=== PATIENT | male | born 1960 | race Caucasian/White ===

== ENCOUNTER 2019-10-15 09:02 | Inpatient (IN) | payer OTHER ==
[~2019-10-15] VITALS: Ht 177.8 cm; Wt 65.8 kg
--- NOTE | ~2019-10-15 | HC ---
[facility] [place] [address] CONSULTATION Name: JOHNATHON THORPE Sami Room #: 209-P ADM IN M.R.#: [id number] Admission: 10/15/19 Attend Phys: Dwaine Couch MD Discharge: Date of : 64 Report #: [id number] THIS REPORT FOR: //name// CC: Segundo Couch HISTORY OF PRESENT ILLNESS: The patient is a 58-year-old male who was admitted with what appears to be more of a left-sided pleuritic type chest pain. He has been coming on for a few days, he states and this has gotten worse recently, definitely worse with deep inspiration, but also describes pressure, heaviness, squeezing sensation across his chest. He states he has had a prior infarct, but no intervention, so I am questioning that. 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 He also believes he has been taking medications. He is a long time tobacco user and continues. He does have a nicotine patch on. His troponin is negative. His EKG has nonspecific changes. He does not recall any recent stress testing and he cannot tell me the date of the prior infarct. He allegedly takes gabapentin, albuterol, Lipitor, metoprolol 25, tramadol, meloxicam, fluticasone, tizanidine, diazepam, hydrochlorothiazide and testosterone. PAST MEDICAL AND SURGICAL HISTORY: HIV positive; prior infarct, but no documentation; COPD; tobacco use; brain aneurysm with coils; right knee surgery and left shoulder; cataract and continued tobacco use. ALLERGIES: IODINE, PENICILLIN, BEE STINGS. He apparently states he carries 6 EpiPen. FAMILY HISTORY: Negative for premature coronary artery disease except for his grandfather. SOCIAL HISTORY: He is currently homeless, has disability, heavy tobacco user, has a partner who is intermittently with no children. IMAGING DATA: Chest x-ray, some density in the left upper lobe, some possible scarring and atelectasis. PHYSICAL EXAMINATION: GENERAL: He is pleasant, alert. He does wince in pain with deep inspiration, left-sided chest. VITAL SIGNS: Blood pressure is 140/76, pulse is 80s. HEENT: Eyes reveal xanthelasmas. Pharynx is clear. NECK: Shows preserved upstrokes without JVD or bruits. LUNGS: Prolonged expiratory phase. CARDIOVASCULAR: Regular rate and rhythm, S1, S2, distant heart tones. ABDOMEN: Soft. No HSM or abdominal bruit. EXTREMITIES: Reveal no edema. His pulses diminished, but intact. NEUROLOGIC: Nonfocal. [facility] [address] [place] [address] CONSULTATION Name: JOHNATHON THORPE Room #: 209-P [facility] IN M.R.#: [id number] Admission: 10/15/19 Attend Phys: Dwaine Couch MD Discharge: Date of : 64 Report #: [id number] SKIN: Warm and dry without xanthoma or ulcer. MUSCULOSKELETAL: Generalized arthritic changes. ASSESSMENT: 1. Chest pain of unclear etiology, appears to have a pleuritic component, rule out significant underlying coronary ischemia. 2. Tobacco abuse, chronic obstructive pulmonary disease. 3. Hypertension. 4. Hypercholesterolemia. RECOMMENDATIONS AND PLAN: We will obtain echo Doppler, nuclear stress testing. He is not able to ambulate for a stress test otherwise. His laboratory work, creatinine is 0.9, troponin is negative. His CBC is unremarkable at 15 and 46. Not sure we will be able to obtain any documentation of prior coronary artery disease or infarct, but I will be able to comment on that once I obtained the echo and the nuclear test ____ prior damage or any ischemic cardiomyopathy and looking to rule out any significant ischemia. Would continue current medical therapy. We will follow with you. Thank you for asking me to assist in the care of this patient. By: 0902 0928 /nt
[2019-10-15 09:10] VITALS: BP 147/77
[2019-10-15] MEDS ORDERED: GENVOYA TABLET1 EACH PO (09:32)
[2019-10-15 09:54] LABS: MCHC 32.5 g/dL (28.0-37.0)
[2019-10-15 09:56] LABS: MCH 31.2 pg (26.0-34.0); PLATELET COUNT 248 thou/uL (150-400); RBC 4.79 mil/uL (4.50-6.00); RDW 14.1 % (10.5-14.5); WBC 8.2 thou/uL (4.0-11.0)
[2019-10-15 09:59] LABS: ANION GAP 8 mmol/L (7-16); BUN 16 mg/dL (7-18); CALCIUM 10.6 mg/dL (8.5-10.1); CHLORIDE 99 mmol/L (98-107); CO2 28 mmol/L (21-32); CREATININE 0.9 mg/dL (0.7-1.3); GLUCOSE 89 mg/dL (74-106); POTASSIUM 4.2 mmol/L (3.5-5.1); SODIUM 135 mmol/L (136-145)
[2019-10-15 10:07] LABS: TROPONIN-I <0.06 ng/mL (<0.06)
[2019-10-15 10:34] LABS: ABSOLUTE NEUTROPHILS 4.5 thou/uL (1.4-8.2); PLATELET ESTIMATE NORMAL
--- NOTE | 2019-10-15 11:08 | NUR ---
1042 PT REPORTS LEFT JAW PAIN, REPORTED TO VERONICA, NO ORDERS RECIEVED.
[2019-10-15] MEDS ORDERED: NEURONTIN 300300 M1 PO (11:18)
[2019-10-15] MEDS ORDERED: PROAIR HFA8.5 GM INH (11:19)
[2019-10-15] MEDS ORDERED: LIPITOR 40 MG T40 M1 PO (11:19)
[2019-10-15] MEDS ORDERED: TOPROL XL25 MG PO (11:19)
[2019-10-15] MEDS ORDERED: TRAMADOL 50 MG50 MG PO (11:21)
[2019-10-15] MEDS ORDERED: MELOXICAM15 MG PO (11:21)
[2019-10-15] MEDS ORDERED: MARINOL 2.5 MG2.5 M1 PO (11:22)
[2019-10-15] MEDS ORDERED: BREO ELLIPTA 21 EACH IH (11:23)
[2019-10-15] MEDS ORDERED: TIZANIDINE4 MG/1 TA1 PO (11:23)
[2019-10-15] MEDS ORDERED: HYDROCHLOROTHIA25 M2 PO (11:25)
[2019-10-15] MEDS ORDERED: DIAZEPAM 5 MG5 M1 (11:25)
[2019-10-15] MEDS ORDERED: TESTOSTERO200 MG/1 M IM (11:25)
[2019-10-15 13:06] VITALS: BP 130/75
[2019-10-15 14:00] VITALS: BP 146/84
[2019-10-15 16:00] VITALS: BP 149/80
--- NOTE | 2019-10-15 16:48 | EKG ---
[address] [address] ELECTROCARDIOGRAM REPORT Name: JOHNATHON THORPE Room #: 209-P ADM IN M.R.#: [id number] Admission: 10/15/19 Attend Phys: Dwaine Couch MD Discharge: Date of : 64 Report #: [id number] THIS REPORT FOR: //name// [facility] ED Test Date: 2019-10-15 Test Time: 09:05:46 Pat Name: JOHNATHON THORPE Department: Room: 209 Gender: M Data Consultant: michael : 1960 Requested By: Ivan Cam Order Number: [id number] MD: Aditya Ho Measurements Intervals [place] Rate: 62 P: 73 MO: 138 QRS: 7 QRSD: 110 T: -79 QT: 406 QTc: 413 Interpretive Statements Sinus rhythm Probable left atrial enlargement No previous ECG available for comparison Electronically Signed On 10-15-2019 16:48:39 WASHING AND SCREENING PLANT SUPERVISOR by Aditya Ho [email or web address] <ELECTRONICALLY SIGNED> By: Aditya Ho MD 10/15/19 1648 0905 4 Aditya Ho MD /DEENA
--- NOTE | 2019-10-15 16:49 | EKG ---
[address] [address] ELECTROCARDIOGRAM REPORT Name: JOHNATHON THORPE Room #: 209-P ADM IN M.R.#: [id number] Admission: 10/15/19 Attend Phys: Dwaine Couch MD Discharge: Date of : 64 Report #: [id number] THIS REPORT FOR: //name// [facility] ED Test Date: 2019-10-15 Test Time: 10:24:15 Pat Name: JOHNATHON THORPE Department: Room: 209 Gender: M Resource Efficiency Manager: GAYE : 1960 Requested By: Ivan Cam Order Number: [id number] MD: Aditya Ho Measurements Intervals [place] Rate: 74 P: 68 NM: 130 QRS: -14 QRSD: 88 T: 257 QT: 381 QTc: 423 Interpretive Statements Sinus rhythm Nonspecific T abnormalities, diffuse leads No previous ECG available for comparison Electronically Signed On 10-15-2019 16:49:00 DIRECTOR OF GRADUATE MEDICAL EDUCATION by Aditya Ho [email or web address] <ELECTRONICALLY SIGNED> By: Aditya Ho MD 10/15/19 1649 1024 [facility] Aditya Ho MD /DEENA
--- NOTE | 2019-10-15 17:04 | NUR ---
PT CARE ASSUMED APPROX 1400. ASSESSMENTS CHARTED. PT DENIES SOA. VSS. REPORTS PAIN TO LEFT CHEST. REPORTS ADEQUATE PAIN MANAGEMENT WITH [facility]. UP WITH SBA. IVF STARTED. PT'S PARTNER TO BRING HOME MEDS IN AND NONFORM MED ALREADY IN COMPUTER. WILL GET MEDS TO PHARMACY ONCE MEDS ARRIVE. SECURITY ASSURED THIS NURSE UPON INQUIRING THAT PT'S CAR WON'T BE TOWED FROM ED PARKING LOT. PT INFORMED. NO DISTRESS NOTED.
[2019-10-16 04:39] VITALS: BP 171/75
[2019-10-16 05:30] LABS: HEMATOCRIT 40.4 % (42.0-52.0); HEMOGLOBIN 13.1 gm/dL (14.0-18.0); MCH 31.2 pg (26.0-34.0); MCHC 32.4 g/dL (28.0-37.0); MCV 96.1 fL (80.0-100.0); RBC 4.21 mil/uL (4.50-6.00); WBC 6.2 thou/uL (4.0-11.0)
[2019-10-16 05:59] LABS: ANION GAP 9 mmol/L (7-16); BUN 19 mg/dL (7-18); CALCIUM 9.4 mg/dL (8.5-10.1); CHLORIDE 100 mmol/L (98-107); CO2 25 mmol/L (21-32); GLUCOSE 85 mg/dL (74-106); POTASSIUM 4.6 mmol/L (3.5-5.1); SODIUM 134 mmol/L (136-145); TROPONIN-I <0.06 ng/mL (<0.06)
[2019-10-16 07:45] VITALS: BP 146/76
--- NOTE | 2019-10-16 07:54 | NUR ---
pt pain controlled with pain meds for few hours then it comes back, vss, pt appropriate with call light, voiding per urinal, iv fluids infusing, report given to next shift to con't with ppoc.
--- NOTE | 2019-10-16 09:50 | 2DMMODE ---
[facility] [address] [employer] [facility] [place] [address] 2 D/M-MODE ECHOCARDIOGRAM Name: THORPEJOHNATHON R Room #: 209-P [facility] IN .R.#: [id number] Admission: 10/15/19 Attend Phys: Dwaine Couch MD Discharge: Date of : 64 Report #: [id number] THIS REPORT FOR: //name// APPROVED REPORT Study performed: 10/16/2019 08:51:21 EXAM: Comprehensive 2D, Doppler, and color-flow Echocardiogram Patient Location: Bedside Room #: 209 Status: routine BSA: 1.82 HR: 75 bpm BP: 171/75 mmHg Rhythm: NSR Other Information Study Quality: Good Indications Chest pain, HTN. Hx: HTN, HLD, HIV, tobacco abuse. 2D Dimensions IVSd: 8.83 (7-11mm) LVOT Diam: 21.32 (18-24mm) LVDd: 56.62 mm PWd: 8.73 (7-11mm) Ascending Ao: 38.12 (22-36mm) LVDs: 40.82 (25-40mm) Aortic Root: 34.64 mm Volumes Left Atrial Volume (Systole) Single Plane 4CH: 33.97 mL Single Plane 2CH: 51.15 mL LA ESV Index: 27.00 mL/m2 Aortic Valve AoV Peak Oziel.: 1.26 m/s AO Peak Gr.: 6.31 mmHg LVOT Max P.57 mmHg LVOT Max V: 0.80 m/s ALEXANDRA Vmax: 2.28 cm2 Mitral Valve E/A Ratio: 1.2 MV Decel. Time: 197.14 ms MV E Max Oziel.: 0.62 m/s [facility] [address] [place] [address] 2 D/M-MODE ECHOCARDIOGRAM Name: JOHNATHON THORPE Room #: 209-P [facility] IN [facility]#: [id number] Admission: 10/15/19 Attend Phys: Dwaine Couch MD Discharge: Date of : 64 Report #: [id number] MV A Oziel.: 0.52 m/s MV PHT: 57.17 ms IVRT: 101.50 ms Pulmonary Valve PV Peak Oziel.: 0.81 m/s PV Peak Gr.: 2.65 mmHg Pulmonary Vein P Vein S: 0.54 m/s P Vein D: 0.44 m/s P Vein S/D Ratio: 1.23 Tricuspid Valve TR Peak Oziel.: 2.37 m/s RAP Estimate: 5.00 mmHg TR Peak Gr.: 23.00 mmHg PA Pressure: 28.00 mmHg Left Ventricle The left ventricle is normal size. There is normal LV segmental wall motion. There is normal left ventricular wall thickness. Left ventricular systolic function is normal. LVEF is 50-55%. Right Ventricle The right ventricle is normal size. The right ventricular systolic function is normal. Atria The left atrium size is normal. The right atrium size is normal. Aortic Valve The aortic valve is normal in structure. Trace aortic regurgitation. There is no aortic valvular stenosis. Mitral Valve The mitral valve is normal in structure. Mild mitral annular calcification. Mild mitral regurgitation. Tricuspid Valve The tricuspid valve is normal in structure. Trace to mild tricuspid regurgitation. Estimated PAP is 28mmHg. Pulmonic Valve Pulmonic valve is not well visualized. Trace pulmonic regurgitation. [facility] [place] [address] 2 D/M-MODE ECHOCARDIOGRAM Name: JOHNATHON THORPE Room #: 209-P [facility] IN .R.#: [id number] Admission: 10/15/19 Attend Phys: Dwaine Couch MD Discharge: Date of : 64 Report #: [id number] Great Vessels The aortic root is normal in size. Ascending aorta is not well visualized. IVC is normal in size and collapses >50% with inspiration. Pericardium There is no pericardial effusion. <Conclusion> The left ventricle is normal size. LVEF is 50-55%. The aortic valve is normal in structure. Trace aortic regurgitation. The mitral valve is normal in structure. Mild mitral annular calcification. Mild mitral regurgitation. The tricuspid valve is normal in structure. Trace to mild tricuspid regurgitation. Estimated PAP is 28mmHg. Pulmonic valve is not well visualized. Trace pulmonic regurgitation. There is no pericardial effusion. <ELECTRONICALLY SIGNED> By: Donis Sorensen MD 10/16/19948 8 8 Donis Sorensen MD /INF
[2019-10-16 11:40] VITALS: BP 140/74
--- NOTE | 2019-10-16 14:13 | NUR ---
Chart reviewed and case discussed with the care team. Pt admitted with cp and workup is in progress. Pt is a&ox4 and is normally indep with gait and adl's. His car is in the ED parking lot. Pt's partner noted as his emergency contact. Pt reported to staff that he is homeless but staying with his partner. He is an HIV pt on treatment and brought in his home meds. He is on ss disability and has good insurance coverage through [facility]'s dual medicare/[place] medicaid plan. Pt is up with sba at this time. No dme. The pt's pcp is Dr Segundo Hunter. No dc planning needs identified at this time. Will follow along should dc needs arise.
[2019-10-16 15:50] VITALS: BP 138/66
[2019-10-16 19:06] VITALS: BP 144/85
--- NOTE | 2019-10-17 06:26 | NUR ---
Pt states his pain is better controlled especially with kpad, vss, prn pain meds given as needed, resting comfortably in room thru the night, will con't to monitor per ppoc.
[2019-10-17 07:55] VITALS: BP 150/91
[2019-10-17 11:25] VITALS: BP 150/91
[2019-10-17] MEDS ORDERED: AZITHROMYCIN 2250 MG PO (12:07)
[2019-10-17] MEDS ORDERED: NICOTINE TRANSD14 M1 TRANSDERM (12:07)
[2019-10-17] MEDS ORDERED: NORCO 5-325 TA1 EAC1 PO (12:07)
[2019-10-17] MEDS ORDERED: PREDNISONE 10 M10 M1 PO (12:08)
[2019-10-17 12:29] VITALS: BP 150/91
--- NOTE | 2019-10-17 13:24 | NUR ---
ASSUMED CARE OF PT AT SHIFT CHANGE. ASSESSMENT CHARTED. MEDS GIVEN PER JAN. VSS. A&OX4. C/O PAIN TREATED WITH HEATING PAD. PT DECLINED PAIN MEDS. PT UP AD JUDY. DISCHARGE ORDERS AND INSTRUCTIONS COMPLETE. PT LEFT WITH ALL BELONGINGS AND SIGNED RX. DC'D TELE AND IV. WALKED PT TO ER ENTRANCE.
[2019-10-17 13:26] VITALS: BP 150/91
== END 2019-10-17 14:42 | disposition home or self-care (01) | DRG 206 ==
LOC: ER 09:02 → EROBS 12:52 → 2N 12:52
PROVIDERS: Emergency Medicine; ADMIT Hospitalist
DX: M94.0 Chondrocostal junction syndrome [Tietze] (principal); I10 Essential (primary) hypertension; E78.00 Pure hypercholesterolemia, unspecified; E78.5 Hyperlipidemia, unspecified; F17.210 Nicotine dependence, cigarettes, uncomplicated; I67.1 Cerebral aneurysm, nonruptured; Z23 Encounter for immunization; Z88.0 Allergy status to penicillin; I25.2 Old myocardial infarction; Z88.8 Allergy status to other drugs, medicaments and biological substances; Z91.041 Radiographic dye allergy status
CPT/HCPCS: 10081

== ENCOUNTER 2019-11-30 17:20 | Observation (INO) | payer OTHER ==
[~2019-11-30] VITALS: Ht 180.3 cm; Wt 67.1 kg
[~2019-11-30 17:20] MED LIST: AZITHROMYCIN 2250 MG PO; BREO ELLIPTA 21 EACH IH; DIAZEPAM 5 MG5 M1; GENVOYA TABLET1 EACH PO; HYDROCHLOROTHIA25 M2 PO; LIPITOR 40 MG T40 M1 PO; MARINOL 2.5 MG2.5 M1 PO; MELOXICAM15 MG PO; NEURONTIN 300300 M1 PO; NICOTINE TRANSD14 M1 TRANSDERM; NORCO 5-325 TA1 EAC1 PO; PREDNISONE 10 M10 M1 PO; PROAIR HFA8.5 GM INH; TESTOSTERO200 MG/1 M IM; TIZANIDINE4 MG/1 TA1 PO; TOPROL XL25 MG PO; TRAMADOL 50 MG50 MG PO
[2019-11-30 17:21] VITALS: BP 143/65
[2019-11-30] MEDS ORDERED: PREDNISONE 20 M20 MG PO (19:22)
[2019-11-30] MEDS ORDERED: VENTOLIN HFA 1818 GM INH (19:22)
[2019-11-30] MEDS ORDERED: PEPCID20 MG PO (19:22)
[2019-11-30 20:52] LABS: HEMATOCRIT 39.3 % (42.0-52.0); HEMOGLOBIN 12.8 gm/dL (14.0-18.0); MCH 30.6 pg (26.0-34.0); MCHC 32.4 g/dL (28.0-37.0); MCV 94.2 fL (80.0-100.0); RBC 4.17 mil/uL (4.50-6.00); WBC 13.8 thou/uL (4.0-11.0)
[2019-11-30 21:03] LABS: CALCIUM 9.9 mg/dL (8.5-10.1); CREATININE 1.1 mg/dL (0.7-1.3); POTASSIUM 4.2 mmol/L (3.5-5.1)
[2019-11-30 21:44] VITALS: BP 111/64
[2019-11-30 21:52] VITALS: BP 111/64
[2019-11-30 22:51] VITALS: BP 139/87
--- NOTE | 2019-12-01 00:30 | NUR ---
ASSUMED CARE OF PT AT 2235HRS. PT IS ALERT AND ORIENTED X4 BUT IS DROWSY AT THIS TIME. FALL PRECAUTION IS IN PLACE FOR THIS REASON. PT WAS ABLE TO ANSWER ADMISSION RELATED QUESTIONS. PT WAS ORIENTED TO THE UNIT AND THE ROOM. FACE AND CHEST ARE REDDENED FOROM ALLERGIC REACTION. ORDERS RECEICVED AND STARTED. PT REQUESTED FOOD AND A LUNCHBOX WAS PROVIDED. PT WAS ABLE TO GET COMFORTABLE AND SLEEP PART OF THE SHIFT. VSS AND NO S/S OF ACUTE DISTRESS. WILL CONTINUE TO MONITOR.
[2019-12-01 04:29] VITALS: BP 130/68
[2019-12-01 05:34] LABS: HEMOGLOBIN 12.9 gm/dL (14.0-18.0); MCH 30.7 pg (26.0-34.0); MCHC 32.9 g/dL (28.0-37.0); MCV 93.3 fL (80.0-100.0); RBC 4.19 mil/uL (4.50-6.00); RDW 15.7 % (10.5-14.5); WBC 6.9 thou/uL (4.0-11.0)
[2019-12-01 05:47] LABS: CALCIUM 9.6 mg/dL (8.5-10.1); CREATININE 1.2 mg/dL (0.7-1.3); POTASSIUM 4.6 mmol/L (3.5-5.1)
--- NOTE | 2019-12-01 05:55 | NUR ---
THE NIGHT PROGRESSED, NO NOTEABLE CHANGES. PT WAS ABLE TO SLEEP COMFORTABLY. PT TURNS SELF. VSS AND NO S/S OF ACUTE DISTRESS. WILL CONTINUE TO MONITOR.
--- NOTE | 2019-12-01 06:47 | NUR ---
PT REPORTS THAT HE IS MISSING HIS WALLET. ROOM SEARCHED. ER CALLED AND WAS TOLD THEY WILL LOOK AROUND.
[2019-12-01 07:25] VITALS: BP 145/75
[2019-12-01 11:45] VITALS: BP 133/65
[2019-12-01] MEDS ORDERED: PREDNISONE 20 M20 M1 PO (12:48)
[2019-12-01 13:08] VITALS: BP 133/65
--- NOTE | 2019-12-01 13:42 | NUR ---
ASSUMED CARE AT SHIFT CHANGE, ALERT AND ORIENTED X4. DENIES ANY DISCOMFORT AND VSS. DISCHARGE AND MEDICATION INSTRUCTOINS GIVEN TO PAEIENT. PATIENT DISCHARGED HOME.
== END 2019-12-01 14:05 | disposition home or self-care (01) ==
LOC: ER 17:20 → 2N 20:33 → EROBS 20:33 → 2N 20:33
PROVIDERS: Emergency Medicine; Nurse Practitioner Family; ADMIT Hospitalist
DX: T78.2XXA Anaphylactic shock, unspecified, initial encounter (principal); J44.9 Chronic obstructive pulmonary disease, unspecified; I10 Essential (primary) hypertension; E78.5 Hyperlipidemia, unspecified; F41.0 Panic disorder [episodic paroxysmal anxiety]; B20 Human immunodeficiency virus [HIV] disease; I25.2 Old myocardial infarction; F17.210 Nicotine dependence, cigarettes, uncomplicated
CPT/HCPCS: 10081

== ENCOUNTER 2020-04-05 17:30 | Emergency (ER) | payer OTHER ==
[~2020-04-05] VITALS: Ht 180.3 cm; Wt 70.3 kg
[~2020-04-05 17:30] MED LIST changes: +PEPCID20 MG PO; +PREDNISONE 20 M20 M1 PO; +PREDNISONE 20 M20 MG PO; +VENTOLIN HFA 1818 GM INH
[2020-04-05] MEDS ORDERED: MARINOL 2.5 MG2.5 M1 PO (18:11)
[2020-04-05 18:13] LABS: HEMATOCRIT 46.2 % (42.0-52.0); HEMOGLOBIN 15.3 gm/dL (14.0-18.0); MCV 90.8 fL (80.0-100.0); PLATELET COUNT 282 thou/uL (150-400); RBC 5.09 mil/uL (4.50-6.00); RDW 16.6 % (10.5-14.5); WBC 8.3 thou/uL (4.0-11.0)
[2020-04-05] MEDS ORDERED: TRAMADOL 50 MG50 MG PO (18:13)
[2020-04-05] MEDS ORDERED: MELOXICAM15 MG PO (18:13)
[2020-04-05] MEDS ORDERED: NICOTINE TRANSD21 M1 (18:14)
[2020-04-05 18:25] LABS: ANION GAP 8 mmol/L (7-16); BUN 10 mg/dL (7-18); CALCIUM 9.5 mg/dL (8.5-10.1); CHLORIDE 100 mmol/L (98-107); CO2 25 mmol/L (21-32); CREATININE 1.1 mg/dL (0.7-1.3); GLUCOSE 97 mg/dL (74-106); POTASSIUM 3.9 mmol/L (3.5-5.1); SODIUM 133 mmol/L (136-145)
[2020-04-05 18:36] LABS: ALBUMIN 3.6 g/dL (3.4-5.0); LIPASE 158 U/L (73-393); SGOT 17 U/L (15-37); SGPT 13 U/L (30-65); TOTAL BILIRUBIN 0.8 mg/dL (<0.1-1.0); TOTAL PROTEIN 7.3 g/dL (6.4-8.2); TROPONIN-I <0.06 ng/mL (<0.06)
[2020-04-05 18:47] LABS: ABSOLUTE NEUTROPHILS 4.6 thou/uL (1.4-8.2)
[2020-04-05 18:48] LABS: ANISOCYTOSIS 1+
[2020-04-05 19:48] LABS: URINE BILIRUBIN NEGATIVE (Negative); URINE BLOOD NEGATIVE (Negative); URINE CLARITY CLEAR; URINE COLOR YELLOW; URINE GLUCOSE-RANDOM* NEGATIVE (Negative); URINE KETONES NEGATIVE (Negative); URINE LEUKOCYTES-REFLEX NEGATIVE (Negative); URINE NITRITE-REFLEX NEGATIVE (Negative); URINE PROTEIN (DIPSTICK) NEGATIVE (Negative); URINE SPECIFIC GRAVITY 1.025 (1.005-1.035)
[2020-04-05 23:09] VITALS: BP 138/76
--- NOTE | 2020-04-06 08:05 | EKG ---
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[place] [facility] [place] 1960 Requested By: Samantha Crockett Order Number: [id number] MD: Segundo Gudino Measurements Intervals [place] Rate: 64 P: 64 NH: 128 QRS: -45 QRSD: 101 T: -64 QT: 393 QTc: 406 Interpretive Statements Sinus rhythm Left anterior fascicular block Nonspecific T wave abnormality Compared to ECG 10/15/2019 10:24:15 T-wave abnormality still present Electronically Signed On 04-06-2020 8:03:50 CDT by Segundo Gudino [email or web address] <ELECTRONICALLY SIGNED> By: Segundo Gudino MD, [facility] 04/06/20 0803 1744 1744 Seugndo Gudino MD, [facility] /EPI
== END 2020-04-05 23:11 | disposition home or self-care (01) ==
LOC: ER 17:30
PROVIDERS: Emergency Medicine; Nurse Practitioner Family
DX: R07.89 Other chest pain (principal); R51 Headache; R10.12 Left upper quadrant pain; M54.9 Dorsalgia, unspecified; J44.9 Chronic obstructive pulmonary disease, unspecified; I25.2 Old myocardial infarction; I10 Essential (primary) hypertension; F17.210 Nicotine dependence, cigarettes, uncomplicated; Z88.0 Allergy status to penicillin; Z91.018 Allergy to other foods; Z86.73 Personal history of transient ischemic attack (TIA), and cerebral infarction without residual deficits; Z98.890 Other specified postprocedural states; Z79.899 Other long term (current) drug therapy; Z91.030 Bee allergy status

== ENCOUNTER → 2020-07-02 | Outpatient (CLI) | payer OTHER ==
[~2020-07-02] MED LIST changes: +NICOTINE TRANSD21 M1
== END ==
LOC: RAD 12:21
PROVIDERS: ATTEND Internal Medicine
DX: J44.9 Chronic obstructive pulmonary disease, unspecified (principal)

== ENCOUNTER 2020-07-19 17:04 | Emergency (ER) | payer OTHER ==
[~2020-07-19] VITALS: Ht 180.3 cm; Wt 70.3 kg
[2020-07-19 18:03] LABS: HEMATOCRIT 43.3 % (42.0-52.0); HEMOGLOBIN 14.5 gm/dL (14.0-18.0); MCH 29.6 pg (26.0-34.0); MCHC 33.5 g/dL (28.0-37.0); MCV 88.4 fL (80.0-100.0); PLATELET COUNT 253 thou/uL (150-400); RDW 17.2 % (10.5-14.5); WBC 9.3 thou/uL (4.0-11.0)
[2020-07-19 18:14] LABS: CALCIUM 8.9 mg/dL (8.5-10.1); POTASSIUM 3.9 mmol/L (3.5-5.1)
[2020-07-19 18:39] LABS: ABSOLUTE NEUTROPHILS 5.8 thou/uL (1.4-8.2); ATYPICAL LYMPHS 1 %; PLATELET ESTIMATE NORMAL
[2020-07-19] MEDS ORDERED: PROMS25 WY RECTAL (20:22)
[2020-07-19] MEDS ORDERED: NORCO 5-325 TA1 EAC2 PO (20:22)
[2020-07-19 20:51] VITALS: BP 136/86
== END 2020-07-19 20:51 | disposition home or self-care (01) ==
LOC: ER 17:04
PROVIDERS: Emergency Medicine
DX: G43.909 Migraine, unspecified, not intractable, without status migrainosus (principal); I67.1 Cerebral aneurysm, nonruptured; R11.2 Nausea with vomiting, unspecified; I10 Essential (primary) hypertension; I25.2 Old myocardial infarction; J44.9 Chronic obstructive pulmonary disease, unspecified; F17.210 Nicotine dependence, cigarettes, uncomplicated; Z86.73 Personal history of transient ischemic attack (TIA), and cerebral infarction without residual deficits; Z21 Asymptomatic human immunodeficiency virus [HIV] infection status; Z79.899 Other long term (current) drug therapy; Z88.0 Allergy status to penicillin; Z91.018 Allergy to other foods; Z88.8 Allergy status to other drugs, medicaments and biological substances; Z91.030 Bee allergy status

== ENCOUNTER 2020-08-25 16:00 | Emergency (ER) | payer OTHER ==
[~2020-08-25] VITALS: Ht 177.8 cm; Wt 72.6 kg
[~2020-08-25 16:00] MED LIST changes: +NORCO 5-325 TA1 EAC2 PO; +PROMS25 WY RECTAL
[2020-08-25] MEDS ORDERED: REGLAN 10 MG TA10 MG PO ×2 (16:45)
[2020-08-25] MEDS ORDERED: NORCO 10-325 T1 EACH PO ×2 (16:45)
[2020-08-25] MEDS ORDERED: PREGABALIN25 MG PO ×2 (16:45)
[2020-08-25 17:26] LABS: RBC 3.97 mil/uL (4.50-6.00)
[2020-08-25 17:28] LABS: HEMATOCRIT 34.9 % (42.0-52.0); HEMOGLOBIN 11.3 gm/dL (14.0-18.0); MCH 28.4 pg (26.0-34.0); MCHC 32.3 g/dL (28.0-37.0); PLATELET COUNT 367 thou/uL (150-400); RDW 18.4 % (10.5-14.5)
[2020-08-25 17:33] LABS: ANION GAP 9 mmol/L (7-16); BUN 10 mg/dL (7-18); CALCIUM 9.4 mg/dL (8.5-10.1); CHLORIDE 104 mmol/L (98-107); CO2 24 mmol/L (21-32); CREATININE 0.9 mg/dL (0.7-1.3); GLUCOSE 105 mg/dL (74-106); POTASSIUM 3.4 mmol/L (3.5-5.1); SODIUM 137 mmol/L (136-145)
[2020-08-25 17:44] LABS: ALBUMIN 3.4 g/dL (3.4-5.0); DIRECT BILIRUBIN 0.1 mg/dL (<0.1-0.2); SGOT 15 U/L (15-37); SGPT 19 U/L (30-65); TOTAL BILIRUBIN 0.8 mg/dL (0.2-1.0); TOTAL PROTEIN 7.3 g/dL (6.4-8.2); TROPONIN-I <0.06 ng/mL (<0.06)
[2020-08-25 17:53] LABS: ANISOCYTOSIS 2+
[2020-08-25 20:23] LABS: AMP/METHAMP Negative (Negative); BARBITURATES Negative (Negative); BENZODIAZEPINES Negative (Negative); COCAINE Negative (Negative); METHADONE Negative (Negative); OPIATES POSITIVE (Negative); PCP Negative (Negative)
[2020-08-25] MEDS ORDERED: PROTONIX40 MG PO (22:15)
[2020-08-25] MEDS ORDERED: ONDANSETRON ODT8 MG PO ×2 (22:16)
[2020-08-25 22:31] VITALS: BP 142/86
[2020-08-26 01:43] LABS: URINE BILIRUBIN NEGATIVE (Negative); URINE BLOOD NEGATIVE (Negative); URINE CLARITY SL CLOUDY; URINE COLOR YELLOW; URINE GLUCOSE-RANDOM* NEGATIVE (Negative); URINE KETONES NEGATIVE (Negative); URINE LEUKOCYTES-REFLEX NEGATIVE (Negative); URINE NITRITE-REFLEX NEGATIVE (Negative); URINE PROTEIN (DIPSTICK) NEGATIVE (Negative); URINE SPECIFIC GRAVITY >= 1.030 (1.005-1.035); URINE UROBILINOGEN 0.2 E.U./dl (0.2-1.0)
--- NOTE | 2020-08-26 07:53 | EKG ---
[facility] [place] [address] ELECTROCARDIOGRAM REPORT Name: JOHNATHON THORPE Room #: [facility]#: [id number] Admission: 08/25/20 Attend Phys: Discharge: 08/25/20 Date of : 64 Report #: [id number] THIS REPORT FOR: cc: KARRIE - Yesika family physician/PCP KARRIE - No family physician/PCP Segundo Gudino MD 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 : 1960 Requested By: Chiquis Espinoza Order Number: [id number] MD: Segundo Gudino Measurements Intervals [place] Rate: 72 P: 58 DE: 140 QRS: -23 QRSD: 112 T: 21 QT: 400 QTc: 438 Interpretive Statements Sinus rhythm Borderline T wave abnormalities Compared to ECG 04/05/2020 17:44:41 No significant change was found Electronically Signed On 08-26-2020 7:53:34 CDT by Segundo Gudino [email or web address] <ELECTRONICALLY SIGNED> By: Segundo Gudino MD, [facility] 08/26/20 0753 53 53 Segunod Gudino MD, [facility] /EPI
[2020-08-26] MEDS ORDERED: PEPCID AC20 MG PO ×2 (17:23)
== END 2020-08-25 22:32 | disposition home or self-care (01) ==
LOC: ER 16:00
PROVIDERS: Emergency Medicine
DX: R10.11 Right upper quadrant pain (principal); R11.2 Nausea with vomiting, unspecified; J44.9 Chronic obstructive pulmonary disease, unspecified; I25.2 Old myocardial infarction; I10 Essential (primary) hypertension; F17.210 Nicotine dependence, cigarettes, uncomplicated; Z79.899 Other long term (current) drug therapy; Z91.030 Bee allergy status; Z88.0 Allergy status to penicillin; Z91.018 Allergy to other foods; Z86.73 Personal history of transient ischemic attack (TIA), and cerebral infarction without residual deficits

== ENCOUNTER 2020-08-27 06:25 | Day surgery (SDC) | payer OTHER ==
[~2020-08-27] VITALS: Ht 177.8 cm; Wt 72.6 kg
--- NOTE | ~2020-08-27 | O ---
[facility] [place] [address] OPERATIVE REPORT Name: JOHNATHON THORPE Room #: DEP [facility]..#: [id number] Admission: 08/27/20 Attend Phys: Mark López MD Discharge: 08/28/20 Date of : 64 Report #: [id number] THIS REPORT FOR: cc: FAM - Family physician unknown FAM - Family physician unknown Mark López MD ~ CC: KARRIE unknown Mark López PREOPERATIVE DIAGNOSIS: Abdominal pain consistent with cholecystitis. POSTOPERATIVE DIAGNOSIS: Cholecystitis. PROCEDURE PERFORMED: Laparoscopic cholecystectomy with intraoperative cholangiogram. SURGEON: Mark López MD ANESTHESIA: General anesthesia. COMPLICATIONS: None. ESTIMATED BLOOD LOSS: 15 mL. DESCRIPTION OF PROCEDURE: With the patient under general anesthesia, abdomen was prepped and draped in the sterile fashion. A 0.25% Marcaine was used to anesthetize the skin infraumbilically. A curvilinear incision about 2 cm was made. Fascia was grasped with hemostat. Fascia was then opened under visualization, 0 Vicryl suture placed on the fascia for retraction. Veress needle was then placed through the peritoneum. Abdominal cavity was insufflated with CO2. After creating pneumoperitoneum pressure of 15, 11 mm trocar was placed under visualization. No harm to underlying tissue. 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 No bowel adhesion identified. The right lower quadrant adhesion is secondary to his appendectomy. Gallbladder was identified. This is visualized on CT scan to be pretty lateral and it was lateral. No acute inflammation. Gallbladder was lifted cephalad and medially. The cystic duct was isolated. After cleaning off the peritoneum, it appeared that the cystic artery was swaying around the cystic duct. It was coming from posterior to anterior, wrapped itself around the cystic duct. After the artery was isolated, clipped x 2 proximally and 1 distally and divided. The cystic duct was isolated. Also, at this point, it was noted that the gallbladder decompressed with this maneuver. Cystic duct was isolated. Cystic duct was clipped at the junction to the gallbladder. Opening was made in the cystic duct. Cholangiogram catheter was placed. Fluoroscopic cholangiogram was obtained. The common bile duct filled out well, no filling defect. Common duct is of small size. I did have a little difficulty getting the catheter in all [address] [address] OPERATIVE REPORT Name: JOHNATHON THORPE Room #: DEP [facility] M.R.#: [id number] Admission: 08/27/20 Attend Phys: Mark López MD Discharge: 08/28/20 Date of : 64 Report #: [id number] There is some contrast extravasation. The catheter was removed. Proximal cystic duct was clipped x 2 and then divided. The anterior artery was then divided. The posterior artery was identified. This was clipped x 2 proximally, divided. Gallbladder was free from the liver bed without difficulty. The gallbladder was removed through the infraumbilical port. There is mild cholesterolosis identified in the gallbladder. Liver bed was checked, hemostasis obtained. Surgicel was placed. Irrigation was aspirated. Trocars removed. CO2 was evacuated. Infraumbilical fascia defect was closed with [id number] 0 Vicryl. Skin was closed with 5-0 PDS . Steri-Strip and Band-Aids applied. The patient tolerated the procedure. By: 1104 1153 Mark López MD /nt
[~2020-08-27 06:25] MED LIST changes: +NORCO 10-325 T1 EACH PO; +ONDANSETRON ODT8 MG PO; +PEPCID AC20 MG PO; +PREGABALIN25 MG PO; +PROTONIX40 MG PO; +REGLAN 10 MG TA10 MG PO
[2020-08-27 07:30] VITALS: BP 127/70
[2020-08-27 07:46] LABS: HEMATOCRIT 31.8 % (42.0-52.0); HEMOGLOBIN 10.4 gm/dL (14.0-18.0)
--- NOTE | 2020-08-27 13:28 | NUR ---
PT CARE ASSUMED FROM OR AT 1220. PT SLEEPING AND ARROUSABLE. VITALS STABLE. HIV+. SPOUSE IN THE ROOM WITH PT. 4 LAPSITES WITH BANDAIDS. 2L FOR COMFORT WHILE SLEEPING. IS IN ROOM. IV PATENT WITH NO REDNESS OR EDEMA, FLUIDS INFUSING. SCD'S IN PLACE. CALL LIGHT IN REACH. WILL CONTINUE TO MONITOR.
[2020-08-27 17:14] VITALS: BP 136/74
[2020-08-27 20:50] VITALS: BP 138/80
--- NOTE | 2020-08-28 04:43 | NUR ---
PATIENT ALERT AND ORIENTED X4. UPSET AT SHIFT CHANGE REGARDING HIS DIET WHICH HE WANTED ADVANCED FROM CLEAR LIQUIDS. HOWEVER, AM NURSE SPOKE WITH DR. BARRETT WHO REFUSED TO ADVANCE. PATIENT ALSO WANTED A NICOTENE PATCH TONIGHT. THIS NURSE CALLED ANSWERING SERVICE AND PAGED DR. BARRETT. (INFORMED PATIENT) DR. BARRETT ADVANCED DIET TO FULL LIQUIDS AND GAVE ORDER FOR PATCH, BOTH OF WHICH WERE IMPLEMENTED. PATIENT VERY ANXIOUS AND DEMANDING WITH NOTHING MOVING FAST ENOUGH AND WANTING HIS REQUESTS DONE IMMEDIATELY. PATIENT CALLED HOSPITAL FURNACE TAPPER FOR A REQUEST, WHEN I ASKED HIM IF HE USED HIS CALL BUTTON HE STATED IT DID NOT WORK. UPON TESTING IT RIGHT THEN (WORKING) HE WAS INFORMED TO ONLY USE HIS CALL LIGHT AND NOT TO CALL THE FURNACE TAPPER. INCISIONS FROM SURGERY 08/27/20 ARE DRY AND INTACT. BOTH CHARGE NURSE AND VEHICLE FARE COLLECTOR SPOKE TO PATIENT REGARDING HIS REQUESTS. MEDICATED WITH DIAZEPAM AT BEGINNING OF SHIFT FOR ANXIETY BEFORE HIS NICOTENE PATCH WAS AVAILABLE. PATIENT FINALLY WENT TO SLEEP AFTER EATING PUDDING, ABRIL CRACKERS, ICE CREAM, BROTH AND SEVERAL CUPS OF COFFEE. WILL MONITOR.
[2020-08-28 11:03] VITALS: BP 123/73
--- NOTE | 2020-08-28 12:00 | NUR ---
Assumed care of patient at 0700. Pt. is calm and cooperative. Pt. complains that he wants a regular diet and feels that he is ready to go. Pt. received discharge orders from doctor. Pt. received discharge teaching and information packet. Pt. left hospital with all belongings and at 1130.
--- NOTE | 2020-08-31 16:06 | PATH ---
[facility] [address] [place] [address] PATHOLOGY RPT PROCEDURE Name: JOHNATHON RAI Room #: DEP [facility] M.R.#: [id number] Admission: 08/27/20 Date of : 64 Discharge: 08/28/20 Report #: [id number] Path Case #: [id number] [facility] Accession Number: [id number] . 01 Material submitted: . gallbladder - GALLBLADDER . 02 Diagnosis: Gallbladder, cholecystectomy: - Mild chronic cholecystitis. - No calculi received (specimen received open). (IUV:ann; 08/31/2020) MBR 08/31/2020 1409 Local . 02 Electronically signed: . Aretha Valdivia MD, Pathologist NPI- [id number] . 01 Gross description: . The specimen is received in formalin labeled "Johnathon Rai, gallbladder" and consists of a previously opened green dixon gallbladder measuring 8.5 x 3.0 x 1.2 cm. The margin is inked black. No calculi are identified within the gallbladder lumen or container. The mucosa is green and velvety with an average wall thickness of 0.1 cm. No masses are identified. Commercial Appraiser sections are submitted in A1. (SDY; 08/30/2020) SYU/SYU 08/30/2020 1122 Local . 02 Pathologist provided ICD-10: K81.1 . 02 CPT . 352991 Specimen Comment: A courtesy copy of this report has been sent to [phone] Specimen Comment: Report sent to Performed at: [address], [place] [id number] MD Ar Dobbins MD Phone: [phone] Performed at: [address] [id number] MD Aretha Valdivia MD Phone: [phone]
== END 2020-08-28 11:30 | disposition home or self-care (01) ==
LOC: TBA 06:25 → OR 06:25 → TBA 06:26 → 4S 12:45 → OR 16:11
PROVIDERS: Anesthesiology; ATTEND Surgery
DX: R10.9 Unspecified abdominal pain (principal); K81.9 Cholecystitis, unspecified; I10 Essential (primary) hypertension; J44.9 Chronic obstructive pulmonary disease, unspecified; G43.909 Migraine, unspecified, not intractable, without status migrainosus; F17.210 Nicotine dependence, cigarettes, uncomplicated; K21.9 Gastro-esophageal reflux disease without esophagitis; Z98.890 Other specified postprocedural states; Z79.899 Other long term (current) drug therapy; Z98.41 Cataract extraction status, right eye; Z86.73 Personal history of transient ischemic attack (TIA), and cerebral infarction without residual deficits; Z98.42 Cataract extraction status, left eye; Z87.19 Personal history of other diseases of the digestive system; Z88.0 Allergy status to penicillin; Z91.041 Radiographic dye allergy status
CPT/HCPCS: 10102; 50010; 50101; 50411; 50555; 50558; 51489; 52265; 53307; 53310; 55245; 55317; 56462; 56525; 56526; 56719; 62110; 62900; 70005

== ENCOUNTER → 2020-10-08 | Outpatient (CLI) | payer OTHER | LOC: CAT 10:53 | PROVIDERS: ATTEND Internal Medicine | DX: Z12.2 Encounter for screening for malignant neoplasm of respiratory organs (principal); J84.10 Pulmonary fibrosis, unspecified; J43.9 Emphysema, unspecified; Z87.891 Personal history of nicotine dependence ==

== ENCOUNTER 2021-02-14 13:17 | Emergency (ER) | payer OTHER ==
[~2021-02-14] VITALS: Ht 180.3 cm; Wt 76.2 kg
[2021-02-14] MEDS ORDERED: ALBUTEROL2.5 MG/3 M INH (13:22)
[2021-02-14] MEDS ORDERED: ANORO ELLIPTA1 EACH INH (13:24)
[2021-02-14 13:43] LABS: HEMATOCRIT 36.8 % (42.0-52.0); HEMOGLOBIN 12.4 gm/dL (14.0-18.0); MCH 30.5 pg (26.0-34.0); MCHC 33.8 g/dL (28.0-37.0); MCV 90.3 fL (80.0-100.0); RBC 4.08 mil/uL (4.50-6.00); RDW 17.4 % (10.5-14.5); WBC 10.4 thou/uL (4.0-11.0)
[2021-02-14 13:55] LABS: ANION GAP 11 mmol/L (7-16); BUN 13 mg/dL (7-18); CALCIUM 9.9 mg/dL (8.5-10.1); CHLORIDE 94 mmol/L (98-107); CO2 27 mmol/L (21-32); GLUCOSE 89 mg/dL (74-106); POTASSIUM 3.6 mmol/L (3.5-5.1); SODIUM 132 mmol/L (136-145)
[2021-02-14 13:58] LABS: APTT 26.3 Seconds (24.5-32.8); PROTIME 11.2 Seconds (9.3-11.4)
[2021-02-14 14:05] LABS: ALBUMIN 3.8 g/dL (3.4-5.0); SGOT 18 U/L (15-37); SGPT 22 U/L (30-65); TOTAL BILIRUBIN 0.6 mg/dL (0.2-1.0); TOTAL PROTEIN 7.6 g/dL (6.4-8.2); TROPONIN-I <0.06 ng/mL (<0.06)
[2021-02-14 14:18] LABS: URINE BILIRUBIN NEGATIVE (Negative); URINE BLOOD NEGATIVE (Negative); URINE CLARITY CLEAR; URINE COLOR YELLOW; URINE GLUCOSE-RANDOM* NEGATIVE (Negative); URINE KETONES NEGATIVE (Negative); URINE LEUKOCYTES-REFLEX NEGATIVE (Negative); URINE NITRITE-REFLEX NEGATIVE (Negative); URINE PROTEIN (DIPSTICK) NEGATIVE (Negative); URINE UROBILINOGEN 0.2 E.U./dl (0.2-1.0)
--- NOTE | 2021-02-14 16:17 | EKG ---
[address] [facility] [place] [address] ELECTROCARDIOGRAM REPORT Name: ILAJOHNATHON Gallardo Room #: [facility]#: [id number] Admission: 02/14/21 Attend Phys: Discharge: Date of : 64 Report #: [id number] [facility] Test Date: 2021-02-14 Test Time: 13:23:13 Pat Name: JOHNATHON THORPE Department: Room: Gender: M Flight Line Mechanic: [facility] : 1960 Requested By: Pinky Jha Order Number: [id number] MD: Mason Packer Measurements Intervals [place] Rate: 79 P: 78 ND: 148 QRS: 25 QRSD: 99 T: 69 QT: 414 QTc: 475 Interpretive Statements Sinus rhythm Borderline T wave abnormalities Compared to ECG 08/25/2020 19:54:37 No significant changes Electronically Signed On 02-14-2021 16:17:31 CDT by Mason Packer [email or web address] <ELECTRONICALLY SIGNED> By: Mason Packer MD, [facility] 02/14/21 1617 1323 1323 Mason Packer MD, FACC /EPI
[2021-02-14] MEDS ORDERED: ATIVAN1 M1 PO (16:20)
[2021-02-14] MEDS ORDERED: PREDNISONE 10 M10 MG PO ×2 (17:09→17:51)
[2021-02-14 17:56] VITALS: BP 142/81
== END 2021-02-14 18:03 | disposition home or self-care (01) ==
LOC: ER 13:17
PROVIDERS: Nurse Practitioner Family
DX: J44.1 Chronic obstructive pulmonary disease with (acute) exacerbation (principal); R07.89 Other chest pain; I10 Essential (primary) hypertension; F17.210 Nicotine dependence, cigarettes, uncomplicated; Z79.899 Other long term (current) drug therapy; Z88.2 Allergy status to sulfonamides; Z88.0 Allergy status to penicillin; Z88.8 Allergy status to other drugs, medicaments and biological substances; Z91.030 Bee allergy status; Z20.822 Contact with and (suspected) exposure to COVID-19

== ENCOUNTER 2021-02-15 14:16 | Inpatient (IN) | payer OTHER ==
[~2021-02-15] VITALS: Ht 180.3 cm; Wt 91.6 kg
[~2021-02-15 14:16] MED LIST changes: +ALBUTEROL2.5 MG/3 M INH; +ANORO ELLIPTA1 EACH INH; +ATIVAN1 M1 PO; +PREDNISONE 10 M10 MG PO
[2021-02-15 14:17] VITALS: BP 141/89
[2021-02-15 14:51] LABS: HEMATOCRIT 36.9 % (42.0-52.0); MCH 29.4 pg (26.0-34.0); MCHC 32.4 g/dL (28.0-37.0); MCV 90.9 fL (80.0-100.0); PLATELET COUNT 313 thou/uL (150-400); RBC 4.06 mil/uL (4.50-6.00); RDW 16.9 % (10.5-14.5)
[2021-02-15 15:05] LABS: APTT 23.2 Seconds (24.5-32.8); PROTIME 11.3 Seconds (9.3-11.4)
[2021-02-15 15:15] LABS: ANION GAP 11 mmol/L (7-16); BUN 14 mg/dL (7-18); CHLORIDE 94 mmol/L (98-107); CO2 27 mmol/L (21-32); CREATININE 1.2 mg/dL (0.7-1.3); GLUCOSE 100 mg/dL (74-106); SGOT 17 U/L (15-37); SGPT 25 U/L (16-63); SODIUM 132 mmol/L (136-145); TOTAL BILIRUBIN 0.5 mg/dL (0.2-1.0); TOTAL PROTEIN 7.9 g/dL (6.4-8.2); TROPONIN-I <0.06 ng/mL (<0.06)
[2021-02-15 15:19] LABS: POTASSIUM 2.9 mmol/L (3.5-5.1)
[2021-02-15 15:28] LABS: ABSOLUTE NEUTROPHILS 16.3 thou/uL (1.4-8.2); ANISOCYTOSIS 1+
[2021-02-15 15:29] LABS: OVALOCYTES FEW; TARGET CELLS FEW
[2021-02-15 18:38] VITALS: BP 112/73
[2021-02-15 19:33] LABS: MAGNESIUM 2.1 mg/dL (1.8-2.4)
--- NOTE | 2021-02-15 19:41 | NUR ---
HAND OFF TOOL SENT TO CCU AT THIS TIME
[2021-02-15 19:57] VITALS: BP 94/53
[2021-02-15 20:55] VITALS: BP 123/73
[2021-02-16] VITALS (7 sets, daily range): BP systolic 96–127; BP diastolic 58–76
--- NOTE | 2021-02-16 00:59 | NUR ---
PT ADMITTED TO THE FLOOR AROUND 2100, PT IS VERY DROWSY, AWAKEN DURING ASSESSMENT BUT WILL FALL RIGHT BACK ASLEEP, ORIENTEDX3, ASSESSMENTS CHARTED, C/O LEFT CHEST PAIN, CASUALTY INSURANCE CLAIM ADJUSTER NOTIFIED, STAT EKG AND TROPONIN OBTAINED, CASUALTY INSURANCE CLAIM ADJUSTER NOTIFIED OF THE RESULTS, NO NEW ORDERS OBTAINED AT THIS TIME, PT IS SLEEPING, NO DISTRESS NOTED, MEDS GIVEN PER JAN, HELD ATIVAN D/T DROWSINESS, ADMISSION HX AND ASSESSMENT COMPLETED, NO NEEDS AT THIS TIME, WILL CONTINUE TO MONITOR AND FOLLOW POC
[2021-02-16 05:39] LABS: CALCIUM 8.9 mg/dL (8.5-10.1); CREATININE 1.1 mg/dL (0.7-1.3); MAGNESIUM 1.7 mg/dL (1.8-2.4); POTASSIUM 3.3 mmol/L (3.5-5.1)
[2021-02-16 05:41] LABS: HEMATOCRIT 30.8 % (42.0-52.0); HEMOGLOBIN 10.1 gm/dL (14.0-18.0); MCH 29.9 pg (26.0-34.0); MCHC 32.6 g/dL (28.0-37.0); MCV 91.5 fL (80.0-100.0); RBC 3.37 mil/uL (4.50-6.00); RDW 17.2 % (10.5-14.5); WBC 13.3 thou/uL (4.0-11.0)
--- NOTE | 2021-02-16 07:02 | EKG ---
[place] [address] [facility] [place] [address] ELECTROCARDIOGRAM REPORT Name: TERRIE THORPEPEDRITO Gallardo Room #: 202- ADM IN M.R.#: [id number] Admission: 02/15/21 Attend Phys: Silvia Blanchard MD Discharge: Date of : 64 Report #: [id number] [facility] Test Date: 2021-02-15 Test Time: 14:27:14 Pat Name: JOHNATHON THORPE Department: Room: 202 Gender: M Manager Academic: ESTELA : 1960 Requested By: Nahum Summers Order Number: [id number] : Mason Packer Measurements Intervals [place] Rate: 137 P: AL: QRS: 0 QRSD: 145 T: -82 QT: 375 QTc: 567 Interpretive Statements Atrial fibrillation Paired ventricular premature complexes Nonspecific intraventricular conduction delay Abnormal T, consider ischemia, inferior leads Artifact in lead(s) I,aVR,aVL,aVF,V1,V3,V4,V5,V6 Compared to ECG 02/14/2021 13:23:13 Ventricular premature complex(es) now present Sinus rhythm no longer present T-wave abnormality still present Electronically Signed On 02-16-2021 7:02:37 CDT by Mason Packer [email or web address] <ELECTRONICALLY SIGNED> By: Mason Packer MD, FACC 02/16/21 0702 1427 142 Mason Packer MD, [facility] /EPI
--- NOTE | 2021-02-16 07:03 | EKG ---
[address] [address] ELECTROCARDIOGRAM REPORT Name: JOHNATHON THORPE Sami Room #: 202 ADM IN M.R.#: [id number] Admission: 02/15/21 Attend Phys: Silvia Blanchard MD Discharge: Date of : 64 Report #: [id number] [facility] Test Date: 2021-02-15 Test Time: 23:55:48 Pat Name: JOHNATHON THORPE Department: Room: 202 P Gender: M Lead Technical Architect: [id number] : 1960 Requested By: Coral Charles Order Number: [id number] MD: Mason Packer Measurements Intervals [place] Rate: 61 P: 68 HI: 155 QRS: -28 QRSD: 116 T: -67 QT: 438 QTc: 442 Interpretive Statements Sinus rhythm Nonspecific intraventricular conduction delay Borderline low voltage, extremity leads Nonspecific T abnormalities, inferior leads Compared to ECG 02/15/2021 16:44:26 Intraventricular conduction delay now present T-wave abnormality now present Electronically Signed On 02-16-2021 7:03:42 CDT by Mason Packer [email or web address] <ELECTRONICALLY SIGNED> By: Mason Packer MD, FACC 02/16/21 0703 [id number] Mason Packer MD, FAC /EPI
--- NOTE | 2021-02-16 07:03 | EKG ---
[place] [address] [facility] [place] [address] ELECTROCARDIOGRAM REPORT Name: ILAJOHNATHON Gallardo Room #: 202- ADM IN M.R.#: [id number] Admission: 02/15/21 Attend Phys: Silvia Blanchard MD Discharge: Date of : 64 Report #: [id number] [facility] Test Date: 2021-02-15 Test Time: 16:44:26 Pat Name: JOHNATHON THORPE Department: Room: 202 Gender: M Spring Coiling Machine Setter: Sami SEN : 1960 Requested By: Nahum Summers Order Number: [id number] MD: Mason Packer Measurements Intervals [place] Rate: 98 P: 73 ID: 173 QRS: -15 QRSD: 104 T: 70 QT: 361 QTc: 461 Interpretive Statements Sinus rhythm Borderline left axis deviation Abnormal R-wave progression, early transition Artifact in lead(s) I,II,aVR,aVL,aVF,V1,V2 Compared to ECG 02/14/2021 13:23:13 T-wave abnormality no longer present Electronically Signed On 02-16-2021 7:02:53 CDT by Mason Packer [email or web address] <ELECTRONICALLY SIGNED> By: Mason Packer MD, FAC 02/16/21 0702 1644 1644 Mason Packer MD, [facility] /EPI
--- NOTE | 2021-02-16 09:56 | NUR ---
ASSUMED CARE OF PT AT 0700 PT IS EXTREMELY DROUSY AND IS SLURRING SOME OF HIS WORDS DR. KEITA CALLED AT 0828 TO SEE IF HE HAD TAKEN AN ANTIBIOTIC IN THE ER. SHE SAID THERE IS A SMALL CHANCE OF AN ALLERGY.
--- NOTE | 2021-02-16 16:54 | NUR ---
met with patient who admits with weakness and tremors. Patient reports he doesnt know when "its going to come on." Patient with hx of HIV, COPD. He resides in basement of his spouses brother in law and KA[place]AL. He reports brother in law/ live upstairs and he/spouse live in basement. Patient reports staris to climb from basement but spouse is always there either in front or behind him for steps. Patient has home oxygen via [employer] at [address] [place] [address]. He reports [employer] working on wheelchair for him for home. He has a cane. he does not have a walker. Discussed insurance usu covers a wc or walker for home. Patient reports need wc for outings/apt. Patient needs assist from spouse with bathing and sometimes dressing. he has bathroom with bath bench. He no longer drives. spouse drives. He reports spouses brother in law health decling he [place] and dementia. He reports if spouse not sister in law can hear him. Patient has no hx of rehab or HH care. Patient report if have needs prefer home with HH. He has a service dog that helps with his anxiety. [facility]. He cannot recall name. he prev had seen neuro at [facility] but they did not take his insurance. Suleman hernandez in process. Spouse is gone periodically he cuts hair. Offered to call spouse but he is cutting hair at this time. patient requests to call him in am 7-10.
--- NOTE | 2021-02-17 00:20 | NUR ---
WENT TO CHECK ON PT AT 2300 AND TO GIVE MN MEDS AND ASSESS, PT SLEEPING, DIFFICULT TO ROUSE, DID VERBALLY RESPOND AND OPENED EYES WITH PROMPTING. PT DID NOT APPEAR TO TRACK RN, LIGHTS TURNED ON AND ASKED PT TO FOLLOW RN FINGER WITH EYES. PT SAID THAT VISION WAS BLURRY. DID MOVE ARMS AND LEGS TO COMMAND AND WAS ABLE TO ACCURATELY STATE BIRTHDAY AND LOCATION. CALL TO DR. TAVARES WITH NEURO TO GIVE UPDATE REGARDING CHANGE IN STATUS. VS UNCHANGED. DR TAVARES STATES HE THINKS PT IS OVER SEDATED AND GAVE ORDERS TO HOLD AMYTRIPTYLINE AND LORAZEPAM AND DECREASE PRIMIDONE DOSAGE, MONITOR PT CLOSELY. WILL CONT TO MONITOR PT AND RR/02 SAT
[2021-02-17 03:36] VITALS: BP 114/67
--- NOTE | 2021-02-17 04:43 | NUR ---
PT MORE EASILY AROUSED THIS AM FOR 0400 ASSESSMENT, C/O OF HEADACHE. EXPLAINED WHAT HAPPENED. PT FOLLOWING COMMANDS, ABLE TO STATE BIRTHDAY AND LOCATION, MOVES ALL EXTREMITIES. STILL DROWSY AND DID NOT WANT TO OPEN EYES MUCH DUE TO THE LIGHT AGGRAVATING HIS HEADACHE. LIGHTS DIMMED, WILL HOLD OFF ON GIVING ANY MEDS THAT WOULD INCREASE DROWSINESS
[2021-02-17 05:53] LABS: HEMATOCRIT 32.7 % (42.0-52.0); HEMOGLOBIN 10.8 gm/dL (14.0-18.0); MCH 30.1 pg (26.0-34.0); MCHC 33.2 g/dL (28.0-37.0); MCV 90.7 fL (80.0-100.0); PLATELET COUNT 275 thou/uL (150-400); RDW 17.3 % (10.5-14.5); WBC 8.5 thou/uL (4.0-11.0)
[2021-02-17 06:18] LABS: PHOSPHORUS 2.4 mg/dL (2.5-4.9); POTASSIUM 4.2 mmol/L (3.5-5.1)
[2021-02-17 08:02] VITALS: BP 143/80
[2021-02-17 11:46] LABS: ABSOLUTE NEUTROPHILS 7.6 thou/uL (1.4-8.2)
[2021-02-17 11:47] LABS: ANISOCYTOSIS 1+; OVALOCYTES FEW
[2021-02-17 11:48] LABS: POIKILOCYTOSIS 1+; SCHISTOCYTES FEW
[2021-02-17 12:05] VITALS: BP 137/71
[2021-02-17 15:24] VITALS: BP 129/74
--- NOTE | 2021-02-17 15:32 | NUR ---
Case discussed with the care team. Neuro and psych evals in progress. [facility] evaling but awaiting imput from PT/OT/ST before making a decision. If accepted, they would need to submit for ins auth. Will f/u with all parties in the am.
--- NOTE | 2021-02-17 18:51 | NUR ---
ASSUMED CARE OF PT 0700. PT TREMORS MORE PRONOUNCED DURING SHIFT CHANGE. DR. CAMPBELL AND NERUOLOGY AWARE. ZYPREXA ADDED TODAY FOR PT MEDS. VSS. PROGRESSING IN NURSING PLAN OF CARE.
[2021-02-17 19:34] VITALS: BP 137/66
[2021-02-18] VITALS (8 sets, daily range): BP systolic 129–157; BP diastolic 58–81
--- NOTE | 2021-02-18 03:26 | NUR ---
Assumed pt care at 1900. Pt is alert and oriented. Continues to request for food. No acute event noted. Pt is laying in bed comfortably. Fall precaution in place. Assessment completed and documented. Denies any pain. Scheduled meds administered to pt. Tolerated PO intake. No acute events overnight. Continue to monitor. No further needs at this time.
--- NOTE | 2021-02-18 08:58 | NUR ---
PATIENT SEEN BY DEON VALDERRAMA NP WITH DR. REDMAN. PATIENT IS A CANDIDATE FOR ACUTE REHAB. AUTHORIZATION FOR [facility]/ACUTE REHAB INITIATED ON 02/17/21. WILL AWAIT RESPONSE. THANK YOU FOR THIS REFERRAL.
[2021-02-18] MEDS ORDERED: FLAGYL500 M1 PO (10:07)
[2021-02-18] MEDS ORDERED: OLANZAPINE2.5 MG PO (10:08)
[2021-02-18] MEDS ORDERED: NEURONTIN 300M300 M2 PO (10:08)
[2021-02-18] MEDS ORDERED: KEFLEX500 M1 PO (10:10)
--- NOTE | 2021-02-18 13:01 | NUR ---
02/18/21 1250 ORACLE SCM CONSULTANT HAD NOT BEEN CONTACTED BY PATIENT'S INSURANCE WITH FAX NUMBER TO SEND CLINICAL INFORMATION. CALL PLACED TO [facility] DUAL COMPLETE. FOUND THAT CASE HAD NOT BEEN GIVEN TO SUPERVISOR LAUNDRY YET. REQUESTED CASE BE ESCALATED FOR MORE RAPID DETERMINATION. INFORMED THAT WAS ONLY FOR EMERGENT SITUATION. LIAISON INFORMED METAL BONDING ASSEMBLER PATIENT WAS IN ACUTE HOSPITAL AND NOW READY TO ADMIT FOR ACUTE REHAB. DO NOT ANTICIPATE INSURANCE RESPONSE UNTIL 02/21/21.
--- NOTE | 2021-02-18 14:46 | NUR ---
Case discussed with the care team. [facility] has accepted the pt and submitted for insurance approval;although they do not anticipate getting it before Sunday. Pt will need repeat Covid test Sunday. Nursing notified.
--- NOTE | 2021-02-18 17:05 | NUR ---
PT CARE ASSUMED AT 0700. ASSESSMENTS CHARTED. MEDICATIONS CHARTED. LAC IV. RFA IV. NORMAL SINUS RHYTHM. URINAL. A X 1, WALKER, GAIT BELT. SLUGGISH SPEECH. PROFOUND TREMORS ON OCCASION. PT ACCEPTED INTO [facility] - REHAB, WON'T MOVE UNTIL SUNDAY INSURANCE HASN'T RESPONDED. COVID TEST NEEDED ON SUNDAY.
--- NOTE | 2021-02-19 04:06 | NUR ---
Assumed pt care at 1900. Pt is alert and oriented. No sign of distress noted in pt. Pt verbalizes migraine at the start of the shift. Tramadol was administered and patient stated that tylenol was not helping. LINING CLOSER was notified and ordered were put in. Fall precaution in place. Assessment completed and documented. No sign of distress. Scheduled meds administered to pt. No acute events overnight. Continue to monitor. No futher needs at this time.
[2021-02-19 04:34] VITALS: BP 145/73
[2021-02-19 07:15] VITALS: BP 152/81
[2021-02-19 15:20] VITALS: BP 128/67
--- NOTE | 2021-02-19 15:56 | NUR ---
PT ALERT AND ORIENTED WITH FORGETFULNESS. REPORT HAVING HEADACHE. SCHEDULED AND PRN MEDS GIVEN ORDERED. AT THE BEDSIDE. UPDATED ON PT'S PROGRESS. NO CONCERNS AT THIS TIME.
[2021-02-19 20:00] VITALS: BP 146/70
[2021-02-20 02:58] LABS: HEMOGLOBIN 9.7 gm/dL (14.0-18.0); MCH 29.9 pg (26.0-34.0); MCHC 32.5 g/dL (28.0-37.0); MCV 92.2 fL (80.0-100.0); RBC 3.25 mil/uL (4.50-6.00); RDW 17.9 % (10.5-14.5); WBC 22.8 thou/uL (4.0-11.0)
[2021-02-20 03:18] LABS: CALCIUM 8.2 mg/dL (8.5-10.1); CREATININE 0.9 mg/dL (0.7-1.3); MAGNESIUM 2.1 mg/dL (1.8-2.4); POTASSIUM 4.3 mmol/L (3.5-5.1)
[2021-02-20 06:20] VITALS: BP 145/72
[2021-02-20 07:05] VITALS: BP 144/71
--- NOTE | 2021-02-20 11:10 | NUR ---
PT IS AXOX4, ANXIOUS. VSS, AFEBRILE. PT IS ANXIOUS THIS MORNING, SOMETIMES TEARFUL. WHEN TALKING TO THE PT, PT STATES "I DON'T KNOW WHY I AM CRYING BUT I'M FEELING ANXIOUS." RX LORAZEPAM AND TIZANIDINE GIVEN. PT AT THE BED SIDE. PT ON 3LNC, PLACED IN MOUTH TO HELP WITH MOUTH BREATHING. PT WAS COVID SWABBED THIS AM. POC IS TO CONTINUE TO MONITOR VS, PAIN AND ANXIETY MGMT; PT TO TRANSFER TO N FOR ACUTE REHAB. FALL PRECAUTIONS IN PLACE. NO CONCERNS AT THIS TIME.
--- NOTE | 2021-02-20 14:30 | NUR ---
PT COMPLAINS OF ONCOMING HEADACHE/MIGRAINE. DR TAVARES CONSULTED. ORDERS FOR RX ONE TIME SOLUMEDROL, ONE TIME DEPACON FOR MIGRAINE COCKTAIL. ADDED RX KLONOPIN FOR SCHEDULED ANXIOLYTIC. WILL CONTINUE TO MONITOR. POC PAIN AND ANXIETY MGMT, TO INCLUDE TREMORS. FALL PRECAUTIONS IN PLACE. NO CONCERN AT THIS TIME.
[2021-02-20 15:20] VITALS: BP 104/68
[2021-02-20 19:26] VITALS: BP 153/86
--- NOTE | 2021-02-20 23:07 | NUR ---
PATIENT CALLED OUT AT 2220 C/O CHEST PAIN. ALL MEDS SCHEDULED ATTHIS TIME WAS GIVEN. PATIENT CONTINUES TO MOTH BREATH AT 28 TO 30 RESP, PER MINUTE. LIVE IN COMPANION WAS CALLED AND XANAX WAS GIVEN, EKG WAS DONE. NO CHANGES FROM LAST EKG. O2 UP TO 4L AND WILL CONTINUE TO MONITOR HOURLY.
[2021-02-21 04:10] VITALS: BP 161/77
--- NOTE | 2021-02-21 07:51 | EKG ---
[place] [address] [address] [place] [address] ELECTROCARDIOGRAM REPORT Name: ILAJOHNATHON Gallardo Room #: 202- ADM IN M.R.#: [id number] Admission: 02/15/21 Attend Phys: Silvia Blanchard MD Discharge: Date of : 64 Report #: [id number] [facility] Test Date: 2021-02-20 Test Time: 22:23:14 Pat Name: JOHNATHON THORPE Department: Room: 202 P Gender: M Transition Program Manager: LETTY : 1960 Requested By: Keeley López Order Number: [id number] MD: Mason Packer Measurements Intervals [place] Rate: 85 P: 0 MD: 187 QRS: 11 QRSD: 102 T: 202 QT: 540 QTc: 643 Interpretive Statements Sinus rhythm Paired ventricular premature complexes Abnormal T, consider ischemia, diffuse leads Prolonged QT interval Baseline wander in lead(s) II Compared to ECG 02/15/2021 23:55:48 Ventricular premature complex(es) now present Possible ischemia now present Prolonged QT interval now present Intraventricular conduction delay no longer present T-wave abnormality still present Electronically Signed On 02-21-2021 7:51:15 CDT by Mason Packer [email or web address] <ELECTRONICALLY SIGNED> By: Mason Packer MD, FACC 02/21/21 0751 22 22 aMson Packer MD, FAC /EPI
[2021-02-21 08:00] VITALS: BP 156/72
[2021-02-21 08:15] VITALS: BP 156/72
[2021-02-21 11:16] VITALS: BP 137/63
[2021-02-21 12:15] VITALS: BP 137/63
[2021-02-21 12:38] VITALS: BP 137/63
--- NOTE | 2021-02-21 13:25 | NUR ---
Awaiting auth for acute rehab [facility].
--- NOTE | 2021-02-21 16:33 | NUR ---
PT CARE ASSUMED AT 0700. ASSESSMENTS CHARTED. MEDICATIONS CHARTED. RAC IV, D/C'D INFILTRATED. LAC IV, D/C'D PT D/C'D ACCIDENTALLY. MED/SURG, NO TELEMETRY. TOILET/URINAL. TREMORS WORSEN WITH INCREASED ANXIETY. PT IS TO BE DISCHARGED TO [facility]-REHAB SOON COVID RESULTS ARE IN. PT IS ALLERGIC TO [place].
--- NOTE | 2021-02-21 17:02 | NUR ---
rec auth for acute rehab. Rehab liason sp with patient.
== END 2021-02-21 18:07 | DRG 191 ==
LOC: ER 14:16 → EROBS 16:47 → 2N 16:47
PROVIDERS: Emergency Medicine; Internal Medicine; ADMIT Internal Medicine; ATTEND Internal Medicine
DX: J44.1 Chronic obstructive pulmonary disease with (acute) exacerbation (principal); E46 Unspecified protein-calorie malnutrition; I69.354 Hemiplegia and hemiparesis following cerebral infarction affecting left non-dominant side; E87.2 Acidosis; F41.9 Anxiety disorder, unspecified; R25.1 Tremor, unspecified; D72.829 Elevated white blood cell count, unspecified; E87.6 Hypokalemia; I10 Essential (primary) hypertension; E78.5 Hyperlipidemia, unspecified; G43.909 Migraine, unspecified, not intractable, without status migrainosus; Z21 Asymptomatic human immunodeficiency virus [HIV] infection status; Z20.822 Contact with and (suspected) exposure to COVID-19; Z90.49 Acquired absence of other specified parts of digestive tract; Z98.42 Cataract extraction status, left eye; Z98.41 Cataract extraction status, right eye; Z87.891 Personal history of nicotine dependence; Z79.899 Other long term (current) drug therapy; Z91.030 Bee allergy status; Z88.0 Allergy status to penicillin; Z88.2 Allergy status to sulfonamides; Z88.8 Allergy status to other drugs, medicaments and biological substances; Z91.018 Allergy to other foods; Z68.28 Body mass index [BMI] 28.0-28.9, adult
CPT/HCPCS: 10081

== ENCOUNTER 2021-02-21 14:50 | Inpatient (IN) | payer OTHER ==
[~2021-02-21] VITALS: Ht 180.3 cm; Wt 89.2 kg
[~2021-02-21 14:50] MED LIST changes: +FLAGYL500 M1 PO; +KEFLEX500 M1 PO; +NEURONTIN 300M300 M2 PO; +OLANZAPINE2.5 MG PO
[2021-02-21 18:21] VITALS: BP 147/87
--- NOTE | 2021-02-21 18:21 | NUR ---
PT ARRIVED ON UNIT AND ORIENTED TO ROOM AND CALL LIGHT. HOME MEDS HAVE BEEN SENT TO THE PHARMACY ON THE LIFT TO BE RE-LABELED FOR USE ON REHAB. PT IS ANXIOUS AND SOA, BUT O2 SATS ARE 95%. WILL MONITOR CLOSELY
--- NOTE | 2021-02-22 05:11 | NUR ---
ASSESSMENT: PT REMAIN ALERT AND ORIENT TIMES FOUR. UP TO BR WITH SBA, USES URINAL WITH STANDING ON THE SIDE OF THE BED. DENIES PAIN. REQUESTED TO GET SOME SLEEP DURING THE NIGHT. AT THE BEGINNING OF THE SHIFT, PT WAS VERY ANXIOUS, TEARFUL AND FEAR OF THE UNKNOWN. CLONZEPAM/ZYPREXIA WAS VERY EFFECTIVE IN HELPING PT TO CALM DOWN TO GET A GOOD NIGHTS REST. 3 LITERS PER NC. PT SOMETIMES SHIFT CANNULA TO MOUTH, BEING A MOUTH BREATHER. PT'S HOME MEDS ARE NOW IN PT'S DRAWER. 2 NEBS AND GUENVA THAT HE TAKES DAILY FOR HIV. SLOW PROGRESS TOWARDS DC GOALS. WILL CONTINUE TO MONITOR.
[2021-02-22 05:16] LABS: HEMATOCRIT 30.4 % (42.0-52.0); MCH 30.2 pg (26.0-34.0); MCHC 32.9 g/dL (28.0-37.0); PLATELET COUNT 257 thou/uL (150-400); RBC 3.31 mil/uL (4.50-6.00); RDW 17.4 % (10.5-14.5); WBC 21.7 thou/uL (4.0-11.0)
[2021-02-22 05:28] LABS: CALCIUM 8.5 mg/dL (8.5-10.1); CREATININE 0.9 mg/dL (0.7-1.3); POTASSIUM 4.4 mmol/L (3.5-5.1)
[2021-02-22 08:56] LABS: ABSOLUTE NEUTROPHILS 19.3 thou/uL (1.4-8.2); NUCLEATED RBCS 1 /100WBC; PLATELET ESTIMATE NORMAL
[2021-02-22 09:15] VITALS: BP 155/72
--- NOTE | 2021-02-22 09:39 | NUR ---
chart review. he up working with therapy. he lives at home with family and his spouse. stay in basement and there is about 20 stairs. has assist at home with adls if needed. has home oxygen from [employer] and trying to get wheel chair from [employer]. has a cane, bath bench. spouse works outside the home. will cont following as needed for dc needs.
[2021-02-22 12:40] VITALS: BP 120/63
--- NOTE | 2021-02-22 12:44 | NUR ---
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 Consult received stating poor intake. Pt eating 75-100% meals. Ensure ordered. ST following and requires mechanically altered ground diet. Reports issues with dentures being loose and some pain with swallowing. Pt voices a 40+ lb weight gain over several months since he had gallbladder surgery. Low fat, high fiber guidelines suggested and D/C ensure to prevent further unwanted weight gain. Pt also on marinol and would suggest d/c this med. Place as low nutrition risk.
--- NOTE | 2021-02-22 12:49 | NUR ---
Nutrition: RECommend D/C marinol due to good intake of meals, 75-100% and pt reported 40+ lb weight gain over several months.
--- NOTE | 2021-02-22 13:25 | NUR ---
team meeting, reccommendation: max for stairs. mod for ot. severe cog/memory. [facility] soft ground diet, thin liquids. cxr. re team with dc 03/04 with 18/06. spouse to assist with bills and pills. ground floor at home, if can stay so wont have to do stays. hh ( pt, ot, st, nursing and sw). he will need dme to dc.
--- NOTE | 2021-02-22 19:32 | NUR ---
Patient experienced episodes of severe anxiety, followd Dr. Cabral's instruction, the staff tried to talk to the patient in a positive way, and the night nurse voiced that she would tried to use positive conversation to help the patient with the anxiety. complained of chest pain in the left side of the chest, radiatited to the left flank, left shoulder, left jaw, 9/10, vital sign taken during that time, see the chart, MOBILE MECHANIC Keeley was reported to.
[2021-02-22 19:58] VITALS: BP 142/75
--- NOTE | 2021-02-23 01:12 | NUR ---
Assumed pt care at 1900. A/OX4,VSS. C/o back of head pain at HS medicated per EMAR with relief reported. Pt less anxious this shift and no crying epeisodes noted,medicated at HS per EMAR and able to rest calmly. Does have dyspnea with exertion,O2 in place at 3L/NC. Voiding per urinal with minimal assist from staff. Resting quietly at this time,will continue to monitor pt.
[2021-02-23 08:00] VITALS: BP 154/79
--- NOTE | 2021-02-23 13:49 | NUR ---
PATIENT IS A&O X 3-4, ABLE TO VOICE NEED. PATIENT TOOK ALL MEDICATION WHOLE WITHOUT DIFFICULTY. PATIENT IS EATING MEALS, AND DRINKING FLUID WELL. PATIENT HAD EPISODE OF MUSCLE SPASM, AND TREMORS THIS MORNING, TIZANIDINE 4MG GIVEN WITH MORNING MEDICATION. PATIENT BECAME VERY ANXIOUS AFTER THERAPY, PRN QUETIAPINE 25MG GIVEN AT 1202HRS, WITH POSITIVE EFFECT. [address] AT 3 LITERS NC. PATIENT VOIDING WITH URINALS. SWALLOW STUDY NOT COMPLETED DUE TO PATIENT'S MULTIPLE ALLERGIES. LAXIS 40MG GIVEN X [address] PL[address] IN PLACE. PATIENT DENIES HAVING PHYSICAL PAIN AT THIS TIME. NO SIGN OF ACUTE DISTRESS NOTED AT THIS TIME, CALL LIGHT IN REACH, WILL CONTINUE TO MONITOR.
--- NOTE | 2021-02-23 16:26 | NUR ---
SPOKE TO Pt'S SPOUSE, VALENTIN, IN Pt'S ROOM. Pt'S SPOUSE CONFIRMS Pt WILL NOT HAVE TO GO TO BASEMENT UPON RETURN HOME, CAN STAY ON MAIN LEVEL. HAD A SHUFFLING GAIT PATTERN PRIOR TO ADMISSION. WAS ABLE TO DO STAIRS WITHOUT PHYSICAL ASSIST UNTIL THIS EPISODE WHICH IS WHEN Pt WAS BROUGHT INTO HOSPITAL. Pt'S SPOUSE ASKING TO SPEAK TO PSYCHIATRIST, PT PASSED REQUEST ON TO Pt'S NURSE.
[2021-02-23 19:41] VITALS: BP 129/77
--- NOTE | 2021-02-23 23:59 | NUR ---
ASSESSED AT START OF SHIFT PT IN BED. A&OX4. C/O PAIN IN TOES. PO TRAMADOL GIVEN. EVENING MEDS GIVEN CRUSHED IN PUDDING AND PT CAIO IT WELL. ON 2L OF O2. UP WITH SBA AND VOIDS VIA URINAL. NIGHT TIME SNACKS PROVIDED. FALL PREC IN PLACE. DENIES SOB, NAUSEA VOMITTING. WILL CONT TO MONITOR.
[2021-02-24 08:00] VITALS: BP 100/61
--- NOTE | 2021-02-24 12:27 | NUR ---
PATIENT BEGAN COUGHING AND BANGING ON HIS TABLE, NM ENTERED ROOM AND CALLED FOR STAFF EMERGENCY, PT WAS STATING THAT HE COULDN'T BREATHE AND SKIN ON FACE AND NECK WERE TURNING PURPLE. O2 PLACED PER NRB BY ANOTHER RN, AND PT ASSISTED TO BED WITH HEAD ELEVATED. RAPID RESPONSE WAS CALLED, AND PT STATED THAT HE CHOKED ON HIS FOOD. RT GAVE ALBUTEROL TREATMENT, O2 SAT 99-100% THE WHOLE TIME. RN GAVE SEROQUEL AND PT ALREADY MORE CALM.
--- NOTE | 2021-02-24 12:50 | NUR ---
JUVENILE PROBATION OFFICER activated - see flowsheet
[2021-02-24 13:05] VITALS: BP 130/62
--- NOTE | 2021-02-24 18:07 | NUR ---
Alert and orientated X4. Anxious. At times speaks with stutter. Early AM requesting med for significant hand tremors, provided with good results. States he is having difficulty swallowing but takes meds whole with apple sauce. Displaying needy, attention seeking behaviors. Breath sounds clear. Reg HR auscultated, tachycardia low 100s. Color pink with brisk capillary refill and palpable peripheral pulses. Voiding per urinal without difficulty. Active bowel sounds over large, soft, rounded abdomen. Eating lunch in room when he began shouting and pounding bedside table. Nurse plant general manager went into room. Pt. very anxious with increased RR 40s, tachycardia and stating that he couldn't breath. Also had significant hand tremors. Encouraged to take slow, deep breaths without success. FIO2 increased without change, rapid response called by nurse plant general manager. When attempting to transfer pt to bed, pt able to stand and all behavior ceased until he was placed back in bed where he again became anxious, with increased RR, pronounced breathing. Also noted to be tachycardic and hypertensive. CRIME SCENE INVESTIGATOR Maribel here assessing pt. 12 lead, CXR done. 1400 meds given early in additional to Robaxin. RT here giving tx. O2 sats middle 90s, FIO2 back to 2 liters. Pt. gradually calmed down and remained anxious about ability to eat d/t swallowing issues asking for someone to sit with him while he ate. Later in afternoon he continued to display helpless, needy behaviors. came to visit, at bedside for a couple of hours, asking appropriate questions.
[2021-02-24 19:26] VITALS: BP 123/72
--- NOTE | 2021-02-25 03:12 | NUR ---
assumed care approx 1900 evening 02/24. pt lying in bed dozing off and on at change of shift. pt stated he was tired and wanted to get his pills and go to sleep early. pt took hs meds with applesauce tolerating well. pt voiding per urinal. pt NPO after midnight. pt appears to be sleeping soundly. bed alarm on and call light in reach. will continue to monitor.
[2021-02-25 05:00] LABS: HEMATOCRIT 31.7 % (42.0-52.0); HEMOGLOBIN 10.2 gm/dL (14.0-18.0); MCH 30.1 pg (26.0-34.0); MCHC 32.2 g/dL (28.0-37.0); MCV 93.4 fL (80.0-100.0); PLATELET COUNT 263 thou/uL (150-400); RBC 3.39 mil/uL (4.50-6.00); RDW 17.4 % (10.5-14.5); WBC 19.7 thou/uL (4.0-11.0)
[2021-02-25 05:22] LABS: ALBUMIN 2.7 g/dL (3.4-5.0); CALCIUM 8.4 mg/dL (8.5-10.1); CREATININE 0.9 mg/dL (0.7-1.3); POTASSIUM 4.4 mmol/L (3.5-5.1); TOTAL BILIRUBIN 0.3 mg/dL (0.2-1.0); TOTAL PROTEIN 5.5 g/dL (6.4-8.2)
[2021-02-25 07:17] VITALS: BP 123/80
[2021-02-25 09:00] LABS: ABSOLUTE NEUTROPHILS 15.8 thou/uL (1.4-8.2); ANISOCYTOSIS 1+; PLATELET ESTIMATE NORMAL
--- NOTE | 2021-02-25 09:30 | NUR ---
ASSUMED CARE AT 0700. PT IS ALERT AND ORIENTATED X 3 AND GETS ANXIOUS VERY QUICKLY. PT HAS BEEN NPO SINCE MIDNIGHT FOR EGD TODAY. PT REQUESTED TO GET ANXIETY MEDS PRIOR TO PROCEDURE. SPOKE TO DEON STAHL, PER PEÑA STAHL (GI) OK TO GIVE SEROQUEL WITH SIPS OF WATER. PT STILL COMPLAINING OF FEELING ANXIOUS WITH HAVING TREMORS WHICH STOPS WITH DISTRACTION FROM TALKING AND FOCUSING ON CURRENT PROGRESS. PT MANAGED TO WORK WITH ST AND PHY THERAPY THIS MORNING. REPORT GIVEN TO EGD NURSE AND PT WAS WHEELED DOWN AROUND 1020 ALONG WITH HIS SPOUSE AT THE BEDSIDE.
[2021-02-25 13:16] VITALS: BP 147/85
[2021-02-25 19:30] VITALS: BP 137/87
--- NOTE | 2021-02-26 02:08 | NUR ---
assumed care approx 1900 evening 02/25. pt anxious and restless at change of shift. pt c/o nausea and vomiting. pt tearful and talking loudly. assisted pt with gown change and into bed. CARPENTER CRADLE AND DOLLY paged and order recd for onetime dose of IV Zofran. pt given and hs meds given early. pt settled down and since then has been sleeping fairly well. pt voiding per urinal. pt requesting several snacks thruout night as he states his throat is sore. given pudding, ice cream, and cold applesauce. bed alarm on and call light in reach. will continue to monitor. no more episodes of nausea/vomiting.
[2021-02-26 08:00] VITALS: BP 153/76
--- NOTE | 2021-02-26 10:47 | NUR ---
ASSUMED CARE AT 0700. PATIENT IS ALERT AND ORIENTED, VERY ANXIOUS, CRIES FREQ. PATIENT HAS NIK HAND TREMORS, FREQ PAINIC ATTACKS. PATIENT IS BEING FOLLOWED BY DR. SPENCER IN PSYCH. PATIENT REINOSO'S, LUNGS ARE DEMINISHED. PATIENT USES HOME INHALERS. PATIENT VOID PER URINAL. PATIENT HAS S.L. IN HIS RIGHT FORARM. PATIENT IS UP WITH 1 STAFF AND GAIT BELT AND WALKER. FALL AND SAFETY PROTOCOLS IN PLACE. C/O PAIN IN HIS LEGS AND BACK. MEDICATED WTIH PRN PAIN MED. CONTINUES TO PROGRESS SLOWY TOWARDS D/C GOALS. PATIENT HAS L.E. EDEMA NOTED BILATERALLY. ENCOURAGED PATIENT TO ELEVATE HIS FEET WHEN IN THE CHAIR OR BED. DR. RIOS HERE TO SEE PATIENT. AWARE OF CURRENT C/O INCREASED ANXIETY, AND TREMORS AND FREQ CRYING SPELLS. WILL CONTINUE TO MONITER.
[2021-02-26 11:56] LABS: FOLIC ACID 4.3 ng/mL (8.6-58.9)
[2021-02-26 20:00] VITALS: BP 117/66
--- NOTE | 2021-02-27 00:14 | NUR ---
PT ASSESSMENT COMPLETED AND VSS. MEDS GIVEN ORDERED AND WELL TOLERATED. FALL PRECAUTIONS IN PLACE. UP TO THE BEDSIDE WITH ASST TO VOID PER URINAL. PT VOIDING LARGE AMOUNT OF CYU. PT STATES THAT HE FEELS VERY ANXIOUS. PROVIDED MUCH EMOTIONAL SUPPORT. MEDICATION HELPFUL WITH HIS ANXIETY. SLEEPING WELL AT THIS TIME. WILL CONTINUE TO MONITOR FREQUENTLY.
[2021-02-27 07:50] VITALS: BP 126/78
--- NOTE | 2021-02-27 10:20 | NUR ---
ASSUMED CARE OF PT AT 0715. PT IS A&OX4. IS ON 2L OF O2/NC. IS STABLE. REPORTS MILD PAIN IN NECK & N/T IN HANDS & FEET. PAIN MEDS ADMINISTERED & OTHER THERAPUETIC TECHNIQUES USED. PT STATED, "TODAY IS THE FIRST DAY THAT I HAVE BEEN HAPPY & NOT IN MUCH PAIN. THE PAIN TODAY IS TOLERABLE". IS UP WITH 1 ASSIST, GB, WALKER. PT SHUFFLES WHEN IN A HURRY. FALL PRECAUTIONS & HOURLY ROUNDING CONTINUED THIS SHIFT. VITALS ASSESSED & LABS REVIEWED. PT IS CURRENTLY SITTING UP IN RECLINER, BILAT LE ELEVATED. CALL LIGHT WITHIN REACH. WATCHING TV. WILL CONTINUE TO MONITOR.
[2021-02-27 19:10] VITALS: BP 102/50
--- NOTE | 2021-02-27 19:20 | NUR ---
THIS NURSE WAS CALLED TO PT ROOM BY PATIENT STATING, "I NNEED SOOME ONE TO COME HERE". UPON ENTERING PT ROOM, THIS NURSE OBSERVED THE PT SHAKING UNCONTROLLABLY. THE PT WAS STUTTERING & STATED, "I'VE BEEN LIKE THIS FOR 5 MINUTES". THIS NURSE CALLED A RAPID RESPONSE & RETRIEVED THE CRASH CART. THE OTHER NURSE ASSESSED THE PT VITALS & O2 SAT. THE RAPID RESPONSE TEAM ARRIVED ALONG WITH THE DOCTOR. ORDERS WERE GIVEN & CARRIED OUT. THE PT IS CURRENTLY IN ROOM IN BED, RESTING COMFORTABLY & QUIETLY. THE NOC NURSE WAS GIVEN REPORT & ANOTHER SET OF VITALS WERE TAKEN. THE PT IS STABLE. CALL LIGHT WITHIN REACH. SAFETY MEASURES ARE IN PLACE.
--- NOTE | 2021-02-27 23:38 | NUR ---
PT ASSESSMENT COMPLETED AND VSS. PT SLEEPING COMFORTABLE AFTER RAT TEAM CALL BEFORE CHANGE OF SHIFT. RESULTS OF SCAN CALLED TO TIRE TRIMMER HAND AT HS. NO NEW ORDERS. PT WAKES EASILY WHEN IN ROOM THEN GOES BACK TO SLEEP. TIRE TRIMMER HAND SAID THAT WE COULD HOLD HS MEDS OR GIVE LATER DURING THE SHIFT DEPENDING ON WHEN PT WAKES UP. PT COMFORTABLE. RESTING. WILL CONTINUE TO MONITOR FREQUENTLY.
[2021-02-28 05:26] LABS: HEMATOCRIT 30.6 % (42.0-52.0); HEMOGLOBIN 9.8 gm/dL (14.0-18.0); MCHC 31.9 g/dL (28.0-37.0); MCV 94.2 fL (80.0-100.0); RBC 3.25 mil/uL (4.50-6.00); RDW 17.6 % (10.5-14.5); WBC 19.9 thou/uL (4.0-11.0)
[2021-02-28 05:49] LABS: ALBUMIN 2.8 g/dL (3.4-5.0); ANION GAP 7 mmol/L (7-16); BUN 22 mg/dL (7-18); CALCIUM 8.8 mg/dL (8.5-10.1); CHLORIDE 103 mmol/L (98-107); CO2 27 mmol/L (21-32); GLUCOSE 94 mg/dL (74-106); PHOSPHORUS 2.8 mg/dL (2.5-4.9); POTASSIUM 4.4 mmol/L (3.5-5.1); SODIUM 137 mmol/L (136-145); TROPONIN-I <0.06 ng/mL (<0.06)
[2021-02-28 07:15] VITALS: BP 142/87
--- NOTE | 2021-02-28 07:25 | EKG ---
[address] [address] ELECTROCARDIOGRAM REPORT Name: ILAJOHNATHON Gallardo Room #: 515- ADM IN M.R.#: [id number] Admission: 02/21/21 Attend Phys: Gbariel Mccoy MD Discharge: Date of : 64 Report #: [id number] [facility] Test Date: 2021-02-27 Test Time: 17:39:43 Pat Name: JOHNATHON THORPE Department: Room: [facility] Gender: M Fisher Scallop: JNGUM : 1960 Requested By: Rima Tomas Order Number: [id number] MD: Mason Packer Measurements Intervals [place] Rate: 130 P: W[place]: QRS: 193 QRSD: 137 T: 73 QT: 310 QTc: 456 Interpretive Statements Artifact Suspect sinus tachycardia Electronically Signed On 02-28-2021 7:25:39 CDT by Mason Packer [email or web address] <ELECTRONICALLY SIGNED> By: Mason Packer MD, [facility] 02/28/21 0725 1739 1739 Mason Packer MD, FACC /EPI
--- NOTE | 2021-02-28 12:35 | NUR ---
ASSUMED CARE AT 0700. SLEPT MOST OF THE EVENING AND GOT UP EARLY IN THE MORNING. ALERT AND ORIENTATED X 3. PT IS VERY TALKATIVE AND SEEMS ANXIOUS. PT EASILY REDIRECTED. PAIN IS MAINLY IN THE LOWER EXTREMITIES WITH COMPLAINS OF TINGLING AND BURNING AND REPORTED THE VOLTAREN GEL SEEMS TO BE HELPFUL. ANTI ANXIETY AND ANTI PSYCHOTIC DRUGS GIVEN SCHEDULED AND DOES NOT NEED ANY PRN SEROQUEL. NO SIGNS OF AGITATION OR IMPULSIVENESS. PT IS PUT ON CLEAR LIQUID FOR NOW. SPOKE TO PEÑA WITH GI, WILL RESUME TO SOFT DIET AND WILL REEVALUATE IF WILL NEED TO CHANGE TO REGULAR DIET. OK TO GIVE MEDS WHOLE WITH PUREE PER SPEECH THERAPY. CONTS TO WEAR 2L 02 AT ALL TIME AND SAT AT 96%. DR RIOS ADDED LORAZEPAM 1MG SL X 1 AND FENTANYL PATCH 25MCG. IS AWARE OF PT TAKING CLONAZEPAM AND SEROQUEL WELL. PARTICIPATED WITH THERAPY AND PROGRESSING TOWARDS GOAL. PLAN FOR DC HOME ON 03/04.
[2021-02-28 19:38] VITALS: BP 126/70
--- NOTE | 2021-03-01 02:08 | NUR ---
PATIENT STANDING AT BEDSIDE TO USE URINAL. APPRECIATES LYRICA FOR TINGLING FOOT PAIN, INCREASED SEROQUEL TO HELP HIM SLEEP AND CLONEZAPAM. TROUBLE WITH PERSISENT COUGHING THIS MORNING, MUCH IMPROVED AFTER DOSE OF SEROQUEL. O2 AT 2L CONTINUOUS
--- NOTE | 2021-03-01 07:01 | EKG ---
[address] [address] ELECTROCARDIOGRAM REPORT Name: JOHNATHON THORPE Sami Room #: 515- ADM IN M.R.#: [id number] Admission: 02/21/21 Attend Phys: Gabriel Mccoy MD Discharge: Date of : 64 Report #: [id number] [facility] Test Date: 2021-02-27 Test Time: 18:12:30 Pat Name: JOHNATHON THORPE Department: Room: [facility] Gender: M [employer] Pro: UNKNOWN : 1960 Requested By: Gabriel Mccoy Order Number: [id number] : Mason Packer Measurements Intervals [place] Rate: 108 P: 43 VT: 127 QRS: 3 QRSD: 93 T: 16 QT: 337 QTc: 452 Interpretive Statements Sinus tachycardia Probable left atrial enlargement Borderline T wave abnormalities Baseline wander in lead(s) I,II,aVR Compared to ECG 02/27/2021 17:39:43 T-wave abnormality now present Electronically Signed On 03-01-2021 7:00:56 CDT by Mason Packer [email or web address] <ELECTRONICALLY SIGNED> By: Mason Packer MD, [facility] 03/01/21699 11 11 Mason Packer MD, [facility] /EPI
--- NOTE | 2021-03-01 07:24 | HC ---
[facility] [place] [address] CONSULTATION Name: JOHNATHON THORPE Room #: 515-P ADM IN M.R.#: [id number] Admission: 02/21/21 Attend Phys: Gabriel Mccoy MD Discharge: Date of : 64 Report #: [id number] THIS REPORT FOR: cc: Segundo Hunter Craig DO Deutch,Manny Montez PhD ~ DATE OF SERVICE: 02/26/2021 NEUROBEHAVIORAL STATUS EXAM ATTENDING PHYSICIAN: Gabriel Mccoy MD DIORAMA MODEL MAKER: Manny Drake, PhD CLINICAL PRESENTATION: The patient is a 60-year-old male admitted to the rehabilitation unit at [facility] for comprehensive inpatient rehabilitation program to improve functional mobility, activities of daily living and self-care and mental status secondary to late effect CVA with left-sided weakness. He was initially admitted through the Emergency Room on 02/14/2021 with complaints of tremor and left-sided weakness. A CT of the head was negative. His medical history includes an aneurysm coiling which prevented use of an MRI. He also presented with a severe significant tremor and possible myoclonus along with anxiety and panic disorder. His medical historoy also includes HIV, neurosyphilis and CVA x 3. A significant decline in functional status is also reported. His assessment on admission to the rehab unit is late effect CVA with left hemiparesis, tremor or myoclonus appears to be improving, anxiety and panic disorder, acute exacerbation of COPD, electrolyte abnormalities, history of migraine headache, history of aneurysm coiling in 2016 and a history of HIV virus with neurosyphilis. A complete description of his medical condition and history can be found in his medical record. Neuropsychological consultation was requested to provide assistance in the assessment of cognitive and emotional status and provide recommendations and services. Prior to this most recent admission, he has been living with the assistance of his spouse in their home. The patient has been for 3 years. The patient has 4 half-sisters and 2 stepbrothers. 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 The patient completed a GED. TECHNIQUES UTILIZED: Clinical interview, review of medical records, staff consultation and behavioral observation, mini mental status exam 2 brief version and family interview -- spouse. [address] [address] CONSULTATION Name: JOHNATHON THORPE Room #: 515-P [facility] IN .R.#: [id number] Admission: 02/21/21 Attend Phys: Gabriel Mccoy MD Discharge: Date of : 64 Report #: [id number] EXAMINATION FINDINGS: The patient was alert and cooperative during the assessment. However, he presents with a severe tremor with bilateral shakiness in both arms and hands. He has a history of methamphetamine abuse that was discontinued about 4 years ago. Cannabis abuse is also reported, he has been sober for 1 year. Assistance is reported as having been needed for bathing, dressing and grooming. His spouse was also paying bills and managing his medication. Additional symptoms have included what appears to be periodic limb movement disorder and visual hallucinations. Sleep disturbance has been a problem for several years. Difficulty with smell and taste along with memory and word finding deficits are reported. They have been for 3 years. The deficits in functioning are reported to have a 3-year duration. His performance on the MMSE 2 brief version was extremely low with a raw score of 8/16. The patient was agitated and restless during the assessment. He was 3/3 for initial registration, but required repetition. Orientation to time was 2/5. Orientation to place was 1/5. He was 2/3 for immediate recall of 3 items after brief time delay and distraction. However, multiple repetition was necessary for initial registration. The level of agitation and anxiety interfered with a more thorough neuropsychological evaluation. Prominent symptoms are agitation, anxiety and self-reported visual hallucinations. He is described to have had a sleep disorder for several years that sounds like a periodic limb movement disorder. History of poly substance abuse and current use of medications interfere with clarity regarding assessment of mood and behavior along with cognitive functioning. Deficits in memory and word finding are reported by his spouse. Currently, primary symptoms of agitation, decreased tolerance for frustration and emotional lability are likely to interfere with cognitive functioning and functional independence. DIAGNOSTIC IMPRESSION: Major neurocognitive disorder (dementia), multiple etiology including HIV dementia (neurosyphilis reported), cerebrovascular disease and chronic obstructive pulmonary disease -- with behavior disorder including emotional lability, irritability and agitatin, extent to be determined, likely in the moderate range Generalized anxiety disorder. Unspecified depressive disorder. 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 Polysubstance abuse history. RECOMMENDATIONS: Consider medication for pseudobulbar affect, e.g. Nuedexta. Reduce as appropriate medication with addictive features including nicotine. Consider psychiatric hospitalization on the behavioral unit for stabilization of medications affectding mood and behavior. The patient may benefit from behavioral strategies to assist in the management of anxiety that include relaxation techniques along with reassurance and support. He will continue to require assistance in activities of daily living in order to maintain safety. Distraction and redirection of attention for increasing agitation. A followup neuropsych evaluation may be of benefit to clarify cognitive status upon stabilization of his mood/behavioral symptoms. Thank you very much for allowing me to provide the consultation on this patient. <ELECTRONICALLY SIGNED> By: Manny Drake, PhD 03/01/21 0724 1839 2157 Manny Drake, PhD /nt
[2021-03-01 07:48] VITALS: BP 132/74
--- NOTE | 2021-03-01 09:08 | PATH ---
[facility] [address] [place] [address] PATHOLOGY RPT PROCEDURE Name: JOHNATHON RAI Room #: 515-P [facility] IN M.R.#: [id number] Admission: 02/21/21 Date of : 64 Discharge: Report #: [id number] Path Case #: [id number] [facility] Accession Number: [id number] . 01 Material submitted: . PART A: gastrointestinal site - BIOPSY ANTRUM PART B: esophagus - BIOPSY DISTAL ESOPHAGUS. Modifiers: distal PART C: esophagus - BIOPSY MID ESOPHAGUS . Modifiers: mid . 01 Clinical history: . DYSPHAGIA . 02 Diagnosis: A. Gastric mucosa, antrum, rule out H. pylori, endoscopic biopsy: - Mild reactive gastropathy. - Negative for intestinal metaplasia or atrophy. - Negative for Helicobacter pylori (properly controlled immunohistochemical stain performed). . B. Gastric cardia-type mucosa, distal esophagus, rule out eosinophilic esophagitis, endoscopic biopsy: - Mild chronic inflammation. - No squamous mucosa present for evaluation. - No increase in intraepithelial eosinophils within the biopsy tissue examined. . C. Squamous mucosa, mid esophagus, rule out eosinophilic esophagitis, endoscopic biopsy: - Mild active esophagitis. - No increase in intraepithelial eosinophils within the biopsy tissue examined. (IUV:pit 02/28/2021) QTP 02/28/2021 1459 Local . 02 Electronically signed: . Aretha Valdivia MD, Pathologist NPI- [id number] . 01 Gross description: . A. Received in formalin labeled "Johnathon Rai, biopsy antrum rule H. pylori" is a fragment of segal-brown soft tissue measuring 0.7 x 0.3 x 0.3 cm. The specimen is submitted entirely in A1. . B. Received in formalin labeled "Johnathon Rai biopsy distal esophagus rule out eosinophilic esophagitis" are 2 fragments of segal-brown soft tissue measuring 0.3 x 0.3 x 0.3 cm and 0.4 x 0.3 x 0.3 cm. The specimen is submitted entirely in B1. [address] [address] PATHOLOGY RPT PROCEDURE Name: JOHNATHON RAI Room #: 515-P [facility] IN M.R.#: [id number] Admission: 02/21/21 Date of : 64 Discharge: Report #: [id number] Path Case #: [id number] . C. Received in formalin labeled "Johnathon Rai biopsy mid esophagus rule out eosinophilic esophagitis "are 3 fragments of segal-brown soft tissue measuring in aggregate 0.9 x 0.3 x 0.2 cm. The specimen is submitted entirely in C1.([facility]; 02/26/2021) GZA/GZA 02/28/2021 1455 Local . 02 Pathologist provided ICD-10: K31.9, K20.90 . 02 CPT . 925711, 125176, 857158, Q11690 Specimen Comment: A courtesy copy of this report has been sent to [phone], [phone] Specimen Comment: [phone], Specimen Comment: Report sent to , / Specimen Comment: A duplicate report has been generated due to demographic updates. Performed at: [address], [place] [id number] MD Steffen Simental MD Phone: [phone] Performed at: [address] [id number] MD Aretha Valdivia MD Phone: [phone]
[2021-03-01] MEDS ORDERED: VENTOLIN HFA 1818 GM INH (12:24)
--- NOTE | 2021-03-01 12:24 | NUR ---
vendor form on chart.
--- NOTE | 2021-03-01 14:29 | NUR ---
ASSUMED CARE AT 0700 TODAY. HE HAS WORKED WELL WITH THERAPIES. HE IS REQUIRING ATTENTION FROM STAFF. HE IS COOPERATIVE WITH TAKING HIS MEDICATIONS. HE HAS ASKED FOR MEDICATIONS "TO CALM ME DOWN". HE WAS GIVEN THE MEDICATIONS ORDERED, AND REPORTED THEY ARE "WORKING WELL FOR ME". HE IS UPSET THAT HE CANNOT HAVE COFFEE WHEN HE REQUESTS IT. THE KITCHEN WAS NOTIFIED AND A REQUEST SENT TO SENT UP SOME DECAFF COFFEE FOR HIM.HE HAS HAD CREAM (DECLAFENAC) APPLIED TO HIS FEET BILATERALLY. HE HAS A RFA IV, NS LOCK. HE RECEIVES SYSTATIN SWISH/SWALLOW ORDERED. WILL CONTINUE TO MONITOR.
[2021-03-01 19:33] VITALS: BP 128/73
--- NOTE | 2021-03-02 00:53 | NUR ---
PT ALERT AND ORIENTED X 4. 02 ON AT 2L PER NC. NON-PRODUCTIVE COUGH. TESSALON PERLES GIVEN ORDERED. PT TAKES MEDS IN APPLESAUCE WITHOUT DIFFICULTY. PT WANTING COFFEE DURING THE NIGHT. BECAME VERY AGITATED WHEN HE WAS INFORMED THAT HE WAS ONLY SUPPOSED TO HAVE COFFEE WITH MEALS. CALLED RESIDENT CARE COORDINATOR NAMES. YELLING AT RESIDENT CARE COORDINATOR TO STAY OUT OF HIS ROOM. THIS NURSE TALKED TO PT FOR GOOD AMT OF TIME TO TRY AND CALM HIM DOWN. PT REQUESTED TO SPEAK TO CERTIFIED PROFESSIONAL CODER. CORETTA VELEZCRITICAL CARE PHYSICIAN NOTIFIED. SEROQUEL GIVEN AT 2343 PER PT REQUEST FOR ANXIETY. DID GIVE PT SOME DECAF COFFEE WHICH SETTLED HIM DOWN FOR A LITTLE WHILE. PT SLEEPING AT SHORT INTERVALS. STANDS AT SIDE OF BED WITH ASSIST X 1 TO USE URINAL. VOIDING ADEQUATE AMTS CLEAR YELLOW URINE. WILL CONTINUE TO MONITOR.
[2021-03-02 08:10] VITALS: BP 132/69
--- NOTE | 2021-03-02 09:35 | NUR ---
ASSUMED CARE AT 0700. PATIENT IS ALERT AND ORIENTED X4. PATIENT IS VERY ANXIOUS. PATIENT C/O TREMORS WHEN VERY ANXIOUS. LUNGS ARE CLEAR AND DEMINISHED WITH AN OCCASIONAL COUGH. ABD IS SOFT WITH BSX4. PATIENT IS UP WITH ASSIST OF 1 STAFF AND GAIT BELT AND WALKER TO THE BATHROOM. PATIENT IS VOIDING DALTON COLORED URINE PER URINAL. PATIENT CONTINUES ON ABT'S. NO ADVERSE AFFECTS NOTED. FALL AND SAFETY PROTOCOLS IN PLACE. DENIES PAIN AT THIS TIME. CONTINUES TO PROGRESS SLOWLY TOWARDS D/C GOALS. WILL CONTINUE TO MONITER.
--- NOTE | 2021-03-02 12:24 | NUR ---
Nutrition followup: pt eating 75-100% of meals on mechanically altered chopped diet. ST working on upgrade trials during visit. No new weight since 02/21. Noted pt remains on marinol, Left message for LONG CHAIN BEAMER recommending D/C unless there is another reason for the med besides appetite. Plan D/C 03/04. Low risk.
--- NOTE | 2021-03-02 13:52 | NUR ---
cm team spoke with sherice with [facility], they have accepted and will see him on sunday. [facility] (pt, ot, st, nursing and sw). provider plus will bring fww day of dc.
[2021-03-02 13:53] VITALS: BP 132/69
[2021-03-02 19:24] VITALS: BP 130/77
--- NOTE | 2021-03-03 04:17 | NUR ---
Assumed pt care at 1900. A/OX4,VSS,up with AX1 RW/GB.Continent of B&B.Pt took all HS meds w/o problems in applesauce and went to sleep but awakened by coughing. Tessalon betty given as well as PRN Seroquel for anxiety at 0030/fresh cup of coffee per request provided. Pt was still awake an hr later c/o tickling sensation in throat and wanted cough drops ordered,as well as cough syrup. Jaquelin Moncada notified and new orders implemented,pt not coughing when orders written and had actually fallen asleep;meds not given yet.Pt been resting since w/o any distress,oxygen in place at 3L/NC.Fall precautions in place,calls approp.Will continue to monitor pt.
[2021-03-03 08:00] VITALS: BP 141/83
--- NOTE | 2021-03-03 13:49 | NUR ---
alyx tried to talk with judy about dcp for tomorrow. alyx passed on to spouse alex that [facility] will call them to set up visit and provider plus will bring fww prior to dc tomorrow. unable to talk with judy rt he his walking with therapy outside the room.
--- NOTE | 2021-03-03 15:06 | NUR ---
care assumed at 0700, pt alert and oriented x4, denies chest pain, nausea and vomitting. pt continue to be on 3l of oxygen, sob with exertion. meds given for anxiety. pt up to bathroom with a walker. fall p[recautions in place. will continue to monitor
[2021-03-03 19:27] VITALS: BP 128/73
--- NOTE | 2021-03-04 01:43 | NUR ---
ASSESSMENT COMPLETED. PT WITH ALOT OF ANXIETY. GOOD APPETITE, ASKING FOR DIFFENET SNACKS, VOIDING WELL PER URINAL. TOOK MEDS WELL IN APPLESAUCE. VSS. DENIES PAIN. OCCASIONAL COUGH. ON / PER BASELINE. NO SOA NOTED. LOOKING FORWARD TO D/C TOMORROW.
[2021-03-04 08:38] VITALS: BP 131/70
[2021-03-04 08:39] VITALS: BP 131/70
[2021-03-04] MEDS ORDERED: LASIX 40 MG TAB40 M2 PO (09:51)
[2021-03-04] MEDS ORDERED: ZANAFLEX4 MG PO (09:51)
[2021-03-04] MEDS ORDERED: PROTONIX40 M2 PO (09:51)
[2021-03-04] MEDS ORDERED: HOME MEDICATION INH ×2 (09:51)
[2021-03-04] MEDS ORDERED: FOLIC ACID1 MG PO (09:51)
[2021-03-04] MEDS ORDERED: SEROQUEL 25 MG25 MG PO (09:51)
[2021-03-04] MEDS ORDERED: HOME MEDICATION PO (09:51)
[2021-03-04] MEDS ORDERED: SEROQUEL 50 MG50 MG PO (09:51)
[2021-03-04] MEDS ORDERED: TRELEGY ELLIPT1 EAC1 INH ×2 (09:53→10:28)
[2021-03-04] MEDS ORDERED: VENTOLIN HFA 1818 GM INH ×2 (09:53→10:28)
[2021-03-04] MEDS ORDERED: GENVOYA TABLET1 EACH PO ×2 (09:55→10:28)
[2021-03-04] MEDS ORDERED: NICOTINE TRANSD21 M1 TRANSDERM (10:28)
[2021-03-04] MEDS ORDERED: WELCHOL 625 MG625 M1 PO (10:28)
[2021-03-04] MEDS ORDERED: LIPITOR 40 MG T40 M1 PO (10:28)
[2021-03-04] MEDS ORDERED: TOPROL XL25 MG PO (10:28)
[2021-03-04] MEDS ORDERED: PREGABALIN25 MG PO (10:34)
[2021-03-04] MEDS ORDERED: CLONAZEPAM 1 MG1 M1 PO (10:35)
--- NOTE | 2021-03-04 11:52 | NUR ---
PT ALERT AND ORIENTED TIMES FOUR WITH PERIODS OF CONFUSION. VSS 02 2L. PT DENIES PAIN/SOA AT THIS TIME. PT TOLERATES MEDS AND BREAKFAST. PT UP WALKING IN ROOM WITH STEADY GAIT. PLANS TO DISCHARGE TODAY.
--- NOTE | 2021-03-04 16:57 | H ---
[facility] [place] [address] [place] [address] HISTORY AND PHYSICAL Name: JOHNATHON THORPE Room #: 515-P DIS IN M.R.#: [id number] Admission: 02/21/21 Attend Phys: Gabriel Mccoy MD Discharge: 03/04/21 Date of : 64 Report #: [id number] THIS REPORT FOR: cc: Segundo Hunter,Segundo Sprague,Gabriel Zabala MD ~ DATE OF SERVICE: 02/21/2021 HISTORY OF PRESENT ILLNESS: The patient is a 60-year-old male who was originally admitted to [facility] on 02/14/2021 with complaints of tremor and left-sided weakness. CT of the head was negative for any acute process. Chest x-ray was negative, but he was treated for an acute exacerbation of COPD with IV steroids and IV antibiotics. He was noted to have late effect cerebrovascular accident with left-sided weakness with significant tremor or myoclonus along with anxiety and panic disorder. Psychiatry has been involved. He is noted to have a significant decline in his functional level. Neurology noted fluctuating weakness in the left side and doubted due to seizures or strokes. He is noted to have recurrent tremor and shaking thought to most likely be anxiety related. He has tingling, numbness in his hands and feet, thought possibly due to neuropathy. He also has a history of severe headaches, possibly migraine related. While on the acute care side, he was given a migraine cocktail and Solu-Medrol with Depakote. He was placed on primidone. He was given Neurontin, amitriptyline. Psychiatry is assisting regarding his anxiety as well. He has a history of 3 prior CVA with brain aneurysm clipping, but denies any residual weakness from his prior strokes. He was noted to have significant functional decline and has been admitted for acute in-hospital inpatient rehabilitation. PAST MEDICAL HISTORY: Includes a history of aneurysmal coiling x 2 in 2016. The patient with HIV and neurosyphilis. He had a history of cerebrovascular accident x 3, 10/2020 after gallbladder surgery and reports since the stroke, he has had left-sided weakness and nightmares. MEDICATIONS: Please see the full medication listing. ALLERGIES: HE HAS MULTIPLE ALLERGIES, PLEASE SEE THE LISTING. SOCIAL HISTORY: Noted to be living in a house with his spouse. Amdrvom-ak-kui, bpcskt-jk-jri live upstairs and they share the basement. Flight of steps down. supervises him on the stairs and assist with bathing/dressing if needed. He is otherwise independent with ADLs. He does not drive. He wears 3 liters nasal cannula O2. [facility] [address] [place] [address] HISTORY AND PHYSICAL Name: ILAJOHNATHON Room #: 515-P [facility] IN M.R.#: [id number] Admission: 02/21/21 Attend Phys: Gabriel Mccoy MD Discharge: 03/04/21 Date of : 64 Report #: [id number] REVIEW OF SYSTEMS: Did not offer any current complaints of chest pain, shortness of breath or abdominal discomfort. He notes he gets anxious at times. He has numbness and tingling of his fingers. HABITS: Noted to have a smoking history of 43 years. Does follow with a e business consultant, Dr. Narendra Ruiz and was on 3 liters nasal cannula O2 premorbidly. PHYSICAL EXAMINATION: GENERAL: The patient was seen on 02/21/2021. He was in no distress. HEENT: Appeared to be benign. NEUROLOGIC: Facies were symmetric. He tends to be anxious at times and as he talks he can get a little more anxious and then will calm down. I did not note any actual jerking or myoclonic movements. He is able to verbalize without obvious word finding deficits. CHEST: Sounded clear to auscultation. CARDIOVASCULAR: Regular rate and rhythm. ABDOMEN: Bowel sounds positive, nontender. GENITOURINARY AND RECTAL: Deferred. EXTREMITIES: He has functional range of motion of the right upper and right lower extremity. Left upper extremity was weak. I would grade it at a 3+/5 with edge brusher weak. Left lower extremity is probably a grade 3- to 3/5. It was somewhat difficult to actually test. No focal calf swelling. He appears to have a left foot drop. He is needing contact assistance for basic transfers. Min assist sit to stand. He has been using a front-wheeled walker. There is a note of some steppage gait with that left lower extremity. ASSESSMENT: A 60-year-old male admitted on 02/21/2021 to [facility], acute inpatient rehabilitation olguin. This is the history and physical, 02/21/2021: 1. 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 2. Tremor or myoclonus, appears to be improving. 3. Anxiety and panic disorder. 4. Acute exacerbation of chronic obstructive pulmonary disease. 5. Electrolyte abnormalities. 6. History of migraine headaches. 7. History of aneurysm coiling in 2016. 8. History of human immunodeficiency virus and neurosyphilis. PLAN: The patient has been admitted for acute in-hospital inpatient rehabilitation. Please see the patient's previous and current functional status. As far as risk of complications, he has multiple medical comorbidities as noted above. Initial plan of care involves the interdisciplinary acute inpatient rehabilitation program. Prognosis is reasonably good with estimated length of stay probably at least 10-14 days. Potential barriers would include [facility] [address] [place] [address] HISTORY AND PHYSICAL Name: JOHNATHON THORPE Room #: 515-P DIS IN M.R.#: [id number] Admission: 02/21/21 Attend Phys: Gabriel Mccoy MD Discharge: 03/04/21 Date of : 64 Report #: [id number] his multiple medical comorbidities and decreased functional status. The goal is for the patient to improve overall functional independence with mobility, ADLs, cognition, communication, so that he can return back to the home setting. We will have the multiple consultants continue to follow with Psychiatry to be involved as well as Internal Medicine and Neurology is indicated. Of note, Psychiatry recommends using conversation distraction over medications when possible in managing his anxiety. <ELECTRONICALLY SIGNED> By: Gabriel Mccoy MD 03/04/21 1657 0941 1028 Gabriel Mccoy MD /nt
--- NOTE | 2021-03-04 16:58 | PLAN ---
[facility] [place] [address] REHAB UNIT PLAN OF CARE Name: JOHNATHON THORPE Room #: 515-P DIS IN M.R.#: [id number] Admission: 02/21/21 Attend Phys: Gabriel Mccoy MD Discharge: 03/04/21 Date of : 64 Report #: [id number] THIS REPORT FOR: cc: Segundo Hunter,Segundo Sprague,Gabriel Zabala MD ~ DATE OF SERVICE: 02/22/2021 PROGRESS NOTE/OVERALL PLAN OF CARE SUBJECTIVE: The patient was seen today. He has some anxiety, but if the subject is changed, he will calm down. He is cooperative and has been motivated in therapies. Temperature 36.3, pulse 72, respirations 24, blood pressure 120/63. He has some left sided weakness on exam similar to yesterday. Transfers are min assist with gait 100 feet front-wheeled walker. He tends to have a steppage component, some exaggeration with wide base of support, supine to sit with standby assistance. He is min assist with bed mobility. Upper body dressing is standby assistance. Lower body dressing is max assist. He does have some tremor that is noted, some ataxic type movements of the upper extremities. He is on mechanical soft, thin liquid diet. ASSESSMENT: 1. 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 2. Significant tremor. 3. Significant anxiety. Apappreciate Psychiatry involvement. 4. Acute exacerbation of chronic obstructive pulmonary disease with possible pneumonia. 5. Hypokalemia, resolved. 6. Migraine. 7. History of aneurysm coiling 2016. 8. Human immunodeficiency virus with neurosyphilis. 9. Thrush. PLAN: The overall plan of care is based on the preadmission screen and information garnered from therapy assessments. 1. Estimated length of stay is probably at least 10-14 days. 2. Medical prognosis is reasonably good. 3. Anticipated interventions include the interdisciplinary acute inpatient rehabilitation program. 4. Anticipated functional outcomes would be for the patient to become ideally maximally independent with basic transfers, mobility and cognitive issues so that he can return back to the home setting. 5. Discharge destination would be back home with family. issues. He has been living in the basement and arrangements may need to be made for him to say in the ground floor. 6. Expected therapy by discipline includes PT, OT and speech 1 hour per day each five days a week throughout the duration of the acute inpatient rehabilitation stay. [address] [address] REHAB UNIT PLAN OF CARE Name: JOHNATHON THORPE Room #: 515-P [facility] IN .R.#: [id number] Admission: 02/21/21 Attend Phys: Gabriel Mccoy MD Discharge: 03/04/21 Date of : 64 Report #: [id number] The patient's prognosis for significant practical improvement within a reasonable period of time appears good. Given the patient's complex medical condition and risk of further medical complication, rehabilitation services could not be safely provided at a lower level of care such as a jail facility. <ELECTRONICALLY SIGNED> By: Gabriel Mccoy MD 03/04/21 1658 1455 0119 Gabriel Mccoy MD /nt
--- NOTE | 2021-03-04 16:59 | PLAN ---
[facility] [place] [address] REHAB UNIT PLAN OF CARE Name: JOHNATHON THORPE Room #: 515-P [facility] IN M.R.#: [id number] Admission: 02/21/21 Attend Phys: Gabriel Mccoy MD Discharge: 03/04/21 Date of : 64 Report #: [id number] THIS REPORT FOR: cc: Segundo Hunter,Segundo Sprague,Gabriel Zabala MD ~ DATE OF SERVICE: 02/24/2021 OVERALL PLAN OF CARE SUBJECTIVE: The overall plan of care is based on the preadmission screen and information garnered from therapy assessments. The patient has been transferring with contact guard assistance. Gait is mod assist 60 feet with a front-wheeled walker. In occupational therapy, upper body dressing is min assist with lower body dressing, moderate assistance. He is also being seen in speech therapy with severe cognitive deficits noted as well as severe memory deficits. As far as his swallowing, he is on a mechanical soft, thin liquid diet. ASSESSMENT: 1. Late effect cerebrovascular accident with left sided weakness. 2. Significant tremor. 3. Anxiety disorder. 4. Acute exacerbation of chronic obstructive pulmonary disease with possible pneumonia. 5. Hypokalemia, resolved. 6. History of migraine headaches. 7. History of aneurysmal coiling in 2016. 8. Human immunodeficiency virus. 9. History of neurosyphilis. 10. History of thrush. PLAN: 1. Estimated length of stay is probably 10-14 days, potentially longer if warranted. 2. Medical prognosis is reasonably good. 3. Anticipated interventions include the interdisciplinary acute inpatient rehabilitation program. 4. Anticipated functional outcomes would be for the patient to improve as far as transfers, mobility, ADLs and communication, cognition, so that he can return back to the home setting. He will hopefully improve further as far as gait and independence. 5. Discharge destination would be back home with his family. He has been living in the basement and he need to make arrangements for him to live on the ground floor. [address] [address] REHAB UNIT PLAN OF CARE Name: ILAJOHNATHON Room #: 515-P [facility] IN .R.#: [id number] Admission: 02/21/21 Attend Phys: Gabriel Mccoy MD Discharge: 03/04/21 Date of : 64 Report #: [id number] 6. Expected therapy by discipline includes PT, OT and speech 1 hour per day each five days a week throughout the duration of the acute inpatient rehabilitation stay. ADDENDUM: The patient's prognosis for significant practical improvement within a reasonable period of time appears good. Given the patient's complex medical condition and risk of further complication, rehabilitation services could not be safely provided at a lower level of care such as a alf facility. <ELECTRONICALLY SIGNED> By: Gabriel Mccoy MD 03/04/21 1659 0808 1819 Gabriel Mccoy MD /ARLENE
== END 2021-03-04 11:20 | disposition home health service (06) | DRG 56 ==
PROVIDERS: Hospitalist; Nurse Practitioner; Nurse Practitioner Family; ADMIT Physical Medicine & Rehabilitation; ATTEND Physical Medicine & Rehabilitation
PROC: 0DB28ZX Excision of Middle Esophagus, Via Natural or Artificial Opening Endoscopic, Diagnostic (ICD-10-PCS; principal; 2021-02-25)
PROC: 0D758ZZ Dilation of Esophagus, Via Natural or Artificial Opening Endoscopic (ICD-10-PCS; principal; 2021-02-25)
PROC: 0DB38ZX Excision of Lower Esophagus, Via Natural or Artificial Opening Endoscopic, Diagnostic (ICD-10-PCS; principal; 2021-02-25)
PROC: 0DB78ZX Excision of Stomach, Pylorus, Via Natural or Artificial Opening Endoscopic, Diagnostic (ICD-10-PCS; principal; 2021-02-25)
DX: I69.354 Hemiplegia and hemiparesis following cerebral infarction affecting left non-dominant side (principal); I63.9 Cerebral infarction, unspecified; J18.9 Pneumonia, unspecified organism; J44.1 Chronic obstructive pulmonary disease with (acute) exacerbation; J44.0 Chronic obstructive pulmonary disease with (acute) lower respiratory infection; F41.0 Panic disorder [episodic paroxysmal anxiety]; E87.6 Hypokalemia; G43.909 Migraine, unspecified, not intractable, without status migrainosus; F41.1 Generalized anxiety disorder; F32.9 Major depressive disorder, single episode, unspecified; F01.50 Vascular dementia, unspecified severity, without behavioral disturbance, psychotic disturbance, mood disturbance, and anxiety; F48.2 Pseudobulbar affect; R25.1 Tremor, unspecified; D72.829 Elevated white blood cell count, unspecified; E78.5 Hyperlipidemia, unspecified; R13.10 Dysphagia, unspecified; K22.2 Esophageal obstruction; K21.00 Gastro-esophageal reflux disease with esophagitis, without bleeding; K44.9 Diaphragmatic hernia without obstruction or gangrene; K29.70 Gastritis, unspecified, without bleeding; B37.9 Candidiasis, unspecified; Z21 Asymptomatic human immunodeficiency virus [HIV] infection status; Z23 Encounter for immunization; Z87.11 Personal history of peptic ulcer disease
CPT/HCPCS: 10112; 62110; 62900

== ENCOUNTER → 2021-05-06 | Outpatient (CLI) | payer OTHER ==
[~2021-05-06] MED LIST changes: +CLONAZEPAM 1 MG1 M1 PO; +FOLIC ACID1 MG PO; +HOME MEDICATION INH; +HOME MEDICATION PO; +LASIX 40 MG TAB40 M2 PO; +NICOTINE TRANSD21 M1 TRANSDERM; +PROTONIX40 M2 PO; +SEROQUEL 25 MG25 MG PO; +SEROQUEL 50 MG50 MG PO; +TRELEGY ELLIPT1 EAC1 INH; +WELCHOL 625 MG625 M1 PO; +ZANAFLEX4 MG PO
== END ==
LOC: SJCVC 11:15
PROVIDERS: ATTEND Internal Medicine
DX: I63.9 Cerebral infarction, unspecified (principal); E78.5 Hyperlipidemia, unspecified; I10 Essential (primary) hypertension; M79.605 Pain in left leg; A52.3 Neurosyphilis, unspecified; I67.1 Cerebral aneurysm, nonruptured; G43.709 Chronic migraine without aura, not intractable, without status migrainosus; J43.9 Emphysema, unspecified; F41.9 Anxiety disorder, unspecified; F32.9 Major depressive disorder, single episode, unspecified; F17.210 Nicotine dependence, cigarettes, uncomplicated; F12.90 Cannabis use, unspecified, uncomplicated; Z21 Asymptomatic human immunodeficiency virus [HIV] infection status; Z79.899 Other long term (current) drug therapy; Z88.1 Allergy status to other antibiotic agents; Z88.6 Allergy status to analgesic agent; Z88.5 Allergy status to narcotic agent; Z88.0 Allergy status to penicillin; Z88.8 Allergy status to other drugs, medicaments and biological substances

== ENCOUNTER → 2021-05-16 | Outpatient (CLI) | payer OTHER | LOC: SJCVCIMAG 05-12 12:19 | PROVIDERS: ATTEND Internal Medicine | DX: M79.661 Pain in right lower leg (principal); M79.662 Pain in left lower leg ==

== ENCOUNTER → 2021-06-17 | Outpatient (CLI) | payer OTHER | LOC: CAT 10:20 | PROVIDERS: ATTEND Internal Medicine | DX: J43.2 Centrilobular emphysema (principal); J96.11 Chronic respiratory failure with hypoxia; J98.11 Atelectasis; R91.8 Other nonspecific abnormal finding of lung field ==

== ENCOUNTER 2021-07-11 14:49 | Inpatient (IN) | payer OTHER ==
[~2021-07-11] VITALS: Ht 180.3 cm; Wt 86.2 kg
[2021-07-11 14:51] VITALS: BP 120/70
--- NOTE | 2021-07-11 15:05 | EKG ---
[address] [place] [address] ELECTROCARDIOGRAM REPORT Name: ILAJOHNATHON Room #: [facility].#: [id number] Admission: Attend Phys: Discharge: Date of : 64 Report #: [id number] [facility] ED Test Date: 2021-07-11 Test Time: 14:56:17 Pat Name: JOHNATHON THORPE Department: Room: Gender: M [employer] Associate: OMI : 1960 Requested By: Mendez Jenkins Order Number: [id number] MD: Mason Packer Measurements Intervals [place] Rate: 78 P: 47 IN: 112 QRS: 6 QRSD: 96 T: 29 QT: 367 QTc: 419 Interpretive Statements Sinus rhythm Borderline short IN interval Borderline T wave abnormalities Compared to ECG 02/27/2021 18:12:30 Sinus tachycardia no longer present T-wave abnormality still present Electronically Signed On 07-11-2021 15:05:06 CDT by Mason Packer [email or web address] <ELECTRONICALLY SIGNED> By: Mason Packer MD, [facility] 07/11/21 1505 1456 1456 Mason Packer MD, FACJozef /EPI
[2021-07-11 15:12] LABS: HEMOGLOBIN 10.6 gm/dL (14.0-18.0)
[2021-07-11 15:14] LABS: HEMATOCRIT 34.3 % (42.0-52.0); MCH 25.4 pg (26.0-34.0); MCHC 30.9 g/dL (28.0-37.0); MCV 82.2 fL (80.0-100.0); PLATELET COUNT 413 thou/uL (150-400); RBC 4.17 mil/uL (4.50-6.00); WBC 22.3 thou/uL (4.0-11.0)
[2021-07-11 15:26] LABS: ANION GAP 8 mmol/L (7-16); BUN 22 mg/dL (7-18); CHLORIDE 100 mmol/L (98-107); CO2 27 mmol/L (21-32); CREATININE 1.2 mg/dL (0.7-1.3); GLUCOSE 104 mg/dL (74-106); SODIUM 135 mmol/L (136-145)
[2021-07-11 15:34] LABS: TROPONIN-I <0.06 ng/mL (<0.06)
[2021-07-11 15:44] LABS: ABSOLUTE NEUTROPHILS 16.3 thou/uL (1.4-8.2); ANISOCYTOSIS 1+; METAMYELOCYTES 1 %
[2021-07-11 16:17] LABS: URINE BILIRUBIN NEGATIVE (Negative); URINE BLOOD NEGATIVE (Negative); URINE CLARITY CLEAR; URINE COLOR YELLOW; URINE GLUCOSE-RANDOM* NEGATIVE (Negative); URINE KETONES NEGATIVE (Negative); URINE LEUKOCYTES-REFLEX NEGATIVE (Negative); URINE NITRITE-REFLEX NEGATIVE (Negative); URINE PROTEIN (DIPSTICK) NEGATIVE (Negative); URINE SPECIFIC GRAVITY <= 1.005 (1.005-1.035); URINE UROBILINOGEN 0.2 E.U./dl (0.2-1.0)
[2021-07-11] MEDS ORDERED: NEURONTIN 300M300 M2 PO (17:22)
--- NOTE | 2021-07-11 17:44 | NUR ---
JULIANNA LINDSEY (SPOUSE) [phone]
[2021-07-12 07:13] VITALS: BP 136/72
[2021-07-12 07:45] VITALS: BP 148/82
--- NOTE | 2021-07-12 08:08 | NUR ---
PT ORIENTED TO ROOM AND UNIT, BED LOW AND LOCKED, SIDE RAILS UPX3, CALL LIGHT IN REACH, TELE APPLIED. WILL CONTINUE TO ASSESS.
[2021-07-12 08:15] VITALS: BP 142/81
[2021-07-12 12:00] VITALS: BP 145/95
--- NOTE | 2021-07-12 12:35 | 2DMMODE ---
[facility] [place] [address] 2 D/M-MODE ECHOCARDIOGRAM Name: JOHNATHON THORPE Room #: 212-P ADM IN M.R.#: [id number] Admission: 07/12/21 Attend Phys: Dillon Braclay MD Discharge: Date of : 64 Report #: [id number] THIS REPORT FOR: cc: Segundo Hunter Craig DO Lundgren, Craig H. MD [facility] ~ APPROVED REPORT Study performed: 07/12/2021 10:51:21 EXAM: Comprehensive 2D, Doppler, and color-flow Echocardiogram Patient Location: Bedside Room #: 212 Status: routine BSA: 2.06 HR: 78 bpm BP: 148/82 mmHg Rhythm: NSR Other Information Study Quality: Adequate/TD parasternal window. Technically limited study due to patient sitting up in bed and lung disease.. Indications Chest Pain COPD 2D Dimensions RVDd: 32.49 mm IVSd: 13.46 (7-11mm) LVDd: 47.16 mm PWd: 11.55 (7-11mm) LVDs: 40.45 (25-40mm) Left Atrium: 39.45 (27-40mm) Aortic Root: 34.09 mm Volumes Left Atrial Volume (Systole) Single Plane 4CH: 65.10 mL Single Plane 2CH: 65.51 mL LA ESV Index: 35.00 mL/m2 Aortic Valve AoV Peak Oziel.: 1.40 m/s [facility] [address] [address] 2 D/M-MODE ECHOCARDIOGRAM Name: JOHNATHON THORPE Room #: 212-P ADM IN .R.#: [id number] Admission: 07/12/21 Attend Phys: Vicenta Roldan Discharge: Date of : 64 Report #: [id number] AO Peak Gr.: 7.80 mmHg LVOT Max P.70 mmHg LVOT Max V: 1.08 m/s Mitral Valve E/A Ratio: 0.8 MV Decel. Time: 295.58 ms MV E Max Oziel.: 0.57 m/s MV A Oziel.: 0.72 m/s MV PHT: 85.72 ms IVRT: 76.12 ms Pulmonary Valve PV Peak Oziel.: 1.12 m/s PV Peak Gr.: 5.02 mmHg Tricuspid Valve TR Peak Oziel.: 2.70 m/s RAP Estimate: 5.00 mmHg TR Peak Gr.: 29.14 mmHg PA Pressure: 34.00 mmHg Left Ventricle The left ventricle is normal size. There is normal LV segmental wall motion. Mild concentric left ventricular hypertrophy. Left ventricular systolic function is normal. LVEF is 55%. Mild diastolic dysfunction Right Ventricle The right ventricle is normal size. The right ventricular systolic function is normal. Atria The left atrium size is normal. The right atrium size is normal. Aortic Valve Aortic valve is grossly normal in structure. No aortic regurgitation is present. There is no aortic valvular stenosis. Mitral Valve Mild mitral annular calcification. There is no mitral valve regurgitation No evidence of mitral valve stenosis. Tricuspid Valve The tricuspid valve is normal in structure. Trace tricuspid regurgitation. Estimated PAP is 35mmHg. Pulmonic Valve [facility] [address] [place] [address] 2 D/M-MODE ECHOCARDIOGRAM Name: JOHNATHON THORPE Room #: 212-P [facility] IN [facility].#: [id number] Admission: 07/12/21 Attend Phys: Vicenta Roldan Discharge: Date of : 64 Report #: [id number] Pulmonic valve is not well visualized. Great Vessels The aortic root is normal in size. Ascending aorta is not well visualized. IVC is normal in size and collapses <50% with inspiration. Pericardium There is no pericardial effusion. <Conclusion> Left ventricular systolic function is normal. There is normal LV segmental wall motion. LVEF is 55%. Mild diastolic dysfunction Aortic valve is grossly normal in structure. No aortic regurgitation or stenosis. Mild mitral annular calcification. No mitral valve regurgitation Trace tricuspid regurgitation. Estimated pulmonary artery pressure of 35mmHg. There is no pericardial effusion. <ELECTRONICALLY SIGNED> By: Segundo Gudino MD, FACC 07/12/21 1235 1235 1235 Segundo Gudino MD, FACC /INF
[2021-07-12 12:59] LABS: HEMATOCRIT 32.3 % (42.0-52.0); HEMOGLOBIN 9.9 gm/dL (14.0-18.0); MCH 24.9 pg (26.0-34.0); MCHC 30.6 g/dL (28.0-37.0); MCV 81.6 fL (80.0-100.0); RBC 3.96 mil/uL (4.50-6.00); RDW 18.3 % (10.5-14.5); WBC 24.6 thou/uL (4.0-11.0)
[2021-07-12 13:28] LABS: ALBUMIN 3.3 g/dL (3.4-5.0); ANION GAP 6 mmol/L (7-16); BUN 24 mg/dL (7-18); CALCIUM 9.2 mg/dL (8.5-10.1); CHLORIDE 101 mmol/L (98-107); CO2 30 mmol/L (21-32); CREATININE 1.1 mg/dL (0.7-1.3); GLUCOSE 177 mg/dL (74-106); SGOT 10 U/L (15-37); SGPT 27 U/L (30-65); SODIUM 137 mmol/L (136-145); TOTAL BILIRUBIN 0.2 mg/dL (0.2-1.0); TOTAL PROTEIN 6.8 g/dL (6.4-8.2); TROPONIN-I <0.06 ng/mL (<0.06)
[2021-07-12 15:40] VITALS: BP 131/80
--- NOTE | 2021-07-12 17:18 | NUR ---
MRI OF HEAD WAS CANCELLED BY TECH R/T ANEURYSM CLIPS.
[2021-07-12 20:15] VITALS: BP 126/78
[2021-07-13] VITALS (7 sets, daily range): BP systolic 134–155; BP diastolic 80–86
--- NOTE | 2021-07-13 02:09 | NUR ---
ASSUMED CARE OF PT AT 1900, PT IS A/O X4 ON 4L NC. ASSESSMENT COMPLETED NOTED. PT C/O CP MEDICATION GIVEN ORDERED, PT STATES PARTIAL RESOLUTION. PT HAS A STRONG NPC, BREATHING TX ORDERED AND RECIEVED. WILL CONTINUE TO WORK TOWARDS PT'S POC.
[2021-07-13 04:59] LABS: LIPASE 155 U/L (73-393)
[2021-07-13 09:08] LABS: ANA INTERPRETATION Negative (Negative)
--- NOTE | 2021-07-13 12:22 | HC ---
[facility] [place] [address] [place] [address] CONSULTATION Name: JOHNATHON THORPE Room #: 212-P ADM IN M.R.#: [id number] Admission: 07/12/21 Attend Phys: Dillon Barclay MD Discharge: Date of : 64 Report #: [id number] THIS REPORT FOR: cc: Segundo Hunter Craig DO Khosla,Ramón Islas MD ~ HISTORY OF PRESENT ILLNESS: This is a 60-year-old male patient who is an extremely poor historian. To me, he is only complaining of abdominal pains. He says that has been his problem. Record indicate he has complained of the chest pain. There is some question of CVA in this patient. He indicates he was in [facility] as well as [facility]. He was admitted with left-sided weakness. He was there in January and February. He went to 1 hospital and they discharged him and then he went to another hospital. He does not know what imaging was done. He has a prior history of aneurysm that was addressed in [place]. He does not know whether those clips are compatible with MRI or not. He does not know whether he ever had an MRI after that. I have asked for urgent record from [facility]. We still have not received that and I will talk to the nurses again. REVIEW OF SYSTEMS: Positive for prior history of aneurysm. He came to the Emergency room with the chest pain, but to me was complaining of abdominal pain. He just casually mentioned that his weakness is worse than it was before. He does have oxygen at home. He apparently had a cerebellar stroke, peptic ulcer disease, HIV, neurosyphilis COPD, brain aneurysm, hypertension. He has some hardware in the knee and multiple allergies. He had a history of panic attack, splenectomy, smoking, EGD, cholecystectomy. This was his relevant review of system. He also is on some medication for agitation, but I guess he has some psychiatric history also. PAST MEDICAL HISTORY: Positive for pain and multiple other symptoms, which are difficult to explain. FAMILY HISTORY: Noncontributory. SOCIAL HISTORY: He does smoke. PHYSICAL EXAMINATION: The patient's examination was limited because his cooperation was poor, but it looks like he is alert. He is responsive. He can follow commands. Cranial nerve examination was not optimal, but I did not see much focality ____ tell about the visual field. He does have some weakness on the left side. He does not give good effort, is difficult to tell for sure. He says he can feel that side. There is no meningeal sign. Cardiorespiratory examinations appear noncontributory. LABORATORY DATA: His white count is pretty high. His GFR is okay at 69. His [facility] [address] [place] [address] CONSULTATION Name: JOHNATHON THORPE Room #: 212-P [facility] IN M.R.#: [id number] Admission: 07/12/21 Attend Phys: Dillon Barclay MD Discharge: Date of : 64 Report #: [id number] B12 and TSH was unremarkable. CT shows clips. IMPRESSION: I talked to this patient in detail. I told him that we can do some CT angiogram, but I can do an MRI to find out for sure that he had compatible clips. He understands that. I told him the best will be to get the record from [facility]. I will also try to get the record from [facility]. The only other thing we can do here, CT angio until we can confirm that his clips are compatible which will be difficult to do because it was done in [place]. More than 50 minutes of time was spent taking care of this patient today and majority was spent counseling him on above topics as well as coordinating his care and subsequently reviewing his records from [facility] Thank you very much for this referral and if you have any questions, please feel free to contact me. <ELECTRONICALLY SIGNED> By: Ramón Chaves MD 07/13/21 1222 1859 0125 Ramón Chaves MD /yeni
--- NOTE | 2021-07-13 12:57 | NUR ---
Pt dcing home today and hh orders noted. Rag Boiler discussed with pt at bedside and he would like to use [facility] again as he had them in the Spring. Orders faxed to [facility]. Pt's spouse Mack notified of dc today after CT angio. Both in agreement with the plan for home with HH. Pt has dme in place at home and his portable o2 tank is in the room. Spouse will be here btwn 3-4 and take him home.
[2021-07-13 19:04] LABS: BE(vivo) 5.3 mmol/L (-2 to +3); PCO2 51.2 mmHg (35.0-45.0); PO2 73.6 mmHg (80.0-100.0); sO2 94.6 % (92.0-98.0)
--- NOTE | 2021-07-13 19:31 | NUR ---
PT WORKED WITH PT/OT KARTHIK AND WAS UP TO CHAIR. PT HAD CSPIN AND CTA NECK TODAY. NEUROSURGERY WAS CONSULTED.
--- NOTE | 2021-07-13 20:00 | NUR ---
PRIMARY RN CALLED CODE ON PT IN CAT SCAN TODAY. PT DID NOT LOSE PULSE OR NEED ACLS. RR FLOWSHEET COMPLETE. SEE INTERVENTION FOR DETAILS.
--- NOTE | 2021-07-14 01:56 | NUR ---
ASSUMED CARE OF PT AT 1899, ASSESSMENT COMPLETED NOTED. PT REMAINS ON 4LPM NC WITH LABORED BREATHING, RT NOTIFIED FOR BREATHING TREATMENT. AT 2029 PT C/O CP WITH RADIATION TO LEFT ARM AND JAW. MANAGER OF EXHIBITIONS AND COLLECTIONS NOTIFIED WITH ORDERS TO GIVE NITRO TAB X 3 PRN. INITIAL PAIN WAS 8/10 AFTER 1ST NITRO DOSE AT 2039. SECOND DOSE GIVEN AT 2049 CP DECREASED TO 6/10, AT 2101 THIRD DOSES GIVEN PAIN SCORED AT 5/10. CARDIOLOGY CONTACTED WITH UPDATES, ORDERS RECIEVED AND INITIATED. WILL CONTINUE TO MONITOR PT AND WORK TOWARDS PT'S POC.
[2021-07-14 05:22] VITALS: BP 138/87
--- NOTE | 2021-07-14 07:18 | EKG ---
[address] [address] ELECTROCARDIOGRAM REPORT Name: ILAJOHNATHON Room #: 212- ADM IN M.R.#: [id number] Admission: 07/12/21 Attend Phys: Dillon Barclay MD Discharge: Date of : 64 Report #: [id number] [facility] Test Date: 2021-07-13 Test Time: 18:29:31 Pat Name: JOHNATHON THORPE Department: Room: 212 P Gender: M Wool Grader: FSCHWALBE : 1960 Requested By: Dillon Barclay Order Number: [id number] MD: Mason Packer Measurements Intervals [place] Rate: 91 P: 73 OK: 126 QRS: 12 QRSD: 89 T: 59 QT: 348 QTc: 429 Interpretive Statements Sinus rhythm Baseline wander in lead(s) V3 Compared to ECG 07/11/2021 14:56:17 T-wave abnormality no longer present Electronically Signed On 07-14-2021 7:18:12 CDT by Mason Packer [email or web address] <ELECTRONICALLY SIGNED> By: Mason Packer MD, [facility] 07/14/21717 28 28 Mason Packer MD, [facility] /EPI
[2021-07-14 07:54] VITALS: BP 135/75
--- NOTE | 2021-07-14 08:21 | HC ---
[facility] [place] [address] [place] [address] CONSULTATION Name: JOHNATHON THORPE Room #: 212-P ADM IN M.R.#: [id number] Admission: 07/12/21 Attend Phys: Dillon Barclay MD Discharge: Date of : 64 Report #: [id number] THIS REPORT FOR: cc: Segundo Hunter,Segundo Bonilla,Haris Tariq MD ~ cc: Dillon Barclay MD, Narendra Ruiz MD, Segundo Gudino MD [facility], Luis Mcmillan MD, Ramón Chaves MD, Vivien Patel MD, Wojciech Hunter DATE OF SERVICE: 07/13/2021 REASON FOR CONSULTATION: Leukocytosis. HISTORY OF PRESENT ILLNESS: The patient is a 60-year-old male who was admitted and has had a white count of about 22,000 and 25,000 since he has been admitted. The patient has not had any fever, though he feels warm, has had flushing and some abnormal sensations going down his left arm. His weight, he has actually gained 40-50 pounds last year or so. He has abdominal protuberance. He has not had any definite fevers. He does have some bowel that are a little bit abnormal. He says he first feels like plugs, then he has bowels that move, not sure if this is different for him since his gallbladder surgery in the past. He also has chest discomfort, has a lot of physical awareness that it is hard to sort out what is critical and what is new or not. Also, note after leaving the room and looking in Care Everywhere, the patient was prescribed prednisone 10 mg tablets on 07/04/[address] Narendra Ruiz. He was due to a taper 40 mg daily for 4 days, then 30 mg for 3 days, 20 mg for 2 days, then 10 mg. That means the patient probably would have been just on about his 30 mg dose having had been on for almost a week when he was admitted. This may be a likely cause of his leukocytosis or other etiologies may need to be ruled out. The patient denies any blood in his urine or stool, new skin rash, new arm or leg swelling. PAST MEDICAL HISTORY: Notable for HIV, I believe some 30+ years on antiretroviral. Also, there is a question, in the past chart, of paranoid schizophrenia from Care Everywhere, also encephalopathy and polysubstance abuse and COPD, also hypertension in the past. 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 This is by Dr. Antunez at [facility]. Pathology came back as splenic congestion. Also, possible rheumatoid arthritis, GERD, anxiety, depression, memory loss, dysesthesias. FAMILY HISTORY: Brother and father and maternal aunt with cancer. Heart [facility] [address] [place] [address] CONSULTATION Name: RISA THORPEHARLEY Gallardo Room #: 212-P [facility] IN M.R.#: [id number] Admission: 07/12/21 Attend Phys: Dillon Barclay MD Discharge: Date of : 64 Report #: [id number] failure, maternal grandmother. Diabetes, maternal grandmother. Has a brother and a father, maternal aunt, maternal grandmother that have been . SOCIAL HISTORY: Cigarette smoker, I believe it is about quarter pack a day for 30 years. Alcohol in the past, yes. PHYSICAL EXAMINATION: VITAL SIGNS: Height is 5 feet 11, 180.3 cm, weight 190 pounds or 86.2 kilograms. Blood pressure is 140/82, O2 sat 93, respirations 20, pulse 74, temperature 98.1. FACE: Appears to be symmetrical. MOOD: The patient's mood is anxious. LYMPHATICS: No enlarged lymph nodes in the supraclavicular, cervical, axillary region. ABDOMEN: Obese. No definite masses. EXTREMITIES: Perhaps trace edema. SKIN: A few small ecchymosis, no ulcerations. MEDICATIONS: At this time, currently include ipratropium and albuterol respiratory therapy q.4, ceftriaxone 1 gram q.24, atorvastatin 40 mg daily, metoprolol 25 daily, Lovenox 40 daily, aspirin 81 daily, gabapentin 600 t.i.d., clonazepam 1 mg t.i.d., dronabinol 5 mg t.i.d., quetiapine 50 mg with meals and at bedtime, nitroglycerin topically 0.5 inch b.i.d., tizanidine 4 mg t.i.d. p.r.n., tramadol 100 mg every 4 hours p.r.n. ASSESSMENT AND PLAN: 1. Leukocytosis, suspect it is from recent steroid taper that I do not believe the team was aware the patient had been on, but Care Everywhere suggest and the nurse went into the room while I was on the phone and asked the patient, yes he had been on the steroid taper. We will also, though because of concerns, check BCR-ABL and flow cytometry and peripheral blood, though I am not really expect to find any abnormality, though his counts have been slightly higher during the last several months, in January of 21,000 during the hospitalization. 2. HIV, antiretrovirals. 3. Chest pain. Cardiology to see, followed by Dr. Guidno. Also with hypertension. 4. Chronic obstructive pulmonary disease per others. 5. History of substance misuse. Defer to others. 6. Mood disorder. Defer to others. <ELECTRONICALLY SIGNED> By: Haris Holden MD 07/14/21 0821 5 2109 Haris Holden MD /nt
[2021-07-14 11:50] VITALS: BP 124/61
--- NOTE | 2021-07-14 12:30 | NUR ---
CARE ASSUMED THIS AM, PT ALERT AND ORIENTED X4, DENIES CHEST PAIN, NAUSEA AND VOMITTING. COMPLAINS OF NUMBNESS IN HIS HANDS, DR. MENENDEZ. LABORED BREATHING, SOB WITH EXERTION, CURRENTLY ON 5L OF OXYGEN. USES BSC AND URINAL. FALL PREC. PLACE.DENIES ANY NEES MITZI. WILL CONTINUE TO MONITOR
--- NOTE | 2021-07-14 12:38 | NUR ---
[facility] was notified that dc was held yesterday. The pt will here again today and is getting iv steriods and montioring due to reaction/GOLD LAYER yesterday with CT angio. Will follow.
[2021-07-14 13:46] LABS: BE(vivo) 0.6 mmol/L (-2 to +3); HCO3 24.3 mmol/L (22.0-26.0); PCO2 35.3 mmHg (35.0-45.0); PO2 126.7 mmHg (80.0-100.0); pH 7.455 (7.360-7.450); sO2 98.7 % (92.0-98.0)
[2021-07-14 14:00] LABS: CALCIUM 9.2 mg/dL (8.5-10.1); CREATININE 1.3 mg/dL (0.7-1.3); POTASSIUM 4.8 mmol/L (3.5-5.1)
[2021-07-14 14:08] LABS: GLOBULIN TOTAL 2.5 g/dL (2.2-3.9); M-SPIKE Not Observed g/dL (Not Observed)
[2021-07-14 16:14] VITALS: BP 147/78
[2021-07-14 20:03] VITALS: BP 119/54
--- NOTE | 2021-07-15 01:48 | NUR ---
ASSUMED CARE OF PT AT 1900, PT ON 5L NC, ASSESSMENT COMPLETED NOTED. PT A/OX4, PT EDUCATED ON THE IMPORTANCE OF INCREASING PO FLUIDS IN THE FORM OF WATER R/T CREATININE LEVELS, PT STATES UNDERSTANDING. WILL CONTINUE TO WORK TOWARDS PT'S POC.
[2021-07-15 02:49] LABS: CALCIUM 9.5 mg/dL (8.5-10.1); CREATININE 1.3 mg/dL (0.7-1.3); POTASSIUM 5.2 mmol/L (3.5-5.1)
[2021-07-15 04:51] VITALS: BP 120/56
[2021-07-15 07:08] LABS: CD3 % 68.2 % (57.5-86.2); CD4 % 30.4 % (30.8-58.5); CD4:CD8 0.79 (0.92-3.72); CD8 % 38.3 % (12.0-35.5)
[2021-07-15 07:37] LABS: BE(vivo) 6.9 mmol/L (-2 to +3); HCO3 32.3 mmol/L (22.0-26.0); PCO2 49.9 mmHg (35.0-45.0); PO2 81.3 mmHg (80.0-100.0); pH 7.429 (7.360-7.450); sO2 96.1 % (92.0-98.0)
[2021-07-15 08:00] VITALS: BP 142/81
[2021-07-15] MEDS ORDERED: PREDNISONE 10 M10 M1 PO (12:31)
[2021-07-15] MEDS ORDERED: CEFDINIR300 MG PO (12:31)
[2021-07-15 12:43] VITALS: BP 155/82
[2021-07-15 12:44] VITALS: BP 130/73
--- NOTE | 2021-07-15 14:16 | NUR ---
Pt dc'd to home today with his spouse. O2 needs back to baseline and pt had his portable tank in the room. DC summary and instructions being faxed to [facility] per the dc media planner / buyer. They will see the pt this weekend. no other dc planning needs indicated.
--- NOTE | 2021-07-15 14:31 | NUR ---
ASSESSMENT CHARTED - MEDS PER JAN - PT WITH CO'S OF HEADACHE GIVEN TRAMADOL WITH MOD EFFECT - PT WITH CO'S OF COUGH GIVEN CEPACOL WITH MOD EFFECT - PT CONSTANTLY ASKING FOR COFFEE - BECAME ANGRY WITH STAFF AND REFUSED TO TAKE MEDS UNTIL HE WAS GIVEN MORE. PT SOB AT REST - PT WITH O2 @ 3 L NC. THIS AM PT WAS NOT ABLE TO BE AWOKEN - VSS. SAT 95% STERNAL RUB AND PT DID NOT AWAKEN - PAINFUL STIMULI TO EXTREMITIES DID NOT AWAKEN BLOOD GASES DONE - PT O2 TURNED DOWN TO 3 LNC. PT DID AWAKEN BY HIMSELF AND BECAME CONVERSIVE AND DEMANDING COFFEE - PT HOME THIS AFTERNOON - INSTRUCTIONS RE HOME MEDS/ CARE AND FOLLOW UP GIVEN TO PT AND SPOUSE - THEY STATED UNDERSTANDING OF INSTRUCTION GIVEN. LEFT UNIT VIA WHEELCHAIR WITH PRESONAL O2 . HOME VIA PVT VEHICLE ACCOMAPNIED BY SPOUSE - NO CO'S AT TIME OF D/C.
[2021-07-18 19:07] LABS: HEMOGLOBIN 9.7 g/dL (13.0-17.7)
== END 2021-07-15 14:12 | disposition home health service (06) | DRG 205 ==
LOC: ER 14:49 → 2N 07-12 08:08
PROVIDERS: Emergency Medicine; Hospitalist; Internal Medicine; Nurse Practitioner; Physician Assistant; Psychiatry & Neurology Neuromuscular Medicine; Specialist; ADMIT Hospitalist; ATTEND Hospitalist
DX: M94.0 Chondrocostal junction syndrome [Tietze] (principal); J96.20 Acute and chronic respiratory failure, unspecified whether with hypoxia or hypercapnia; R65.11 Systemic inflammatory response syndrome (SIRS) of non-infectious origin with acute organ dysfunction; I69.354 Hemiplegia and hemiparesis following cerebral infarction affecting left non-dominant side; D72.829 Elevated white blood cell count, unspecified; J44.9 Chronic obstructive pulmonary disease, unspecified; Z20.822 Contact with and (suspected) exposure to COVID-19; I10 Essential (primary) hypertension; Z60.2 Problems related to living alone; E78.5 Hyperlipidemia, unspecified; D64.9 Anemia, unspecified; F41.1 Generalized anxiety disorder; G89.29 Other chronic pain; M79.7 Fibromyalgia; M48.02 Spinal stenosis, cervical region; Z87.11 Personal history of peptic ulcer disease; Z98.42 Cataract extraction status, left eye; Z98.41 Cataract extraction status, right eye; Z90.49 Acquired absence of other specified parts of digestive tract; Z88.0 Allergy status to penicillin; Z88.2 Allergy status to sulfonamides; Z88.8 Allergy status to other drugs, medicaments and biological substances; Z91.041 Radiographic dye allergy status; Z87.891 Personal history of nicotine dependence; Z82.49 Family history of ischemic heart disease and other diseases of the circulatory system; Z79.82 Long term (current) use of aspirin; Z79.899 Other long term (current) drug therapy; Z83.3 Family history of diabetes mellitus
CPT/HCPCS: 10081

== ENCOUNTER → 2021-08-08 | Outpatient (CLI) | payer OTHER ==
[~2021-08-08] MED LIST changes: +CEFDINIR300 MG PO
== END ==
LOC: RAD 10:09
PROVIDERS: ATTEND Internal Medicine
DX: J44.9 Chronic obstructive pulmonary disease, unspecified (principal)

== ENCOUNTER → 2021-09-16 | Outpatient (CLI) | payer OTHER ==
[~2021-09-16] MED LIST changes: +DOXYCYCLINE 10100 MG PO; +LORAZEPAM 1 MG T1 MG PO; +SEROQUEL 100 M100 M1 PO; +SEROQUEL 50 MG50 M1 PO; +[UNRECOGNIZED DRUG - OTHER] PO
--- NOTE | 2021-09-16 09:53 | 2DMMODE ---
[facility] [place] [address] 2 D/M-MODE ECHOCARDIOGRAM Name: JOHNATHON THORPE Room #: REG [facility]#: [id number] Admission: 09/16/21 Attend Phys: Narendra Ruiz MD Discharge: Date of : 64 Report #: [id number] THIS REPORT FOR: cc: Segundo Hunter Craig DO Park, Jin S. MD ~ APPROVED REPORT Study performed: 09/16/2021 09:28:25 EXAM: Comprehensive 2D, Doppler, and color-flow Echocardiogram Patient Location: Out-Patient Status: routine BSA: 2.06 HR: 74 bpm BP: 148/82 mmHg Other Information Study Quality: Adequate Technically limited study due to heavy breathing, chest movement.. Indications Short of breath. COPD. (Complete echo done 07/12/21). Aortic Valve AoV Peak Oziel.: 1.20 m/s AO Peak Gr.: 5.74 mmHg Mitral Valve E/A Ratio: 0.8 MV Decel. Time: 322.01 ms MV E Max Oziel.: 0.55 m/s MV A Oziel.: 0.72 m/s MV PHT: 93.38 ms Tricuspid Valve TR Peak Oziel.: 2.20 m/s RAP Estimate: 5.00 mmHg TR Peak Gr.: 19.33 mmHg PA Pressure: 24.00 mmHg Left Ventricle [facility] [address] [place] [address] 2 D/M-MODE ECHOCARDIOGRAM Name: JOHNATHON THORPE Room #: REG CL [facility]#: [id number] Admission: 09/16/21 Attend Phys: Narendra Ruiz, Discharge: Date of : 64 Report #: [id number] The left ventricle is normal size. Mild concentric left ventricular hypertrophy. Left ventricular systolic function is normal. LVEF is 50-55%. Mild diastolic dysfunction is present (impaired relaxation pattern). Right Ventricle The right ventricle is normal size. The right ventricular systolic function is normal. Atria The left atrium size is normal. The right atrium size is normal. Aortic Valve The aortic valve is normal in structure. Trace aortic regurgitation. There is no aortic valvular stenosis. Mitral Valve The mitral valve is normal in structure. Mild mitral annular calcification. Trace mitral regurgitation. Tricuspid Valve The tricuspid valve is normal in structure. Trace tricuspid regurgitation. Estimated PAP is 24mmHg. Pulmonic Valve Pulmonic valve is not well visualized. Great Vessels The aortic root is normal in size. The ascending aorta is normal in size. IVC is normal in size and collapses >50% with inspiration. Pericardium There is no pericardial effusion. <Conclusion> The left ventricle is normal size. Mild concentric left ventricular hypertrophy. Left ventricular systolic function is normal. Mild diastolic dysfunction is present (impaired relaxation pattern). The right ventricle is normal size. The left atrium size is normal. Trace aortic regurgitation. Mild mitral annular calcification. [facility] [address] [place] [address] 2 D/M-MODE ECHOCARDIOGRAM Name: TERRIE THORPEPEDRITO Gallardo Room #: [facility]#: [id number] Admission: 09/16/21 Attend Phys: Narendra Ruiz, Discharge: Date of : 64 Report #: [id number] Trace mitral regurgitation. Trace tricuspid regurgitation. Estimated PAP is 24mmHg. <ELECTRONICALLY SIGNED> By: Dewayne Pisano MD 09/16/21951 1 1 Dewayne Pisano MD /INF
== END ==
LOC: ULTRA 08:23
PROVIDERS: ATTEND Internal Medicine
DX: I05.8 Other rheumatic mitral valve diseases (principal); K76.0 Fatty (change of) liver, not elsewhere classified; Z90.49 Acquired absence of other specified parts of digestive tract

== ENCOUNTER → 2021-09-30 | Outpatient (CLI) | payer OTHER | END | disposition home or self-care (01) | LOC: CAT 09-26 10:00 | PROVIDERS: ATTEND Internal Medicine | DX: J43.9 Emphysema, unspecified (principal); J16.8 Pneumonia due to other specified infectious organisms; J96.11 Chronic respiratory failure with hypoxia; F17.200 Nicotine dependence, unspecified, uncomplicated; Z21 Asymptomatic human immunodeficiency virus [HIV] infection status ==

== ENCOUNTER 2021-10-03 09:11 | Emergency (ER) | payer OTHER ==
[~2021-10-03] VITALS: Ht 167.6 cm; Wt 92.1 kg
[~2021-10-03 09:11] MED LIST changes: -DOXYCYCLINE 10100 MG PO; -LORAZEPAM 1 MG T1 MG PO; -SEROQUEL 100 M100 M1 PO; -SEROQUEL 50 MG50 M1 PO; -[UNRECOGNIZED DRUG - OTHER] PO
[2021-10-03 11:00] LABS: ABSOLUTE NEUTROPHILS 6.4 thou/uL (1.4-8.2); EOSINOPHILS 5.8 % (0.0-3.0); HEMATOCRIT 31.4 % (42.0-52.0); HEMOGLOBIN 9.7 gm/dL (14.0-18.0); LYMPHOCYTES 29.5 % (24.0-44.0); MCH 24.2 pg (26.0-34.0); MCHC 30.8 g/dL (28.0-37.0); MCV 78.5 fL (80.0-100.0); MONOCYTES 11.4 % (1.0-8.0); PLATELET COUNT 439 thou/uL (150-400); POLYS 52.3 % (36.0-66.0); RDW 19.7 % (10.5-14.5); WBC 12.2 thou/uL (4.0-11.0)
[2021-10-03 11:08] LABS: CALCIUM 9.1 mg/dL (8.5-10.1); CREATININE 1.3 mg/dL (0.7-1.3); POTASSIUM 3.8 mmol/L (3.5-5.1)
[2021-10-03 11:12] LABS: ANISOCYTOSIS 2+; HYPOCHROMASIA 1+; POIKILOCYTOSIS 1+
--- NOTE | 2021-10-03 11:35 | EKG ---
[address] [address] ELECTROCARDIOGRAM REPORT Name: ILAJOHNATHON Gallardo Room #: [facility]#: [id number] Admission: 10/03/21 Attend Phys: Discharge: Date of : 64 Report #: [id number] [facility] ED Test Date: 2021-10-03 Test Time: 10:32:47 Pat Name: JOHNATHON THORPE Department: Room: Gender: M Crate Opener: EMILY : 1960 Requested By: Mateo Lang Order Number: [id number] MD: Mason Packer Measurements Intervals [place] Rate: 83 P: 21 MA: 137 QRS: -22 QRSD: 95 T: 18 QT: 417 QTc: 490 Interpretive Statements NSR Borderline left axis deviation Compared to ECG 07/13/2021 18:29:31 No significant changes Electronically Signed On 10-03-2021 11:35:13 COMMUNICATIONS PROFESSOR by Mason Packer [email or web address] <ELECTRONICALLY SIGNED> By: Mason Packer MD, [facility] 10/03/21 1135 1032 1032 Mason Packer MD, FACC /EPI
[2021-10-03] MEDS ORDERED: DOXYCYCLINE 10100 MG PO (12:27)
[2021-10-03] MEDS ORDERED: PREDNISONE 10 M10 MG PO (12:27)
[2021-10-03 12:47] VITALS: BP 138/87
== END 2021-10-03 12:51 | disposition home or self-care (01) ==
LOC: ER 09:11
PROVIDERS: Student in an Organized Health Care Education/Training Program
DX: J44.1 Chronic obstructive pulmonary disease with (acute) exacerbation (principal); Z20.822 Contact with and (suspected) exposure to COVID-19; R06.02 Shortness of breath; I10 Essential (primary) hypertension; F17.210 Nicotine dependence, cigarettes, uncomplicated; Z21 Asymptomatic human immunodeficiency virus [HIV] infection status; Z90.49 Acquired absence of other specified parts of digestive tract; Z98.890 Other specified postprocedural states; Z79.899 Other long term (current) drug therapy; Z91.030 Bee allergy status; Z91.02 Food additives allergy status; Z88.0 Allergy status to penicillin; Z88.2 Allergy status to sulfonamides

== ENCOUNTER 2021-10-05 11:47 | Inpatient (IN) | payer OTHER ==
[~2021-10-05] VITALS: Ht 180.3 cm; Wt 92.1 kg
[~2021-10-05 11:47] MED LIST changes: +DOXYCYCLINE 10100 MG PO
[2021-10-05 11:49] VITALS: BP 146/84
[2021-10-05 12:24] LABS: BASOPHILS 0.6 % (0.0-2.0); MCHC 30.3 g/dL (28.0-37.0)
[2021-10-05 12:26] LABS: ABSOLUTE NEUTROPHILS 7.2 thou/uL (1.4-8.2); CALCIUM 9.9 mg/dL (8.5-10.1); CREATININE 1.4 mg/dL (0.7-1.3); EOSINOPHILS 0.6 % (0.0-3.0); HEMATOCRIT 37.9 % (42.0-52.0); HEMOGLOBIN 11.5 gm/dL (14.0-18.0); LYMPHOCYTES 47.9 % (24.0-44.0); MCH 23.6 pg (26.0-34.0); MONOCYTES 6.4 % (1.0-8.0); POLYS 44.5 % (36.0-66.0); POTASSIUM 3.5 mmol/L (3.5-5.1); RBC 4.86 mil/uL (4.50-6.00); RDW 20.3 % (10.5-14.5); WBC 16.1 thou/uL (4.0-11.0)
[2021-10-05 12:29] LABS: PLATELET COUNT 539 thou/uL (150-400)
[2021-10-05 12:36] LABS: ALBUMIN 3.8 g/dL (3.4-5.0); DIRECT BILIRUBIN 0.2 mg/dL (<0.1-0.2); TOTAL BILIRUBIN 0.9 mg/dL (0.2-1.0); TOTAL PROTEIN 7.7 g/dL (6.4-8.2)
[2021-10-05 12:56] LABS: BE(vivo) 4.1 mmol/L (-2 to +3); HCO3 27.5 mmol/L (22.0-26.0); PCO2 36.7 mmHg (35.0-45.0); PO2 84.5 mmHg (80.0-100.0); pH 7.492 (7.360-7.450); sO2 97.1 % (92.0-98.0)
[2021-10-05 14:48] VITALS: BP 156/93
--- NOTE | 2021-10-05 17:15 | EKG ---
[address] [address] ELECTROCARDIOGRAM REPORT Name: JOHNATHON THORPE Room #: 170-16 ADM IN M.R.#: [id number] Admission: 10/05/21 Attend Phys: Iván Norwood MD Discharge: Date of : 64 Report #: [id number] [facility] ED Test Date: 2021-10-05 Test Time: 11:54:16 Pat Name: JOHNATHON THORPE Department: Room: 170 Gender: M Professional Housing Consultant: CHI : 1960 Requested By: Mateo Lang Order Number: [id number] MD: Mason Packer Measurements Intervals [place] Rate: 117 P: 63 [place]: 135 QRS: -17 QRSD: 85 T: 39 QT: 324 QTc: 452 Interpretive Statements Sinus tachycardia Atrial premature complexes Borderline left axis deviation Compared to ECG 10/03/2021 10:32:47 Atrial premature complex(es) now present Electronically Signed On 10-05-2021 17:15:28 CREDIT DEPARTMENT MANAGER by Mason Packer [email or web address] <ELECTRONICALLY SIGNED> By: Mason Packer MD, [facility] 10/05/21 1715 1154 1154 Mason Packer MD, [facility] /EPI
[2021-10-05 18:17] VITALS: BP 159/101
[2021-10-05 21:59] VITALS: BP 161/109
[2021-10-05 22:17] VITALS: BP 162/98
[2021-10-05 23:18] VITALS: BP 145/113
[2021-10-06 04:56] VITALS: BP 160/90
--- NOTE | 2021-10-06 05:17 | NUR ---
PATIENT ADMITTED FOR COPD EXACEBATION. PATIENT AOX4 MAKES NEEDS KNOWN. PATIENT HAD HOME MEDS, MEDS TAKEN TO PHARMACY.PATIENT BEEN SOA WITH ACTIVITIES. RT CALLED FOR BREATHING TREATMENT. ANXIETY AND PAIN CONTROLLED THIS SHIFT. PATIENT ON 4L OF OXYGEN NO SOA OR DISTRESS NOTED AT THIS TIME. FALL PRECAUTION IN PLACE. PATIENT IN BED ASLEEP AT THIS TIME BREATHING REGULAR AND UNLABOURED.
[2021-10-06 05:37] LABS: HEMATOCRIT 32.7 % (42.0-52.0); HEMOGLOBIN 10.1 gm/dL (14.0-18.0)
[2021-10-06 05:39] LABS: MCH 23.9 pg (26.0-34.0); MCHC 30.9 g/dL (28.0-37.0); MCV 77.4 fL (80.0-100.0); RBC 4.23 mil/uL (4.50-6.00); RDW 19.9 % (10.5-14.5); WBC 12.2 thou/uL (4.0-11.0)
[2021-10-06 05:49] LABS: PLATELET COUNT 464 thou/uL (150-400)
[2021-10-06 06:05] LABS: CALCIUM 8.9 mg/dL (8.5-10.1); MAGNESIUM 1.7 mg/dL (1.8-2.4); POTASSIUM 3.5 mmol/L (3.5-5.1)
[2021-10-06 08:01] VITALS: BP 150/87
[2021-10-06 08:20] LABS: NUCLEATED RBCS 1 /100WBC
[2021-10-06 08:22] LABS: ABSOLUTE NEUTROPHILS 6.8 thou/uL (1.4-8.2); ATYPICAL LYMPHS 3 %
[2021-10-06 09:11] LABS: ANISOCYTOSIS 2+; SCHISTOCYTES FEW
[2021-10-06 09:12] LABS: POLYCHROMASIA OCCASIONAL
[2021-10-06 16:35] VITALS: BP 140/75
--- NOTE | 2021-10-06 18:39 | NUR ---
ASSUMED CARE AT SHIFT CHANGE. PT A/O X 4, ANXIOUS AND RESTLESS THIS AM, C/O R SHOULDER PAIN- ACUTE SINCE YESTERDAY, SHARP AND RADIATING TO R NECK. WORSE WITH MOVEMENT. HEATING PAD GIVEN, ORDERS FOR PAIN MEDS RECEIVED BY DR CUEVAS. ORTHO CONSULT ADDED AND COMPLETE. PT RESTED MOST OF THE AFTERNOON AFTER MEDS GIVEN. SOA WITH EXERTION. SMALL BM THIS SHIFT IN BSC. UP WITH SBA. MRI SHOULDER ADDED FOR TOMORROW PER ORTHO.
[2021-10-06 20:06] VITALS: BP 132/72
[2021-10-07 00:21] VITALS: BP 125/78
--- NOTE | 2021-10-07 03:54 | NUR ---
ASSUMED PT CARE THIS PM. PT IS ALERT AND ORIENTEDX4. PT IS ON 3L O2 VIA NC. PT SLEPT FOR THE MOST PART OF THE SHIT. PT DID NOT C/O N/V OR PAIN. MEDS WERE GIVIEN PER EMAR ORDERS. PT DID NOT VERBALIZE ANY CONCERNS. FALL PRECAUTIONS IN PLACE. WILL CONTINUE TO MONITOR.
[2021-10-07 03:58] VITALS: BP 133/61
[2021-10-07 07:00] VITALS: BP 138/80
--- NOTE | 2021-10-07 12:46 | HC ---
[facility] [place] [address] [place] [address] CONSULTATION Name: JOHNATHON THORPE Room #: 456-P [facility] IN M.R.#: [id number] Admission: 10/05/21 Attend Phys: Iván Norwood MD Discharge: Date of : 64 Report #: [id number] THIS REPORT FOR: cc: Segundo Hunter,Segundo Garcia,Carlota Hollingsworth MD ~ DATE OF SERVICE: 10/06/2021 REASON FOR CONSULTATION: Right shoulder pain. HISTORY OF PRESENT ILLNESS: The patient is a 60-year-old right hand dominant male who reports right shoulder pain since the day of admission without any specific inciting event. He reports a burning type stabbing pain that goes up from the superior part of his shoulder up to his ear. He also reports increased pain with shoulder motion. He has a history of bilateral rotator cuff repairs remotely. The patient has had no specific treatment. REVIEW OF SYSTEMS: NEUROLOGIC: Denies numbness or tingling. MUSCULOSKELETAL: See HPI. PAST MEDICAL HISTORY: Significant for COPD, HIV, neurosyphilis and anxiety. ALLERGIES: BEE STINGS, IODINE, SKYLAR, PENICILLIN, PREDNISONE, SULFAMETHOXAZOLE, TRIMETHOPRIM, ____. MEDICATIONS: Doxycycline, prednisone, clonazepam, quetiapine, folic acid, tizanidine, pantoprazole, colesevelam, fluticasone, albuterol, metoprolol, atorvastatin. PAST SURGICAL HISTORY: Bilateral shoulder rotator cuff repairs, right hand surgery, knee surgery, brain aneurysm surgery, appendectomy, splenectomy, and cholecystectomy. SOCIAL HISTORY: He is , lives with his spouse and a dog. He was a former smoker. Denies current alcohol use. LABORATORY DATA: Most recent laboratory studies done on 10/06/2021 show white blood cell count 12.2, hemoglobin 10.1, hematocrit 32.7, platelet count 464. Chemistry is grossly normal. COVID test is negative. PHYSICAL EXAMINATION: GENERAL: The patient is alert and oriented, interacts appropriately. He is a well-developed, well-nourished male in no acute distress. He has normal affect. He converses well. VITAL SIGNS: Most recent vital signs show heart rate of 96, respiration rate [address] [address] CONSULTATION Name: JOHNATHON THORPE Room #: 456-P [facility] IN [facility].#: [id number] Admission: 10/05/21 Attend Phys: Iván Norwood MD Discharge: Date of : 64 Report #: [id number], blood pressure 140/75, pulse oximetry 98% on 3 liters of nasal cannula. EXTREMITIES: Examination of his bilateral upper extremities is grossly normal. NEUROLOGIC: Motor and sensory is intact. SKIN: Clean, dry and intact. MUSCULOSKELETAL: Focused examination of the right shoulder shows tenderness superiorly at the trapezial muscle anteriorly, laterally and posteriorly at the glenohumeral joint as well as the clavicle. He has mild pain with passive range of motion of the shoulder. He does have pain with active range of motion of the shoulder and has limited forward flexion to approximately 90 degrees, whereas on the left forward flexion is to approximately 130 degrees. There is no effusion, no swelling is noted. He has a 2+ radial pulse. No other tenderness in the right upper extremity, no tenderness in the left upper extremity. RADIOGRAPHS: 3 views of the right shoulder are reviewed by myself as well as the report was reviewed, which shows no acute injury. No significant arthrosis. IMPRESSION AND PLAN: Right shoulder pain with history of rotator cuff repair. His symptoms appear more to be cervical spine related. However, we will order an MRI of the shoulder to rule out any potential new onset shoulder pathology. Questions were encouraged and answered to the best of my ability. Thank you very much for allowing me to participate in the care of your patient. <ELECTRONICALLY SIGNED> By: Carlota Carter MD 10/07/21 1246 1649 Carlota Carter MD /nt
--- NOTE | 2021-10-07 15:46 | NUR ---
PT ADMITTED RELATED TO COPD EXACEBATION. CM REVIEWED CHART AND SPOKE WITH CARE TEAM. CM MET WITH PT AT BEDSIDE THIS DAY. PT APPEARED TO BE A&O X4. CM ROLE INTRODUCED. PT INDICATED HE LIVES IN A HOUSE WITH HIS SPOUSE WITH 1 STEP TO ENTER AND 15 STEPS INSIDE. PT INDICATED HE HAD USED A CANE TO ASSIST WITH MOBILITY [employer]. PT HAS A FWW, A WC AND HOME O2 THROUGH [facility] AT 4L [employer]. PT INDICATED HE HAD [facility] IN THE PAST AND DIDN'T WANT THEM AGAIN. PT IS RECEPTIVE TO HH SERVICES UPON DC AND INDICATED NO PREFEREANCE. PT INDICATED HE HAD BEEN MOSTLY INDEPEDNENT WITH ADLS [employer] BUT THAT HE NEEDED HIS SPOUSE TO ASSIST WITH BATHING AT TIMES. CM SENT REFERRAL TO [facility] AND THEY CAN ACCEPT. THEY WILL DO A SOC ON SUNDAY. IT IS ANTICIPATED THAT PT WILL BE MEDICALLY STABLE TO DC TOMORROW. FAX ORDERS TO CALL TO .
[2021-10-07] MEDS ORDERED: [UNRECOGNIZED DRUG - OTHER] PO (18:06)
[2021-10-07 19:40] VITALS: BP 146/85
--- NOTE | 2021-10-07 20:24 | NUR ---
Assumed pt care this am, pt is very anxious, needed medication for MRI to be done. Right shoulder had a heating pad and pain patch. Main concern was for his HIV medications to be renewed, MO informed was advised to tell pharmacy to restart all HIV medication, pahrmacy was informed as well. Maintianed on 3 liters of O2 via NC. Endorsed to the night nurse.
[2021-10-08 00:28] VITALS: BP 140/74
[2021-10-08 04:52] VITALS: BP 133/70
--- NOTE | 2021-10-08 06:05 | NUR ---
ASSESSMENT COMPLETED. PT EXPERIENCES SOA WITH EXERTION. HAD AN INCONTINENT EPISODE OF DIARHOEA.AFEBRILE. PAIN TO R SHOULDER-MANAGED BY PAIN MEDS.
[2021-10-08] MEDS ORDERED: SEROQUEL 50 MG50 M1 PO (13:30)
[2021-10-08] MEDS ORDERED: SEROQUEL 100 M100 M1 PO (13:31)
[2021-10-08] MEDS ORDERED: LORAZEPAM 1 MG T1 MG PO (13:32)
[2021-10-08 13:40] VITALS: BP 133/70
--- NOTE | 2021-10-08 14:26 | NUR ---
Assumed pt care at 7am.Pt in bed very anxious about going home today. Assessment completed.vss. Meds given as ordered and well tolerated.Lidocaine patch applied to rt shoulder. Pt using heating pad as needed. Dr Norwood here dc order noted. Dc summary compile and reviewed with pt and partner. Piv and saline lock dc prior to pt home at 1400 per wc accompanied by straddle carrier operator.
== END 2021-10-08 14:00 | disposition home health service (06) | DRG 189 ==
LOC: ER 11:47 → EROBS 13:52 → 4W 13:52 → EROBS 19:31 → 4W 22:24
PROVIDERS: Nurse Practitioner; Student in an Organized Health Care Education/Training Program; ADMIT Internal Medicine; ATTEND Internal Medicine
DX: J96.21 Acute and chronic respiratory failure with hypoxia (principal); B20 Human immunodeficiency virus [HIV] disease; N17.9 Acute kidney failure, unspecified; J98.11 Atelectasis; I69.354 Hemiplegia and hemiparesis following cerebral infarction affecting left non-dominant side; D72.829 Elevated white blood cell count, unspecified; N18.9 Chronic kidney disease, unspecified; M48.02 Spinal stenosis, cervical region; Z20.822 Contact with and (suspected) exposure to COVID-19; M25.511 Pain in right shoulder; E78.5 Hyperlipidemia, unspecified; F41.1 Generalized anxiety disorder; I12.9 Hypertensive chronic kidney disease with stage 1 through stage 4 chronic kidney disease, or unspecified chronic kidney disease; J43.2 Centrilobular emphysema; M54.12 Radiculopathy, cervical region; Z87.11 Personal history of peptic ulcer disease; Z98.42 Cataract extraction status, left eye; Z98.41 Cataract extraction status, right eye; Z90.49 Acquired absence of other specified parts of digestive tract; Z90.81 Acquired absence of spleen; Z88.0 Allergy status to penicillin; Z88.2 Allergy status to sulfonamides; Z88.8 Allergy status to other drugs, medicaments and biological substances; Z91.041 Radiographic dye allergy status; Z87.891 Personal history of nicotine dependence
CPT/HCPCS: 10040; 10045

== ENCOUNTER 2021-11-30 13:05 | Inpatient (IN) | payer OTHER ==
[~2021-11-30] VITALS: Ht 180.3 cm; Wt 92.1 kg
--- NOTE | ~2021-11-30 | EMS ---
[facility] [address] [place] [address] EMS Patient Care Report Name: JOHNATHNO THORPE Room #: 448-P [facility] IN M.R.#: [id number] Admission: 11/30/21 Attend Phys: Dwaine Couch MD Discharge: 12/06/21 Date of : 64 Report #: [id number] THIS REPORT FOR: //name// Report Transmitted: 12/07/2021 08:25 EMS Care Summary [place], [place]/[facility] Incident [id number] @ 11/30/2021 12:20 Incident Location [address] [place] [address] Patient JOHNATHON THORPE Male, 60 Years 1960 Patient Address Patient History Other, Patient Allergies Penicillin allergy, Patient Medications Ativan, Oxygen, Gabapentin, Chief Complaint cxp- Disposition Transported No Lights/[place] Dispatch Reason Sick Person Transported To [facility] Narrative pt home is on his portable o2. has copd, has been having cxp for past 2 days. has hx of ami. states pain has been intermittent. center cx sharp non radiating. 08/05. hasnt been able to take meds for it d/t his n/v. that has been going on for 10 days. unable to keep food water down. he is also having increased soa from his normal . he uses 2lpm at home. after ntg use his pain was dropping from a 9/10 to a 7/10 by arrival at er. gave wilderfran for easing of [facility] [address] [place] [address] EMS Patient Care Report Name: ILAJOHNATHON Room #: 448-P [facility] IN M.R.#: [id number] Admission: 11/30/21 Attend Phys: Dwaine Couch MD Discharge: 12/06/21 Date of : 64 Report #: [id number] nausea he notes it also helpped. Initial Vitals @12:58P: 102,R: 20,BP: 146/85,SpO2: 98, @12:44P: 101,BP: 157/103,CO: 0,SpO2: 95, @12:32P: 104,BP: 180/108,SpO2: 93, @12:57P: 104,SpO2: 94, @12:58P: 104,BP: 146/85,SpO2: 96, @13:03P: 102,BP: 138/100, @12:43P: 108,CO: 1,SpO2: 95, @12:47P: 158,CO: 1,SpO2: 99, @13:02P: 101,SpO2: 97, @12:45P: 102,SpO2: 97, @12:38P: 100,R: 20,BP: 180/102,Pain: 9/10,GCS: 15,Glucose: 167,SpO2: 95,Revised Trauma: 12, Assessments @12:58MENTAL:No Abnormalities,SKIN:No Abnormalities,HEENT:Head/Face: No Abnormalities,Eyes: No Abnormalities,Neck/Airway: No Abnormalities,LUNG SOUNDS:Left Lower: Tenderness,Right Lower: Tenderness,General: Nausea,General: Vomiting,ABDOMEN:Left Lower: Tenderness,Right Lower: Tenderness,General: Nausea,General: Vomiting,PELVIS//GI:No Abnormalities,EXTREMITIES:Left Arm: No Abnormalities,Right Arm: No Abnormalities,Left Leg: No Abnormalities,Right Leg: No Abnormalities,PULSE:NEURO:No Abnormalities, Impression Chest Pain / Discomfort Procedures @12:34 ALS Assessment Response: UnchangedSucceeded @12:39 Nitro Paste - 1 Inches (in) - Topical Response: Improved @12:39 Aspirin - 324 Milligrams (mg) - Oral Response: Improved @12:39 IV Therapy - Normal Saline (.9% NaCl) 20cc (18 ga) Site: Forearm-Left Response: UnchangedSucceeded @12:50 Zofran - 4 Milligrams (mg) - Intravenous (IV) Response: Improved @12:35 Oxygen FlowRate: 4 Device: Nasal Cannula (NC) Response: UnchangedSucceeded @13:02 12-Lead ECG @12:45 12-Lead ECG Timeline 12:18,Call Received 12:18,Dispatch Notified 12:20,Dispatched 12:20,En Route [address] [address] EMS Patient Care Report Name: RISA THORPEHARLEY Gallardo Room #: 448-P [facility] IN .R.#: [id number] Admission: 11/30/21 Attend Phys: Dwaine Couch MD Discharge: 12/06/21 Date of : 64 Report #: [id number] 12:26,On Scene 12:29,At Patient 12:32,BP: 180/108 M,PULSE: 104,RR: R,SPO2: 93 Ox,ETCO2: ,BG: ,PAIN: ,GCS: , 12:34,ALS Assessment,Response: UnchangedSucceeded, 12:35,Oxygen FlowRate: 4 Device: Nasal Cannula (NC) Response: UnchangedSucceeded, 12:38,BP: 180/102 M,PULSE: 100,RR: 20 R,SPO2: 95 Ox,ETCO2: ,B,PAIN: 9,GCS: 15, 12:39,IV Therapy - Normal Saline (.9% NaCl) 20cc 18 ga Site: Forearm-Left,Response: UnchangedSucceeded, 12:39,Aspirin - 324 Milligrams (mg) - Oral,Response: Improved 12:39,Nitro Paste - 1 Inches (in) - Topical,Response: Improved 12:43,BP: / M,PULSE: 108,RR: R,SPO2: 95 Ox,ETCO2: ,BG: ,PAIN: ,GCS: , 12:44,BP: 157/103 M,PULSE: 101,RR: R,SPO2: 95 Ox,ETCO2: ,BG: ,PAIN: ,GCS: , 12:45,12-Lead ECG, 12:45,BP: / M,PULSE: 102,RR: R,SPO2: 97 Ox,ETCO2: ,BG: ,PAIN: ,GCS: , 12:47,BP: / M,PULSE: 158,RR: R,SPO2: 99 Ox,ETCO2: ,BG: ,PAIN: ,GCS: , 12:50,Zofran - 4 Milligrams (mg) - Intravenous (IV),Response: Improved 12:51,Depart Scene 12:57,BP: / M,PULSE: 104,RR: R,SPO2: 94 Ox,ETCO2: ,BG: ,PAIN: ,GCS: , 12:58,BP: 146/85 M,PULSE: 104,RR: R,SPO2: 96 Ox,ETCO2: ,BG: ,PAIN: ,GCS: , 12:58,BP: 146/85 M,PULSE: 102,RR: 20 R,SPO2: 98 Ox,ETCO2: ,BG: ,PAIN: ,GCS: , 13:01,At Destination 13:02,12-Lead ECG, 13:02,BP: / M,PULSE: 101,RR: R,SPO2: 97 Ox,ETCO2: ,BG: ,PAIN: ,GCS: , 13:03,BP: 138/100 M,PULSE: 102,RR: R,SPO2: Ox,ETCO2: ,BG: ,PAIN: ,GCS: , 13:24,Call Closed Disclaimer v1.1 Copyright 2021 [employer] This EMS Care Summary contains data elements from the applicable legal record (which may be displayed differently). It is designed to provide pertinent information for the following purposes: continuity of care, clinical quality, and state data reporting. The complete legal record is available to ED staff and administrators of the receiving hospital in [facility] Patient Tracker. All data is provided "as is."
[~2021-11-30 13:05] MED LIST changes: +LORAZEPAM 1 MG T1 MG PO; +SEROQUEL 100 M100 M1 PO; +SEROQUEL 50 MG50 M1 PO; +[UNRECOGNIZED DRUG - OTHER] PO
[2021-11-30 13:24] VITALS: BP 128/86
[2021-11-30 15:18] LABS: HEMOGLOBIN 11.7 gm/dL (14.0-18.0); RDW 20.5 % (10.5-14.5)
[2021-11-30 15:20] LABS: HEMATOCRIT 36.8 % (42.0-52.0); MCH 24.6 pg (26.0-34.0); MCHC 31.9 g/dL (28.0-37.0); MCV 77.2 fL (80.0-100.0); PLATELET COUNT 443 thou/uL (150-400); RBC 4.76 mil/uL (4.50-6.00); WBC 9.9 thou/uL (4.0-11.0)
[2021-11-30 15:24] LABS: CALCIUM 9.8 mg/dL (8.5-10.1); CREATININE 1.2 mg/dL (0.7-1.3); POTASSIUM 3.3 mmol/L (3.5-5.1)
[2021-11-30 15:31] LABS: ALBUMIN 3.9 g/dL (3.4-5.0); TOTAL BILIRUBIN 1.5 mg/dL (0.2-1.0); TOTAL PROTEIN 7.5 g/dL (6.4-8.2)
[2021-11-30 16:16] LABS: ABSOLUTE NEUTROPHILS 2.6 thou/uL (1.4-8.2); ATYPICAL LYMPHS 1 %; METAMYELOCYTES 1 %
[2021-11-30 16:20] LABS: ANISOCYTOSIS 1+; HYPOCHROMASIA 1+; TARGET CELLS 1+
--- NOTE | 2021-11-30 16:24 | EKG ---
[facility] [place] [address] ELECTROCARDIOGRAM REPORT Name: JOHNATHON THORPE Sami Room #: REG [facility]#: [id number] Admission: 11/30/21 Attend Phys: Discharge: Date of : 64 Report #: [id number] [facility] ED Test Date: 2021-11-30 Test Time: 13:29:30 Pat Name: JOHNATHON THORPE Department: Room: Gender: M Senior Solutions Architect: ANUSHKA : 1960 Requested By: Jerald Sanchez Order Number: [id number] MD: Mason Packer Measurements Intervals [place] Rate: 113 P: 42 FL: 150 QRS: -29 QRSD: 95 T: 32 QT: 369 QTc: 506 Interpretive Statements Sinus tachycardia Multiple premature complexes, vent & supraven Borderline left axis deviation Borderline repol abnormality, diffuse leads Prolonged QT interval Artifact in lead(s) II,III,aVR,aVL,aVF,V1,V2,V5,V6 and baseline wander in lead(s) I,III,aVR,aVL,aVF,V1,V2,V3,V4,V5,V6 Compared to ECG 10/05/2021 11:54:16 Prolonged QT interval now present Atrial premature complex(es) no longer present Electronically Signed On 11-30-2021 16:24:50 DEPARTMENT ADMINISTRATOR by Mason Packer [email or web address] <ELECTRONICALLY SIGNED> By: Mason Packer MD, [facility] 11/30/21 1624 1329 1329 Mason Packer MD, [facility] /EPI
--- NOTE | 2021-11-30 18:14 | NUR ---
COVID NOW AND FLU SWABS WERE SENT @1810
[2021-11-30] MEDS ORDERED: CLOPIDOGREL75 MG PO (19:17)
[2021-11-30] MEDS ORDERED: MELOXICAM15 MG PO (19:19)
[2021-11-30] MEDS ORDERED: HYDROXYZINE HCL50 MG PO (19:23)
[2021-12-01 01:30] VITALS: BP 104/83
[2021-12-01 02:23] LABS: HEMATOCRIT 34.3 % (42.0-52.0); HEMOGLOBIN 10.5 gm/dL (14.0-18.0); MCH 23.8 pg (26.0-34.0); MCHC 30.7 g/dL (28.0-37.0); MCV 77.6 fL (80.0-100.0); RBC 4.42 mil/uL (4.50-6.00); RDW 20.9 % (10.5-14.5); WBC 8.5 thou/uL (4.0-11.0)
[2021-12-01 02:31] LABS: CALCIUM 9.2 mg/dL (8.5-10.1); CREATININE 1.1 mg/dL (0.7-1.3); POTASSIUM 3.4 mmol/L (3.5-5.1)
[2021-12-01 09:50] VITALS: BP 134/87
[2021-12-01 11:37] LABS: % SATURATION 12 % (20-39); IRON 48 ug/dL (65-175); TIBC 412 ug/dL (250-450)
--- NOTE | 2021-12-01 16:39 | NUR ---
60 year old male presents to the ED on 12-01-21 with complaints of nausea and vomiting. Patient history of COPD and is on 4 L of oxygen at baseline. He also has a history of strokes with residual left-sided deficits, but is primarily functional and uses a cane to ambulate. Patient was last seen and discharged from [facility] home with his spouse on 10-18-21 with [facility] and reports he continues with this service. The patient admits with Intractable nausea/vomiting, Diarrhea, Aspiration pneumonia, Hypokalemia, COPD, HIV, and HLD. Notes vaccinated and negative via ED ID NOW. PT/OT orders have been placed. Mack Castro the patients spouse is listed as next of kin at [phone]. Anticipate possible return to Home with Home Health and CM will follow for discharge needs once therapy evaluations are completed in conjunction with MD assessment (s).
[2021-12-01 20:30] VITALS: BP 134/87
[2021-12-02 02:41] LABS: HEMATOCRIT 30.3 % (42.0-52.0); HEMOGLOBIN 9.4 gm/dL (14.0-18.0); MCH 24.2 pg (26.0-34.0); MCHC 30.9 g/dL (28.0-37.0); MCV 78.3 fL (80.0-100.0); RBC 3.87 mil/uL (4.50-6.00); RDW 20.7 % (10.5-14.5); WBC 6.9 thou/uL (4.0-11.0)
[2021-12-02 03:07] LABS: CALCIUM 9.1 mg/dL (8.5-10.1); POTASSIUM 3.5 mmol/L (3.5-5.1); TOTAL BILIRUBIN 1.5 mg/dL (0.2-1.0); TOTAL PROTEIN 5.4 g/dL (6.4-8.2)
[2021-12-02 04:41] VITALS: BP 139/73
--- NOTE | 2021-12-02 05:59 | NUR ---
PT MAKING PROGRESS TOWARDS GOALS. INITIALLY ON O2 AT 4L PER NC WITH O2 SATS IN THE UPPER 90'S. DECREASED TO 3L WITH O2 SAT REMAINING 92% OR GREATER ON SPOT CHECKS. NO SOA REPORTED WHILE AT REST.
[2021-12-02 07:11] LABS: URINE BILIRUBIN NEGATIVE (Negative); URINE BLOOD NEGATIVE (Negative); URINE CLARITY SL CLOUDY; URINE COLOR YELLOW; URINE GLUCOSE-RANDOM* NEGATIVE (Negative); URINE KETONES NEGATIVE (Negative); URINE LEUKOCYTES-REFLEX NEGATIVE (Negative); URINE NITRITE-REFLEX NEGATIVE (Negative); URINE PROTEIN (DIPSTICK) NEGATIVE (Negative); URINE SPECIFIC GRAVITY 1.025 (1.005-1.035)
[2021-12-02 12:00] VITALS: BP 164/93
--- NOTE | 2021-12-02 13:59 | NUR ---
[facility] updated as pt was on service with them prior to admission and they can accept him back at readmission. Clinical update faxed. Has needed dme in the home. No weekend dc anticipated. Possible home early next week with resumption of hh.
[2021-12-02 14:07] VITALS: BP 139/73
--- NOTE | 2021-12-02 14:21 | EKG ---
[address] [place] [address] ELECTROCARDIOGRAM REPORT Name: JOHNATHON THORPE Room #: 170-21 ADM IN M.R.#: [id number] Admission: 11/30/21 Attend Phys: Dwaine Couch MD Discharge: Date of : 64 Report #: [id number] [facility] Test Date: 2021-12-02 Test Time: 10:59:11 Pat Name: JOHNATHON THORPE Department: Room: 170 23 Gender: M Manager Performance: YARELIS : 1960 Requested By: Dillon Barclay Order Number: [id number] MD: Mason Packer Measurements Intervals [place] Rate: 94 P: -24 VT: 157 QRS: -33 QRSD: 94 T: -47 QT: 384 QTc: 481 Interpretive Statements Sinus rhythm Left axis deviation Borderline low voltage, extremity leads Borderline prolonged QT interval Compared to ECG 11/30/2021 13:29:30 Sinus tachycardia no longer present Electronically Signed On 12-02-2021 14:21:03 SET UP MECHANIC STAMPING MACHINES by Mason Packer [email or web address] <ELECTRONICALLY SIGNED> By: Mason Packer MD, [facility] 12/02/21 1421 1059 1059 Mason Packer MD, [facility] /EPI
[2021-12-02 15:43] VITALS: BP 139/73
--- NOTE | 2021-12-02 18:30 | NUR ---
PT RECEIVED FROM ER AT 1615 PER W/C ALERT AND IN NO ACUTE DISTRESS. PT ASSESSED AND ORIENTED TO THE UNIT. RESP EVEN AND UNLABORED. ON HOME O2 AT 4LNC. ENC TO USE I/S BREATH SOUNDS DIMINISHED. DRINKING FLUIDS. APPETITE DIMINISHED. BM THIS SHIFT. VOIDING AT BEDSIDE.
[2021-12-02 20:57] VITALS: BP 125/76
[2021-12-03 07:41] VITALS: BP 131/77
[2021-12-03 11:20] VITALS: BP 136/64
[2021-12-03 16:27] VITALS: BP 139/82
[2021-12-03 19:15] VITALS: BP 139/81
--- NOTE | 2021-12-03 21:32 | HC ---
[facility] [place] [address] CONSULTATION Name: JOHNATHON THORPE Room #: 448-P ADM IN M.R.#: [id number] Admission: 11/30/21 Attend Phys: Dwaine Couch MD Discharge: Date of : 64 Report #: [id number] THIS REPORT FOR: cc: Segundo Hunter,Segundo Bryan,Luis Jackson MD ~ DATE OF SERVICE: 12/01/2021 INFECTIOUS DISEASE CONSULTATION REASON FOR CONSULTATION: I was asked to evaluate concerning pneumonia, intractable nausea and vomiting in the setting of HIV infection. HISTORY OF PRESENT ILLNESS: The patient is a 60-year-old with longstanding HIV infection, on antiretroviral program Elvia presents with several-week history of nausea, vomiting, anorexia along with loose stools without hematemesis or hematochezia. He does have underlying history of previous peptic ulcer disease and GI bleed. He has had no fever, chills or sweats. He has had occasional chill and low-grade fever. He has progressively got more short of breath. He is typically on 3 liters of oxygen per nasal cannula. He has had nonproductive cough. He has been treated with antibiotics and corticosteroids as an outpatient without improvement. He has had COVID testing all negative. Denies any headache, anosmia, pharyngitis symptoms. He is edentulous. No rashes, adenopathy, weight loss, dysuria. REVIEW OF SYSTEMS: A 14-point review of system was negative other than what has been described above. No travel. Lives with his partner. No other known exposures. PAST MEDICAL HISTORY: Stroke with left-sided weakness, GI bleed, peptic ulcer disease, HIV, neurosyphilis, COPD, cerebral aneurysm, status post coiling, hypertension, multiple allergies, anxiety, hyperlipidemia, peripheral neuropathy, respiratory failure with chronic obstructive pulmonary disease exacerbations, chronic oxygen requirements, past tobacco use, cholecystectomy, right thumb surgery, left index finger surgery, splenectomy, appendectomy, full mouth extraction of his teeth, bilateral cataract extractions, left shoulder surgery, right knee surgery. FAMILY HISTORY: Colon cancer. SOCIAL HISTORY: No ongoing tobacco, alcohol or drug use. ALLERGIES: PENICILLIN, PREDNISONE, SULFA, LEMON, IODINE, BEE STINGS. MEDICATIONS: As noted on his MAR, which were reviewed. [address] [address] CONSULTATION Name: JOHNATHON THORPE Room #: 448-P [facility] IN .R.#: [id number] Admission: 11/30/21 Attend Phys: Dwaine Couch MD Discharge: Date of : 64 Report #: [id number] PHYSICAL EXAMINATION: GENERAL: He was afebrile and hemodynamically stable. He is alert, cooperative and pleasant. No acute distress, lying in bed with oxygen per nasal cannula in place. SKIN: Without rash or decubitus. No palpable adenopathy. Mild obesity. HEENT: Eyes without scleral icterus. Mouth, upper dentures. No oral lesions. NECK: Supple. LUNGS: Few crackles heard in the right base posteriorly. HEART: Regular, without murmur, gallop or rub. ABDOMEN: Soft, mild diffuse tenderness. No hepatosplenomegaly or mass. GENITORECTAL: Not performed. EXTREMITIES: Without clubbing, cyanosis or edema. NEUROLOGIC: Cranial nerves intact. SPINE: Nontender. No CVA tenderness. PSYCHIATRIC: Mood without anxiety. LABORATORY DATA: Reviewed. MICROBIOLOGY: Reviewed. IMAGING: Chest x-ray, CT scan of the abdomen and pelvis reviewed. IMPRESSION: 1. A 60-year-old underlying with human immunodeficiency virus infection, on combination antiretroviral therapy, presents with nausea, vomiting, abdominal pain and diarrhea over a several-week course. 2. Aspiration, edentulous, community-acquired pneumonia. 3. Chronic obstructive pulmonary disease with chronic oxygen needs. 4. Previous stroke from cerebral aneurysm. 5. Anxiety and depression, controlled. RECOMMENDATION: Continue antiretroviral therapy along with antibiotics for community-acquired, edentulous, aspiration pneumonia. Obtain CD4 count to assess viral control and current stage of his infection. Obtain sputum samples and urine antigens and adjust antibiotics accordingly. Serial chest x-ray. Further GI evaluation including upper endoscopy with biopsies if necessary, stool studies and evaluation for CMV Mycobacterium and yeast or fungus infection. Continue with nutritional support. <ELECTRONICALLY SIGNED> By: Luis Mcmillan MD 12/03/[phone] Luis Mcmillan MD /nt
--- NOTE | 2021-12-04 06:13 | NUR ---
PT AMBULATING TO BATHROOM INDEPENDENTLY AND IS TOLERATING FAIR. TRAMADOL PROVIDING PAIN RELIEF. RESTING COMFORTABLY. NO NEEDS VOICED. CALL LIGHT WITHIN REACH. FREQUENT OBSERVATION.
[2021-12-04 07:33] VITALS: BP 133/67
[2021-12-04 11:16] VITALS: BP 120/66
[2021-12-04 13:06] LABS: CD3 % 78.1 % (57.5-86.2); CD4 % 37.7 % (30.8-58.5); CD4:CD8 0.92 (0.92-3.72)
[2021-12-04 16:04] VITALS: BP 125/63
[2021-12-04 20:36] VITALS: BP 131/69
[2021-12-05 07:36] VITALS: BP 135/80
--- NOTE | 2021-12-05 07:46 | NUR ---
Assumed care on 12/04/21 @ 1900, On clear liquids till midnight and NPO after midnight for Colenoscopy. Completed bowel prep by 2300, Continent and up to toilet to move bowels. A&Ox4 cooperative with care and pleasant affect noted. Oxygen @ 5L n/c. Pain managed with Scheduled [place]. Call light within reach.
[2021-12-05 10:34] LABS: WBC 10.6 thou/uL (4.0-11.0)
[2021-12-05 10:37] LABS: HEMOGLOBIN 9.7 gm/dL (14.0-18.0); MCH 24.3 pg (26.0-34.0); MCHC 31.3 g/dL (28.0-37.0); MCV 77.8 fL (80.0-100.0); RBC 3.99 mil/uL (4.50-6.00); RDW 21.5 % (10.5-14.5)
[2021-12-05 10:47] LABS: CALCIUM 9.8 mg/dL (8.5-10.1); CREATININE 1.1 mg/dL (0.7-1.3); POTASSIUM 4.3 mmol/L (3.5-5.1)
--- NOTE | 2021-12-05 14:35 | NUR ---
PATIENT NPO THIS MORNING. MEDS PASSED WITH SMALL SIPS OF WATER PER PACU REQUEST. NO COMPLAINTS THIS MORNING. LEFT FOR PROCEDURE AND CAME BACK ONLY COMPLAINTS OF SOA. OXYGEN RESTARTED AND RT CALLED FOR BREATHING TREATMENT. PAGED FOR CHANGE IN DIET AND PT WAS ALLOWED TO EAT. WILL CONTINUE TO MONITOR.
[2021-12-05] MEDS ORDERED: ACIDOPHILUS1 EAC4 PO (15:45)
[2021-12-05] MEDS ORDERED: LOPERAMIDE 2 MG2 M1 PO (15:45)
[2021-12-05] MEDS ORDERED: PROTONIX40 M2 PO (15:45)
[2021-12-05 16:13] VITALS: BP 100/60
[2021-12-05 17:21] VITALS: BP 139/73
--- NOTE | 2021-12-05 17:57 | NUR ---
danielle jain this evening. Plan home with [facility] care. Will fax orders in am. Patient has home oxygen in place with [facility]. Patient reports his partner cannot see well at night. Notified RN of cab voucher and location of oxygen tank from [facility] if needed.
[2021-12-05] MEDS ORDERED: METRONIDAZOLE500 M4 PO (19:17)
[2021-12-05] MEDS ORDERED: LEVOFLOXACIN500 MG PO (19:17)
[2021-12-05 22:05] VITALS: BP 125/49
--- NOTE | 2021-12-06 06:04 | NUR ---
RECEIVED CARE OF THIS PATIENT AT 1900. PATIENT ALERT AND ORIENTED X4. UP IN ROOM AD JUDY. DOES OWN SELF CARES. DENIES PAIN. SLEPT MOST OF NIGHT.
[2021-12-06 08:14] VITALS: BP 134/72
[2021-12-06 11:00] VITALS: BP 134/72; BP 139/73
[2021-12-06] MEDS ORDERED: MEDROL4 M1 PO (11:05)
--- NOTE | 2021-12-06 15:08 | NUR ---
Patient to dc home. Faxed orders to [facility] home health care. Patient has home oxygen in place with [facility]. Faxed [employer] updated sat/rest excercise.
--- NOTE | 2021-12-07 18:06 | PATH ---
[facility] [address] [place] [address] PATHOLOGY RPT PROCEDURE Name: RISA RAIHARLEY Gallardo Room #: 448-P DIS IN M.R.#: [id number] Admission: 11/30/21 Date of : 64 Discharge: 12/06/21 Report #: [id number] Path Case #: [id number] [facility] Accession Number: [id number] . 01 Material submitted: . colon - RANDOM COLON BIOPSY R/O MICROSCOPIC COLITIS . 01 Clinical history: . COLONOSCOPY DIARRHEA, MICROSCOPIC ANEMIA DIVERTICULITIS . 02 Diagnosis: Colonic mucosa (random colon biopsies): - Mild to moderate nonspecific chronic inflammation of lamina propria with focal lymphoid aggregate formation; negative for dysplasia, negative for active chronic colitis. (WEIK:feliberto; 12/07/2021) QMS 12/07/2021 1526 Local . 02 Electronically signed: . Armando Reyna MD, Pathologist NPI- [id number] . 01 Gross description: . The specimen is received in formalin, labeled "Johnathon Rai, random colon biopsy, R/O microscopic colitis". Received are multiple segments of pale segal tissue ranging in size from 0.2-0.7 cm in maximum dimensions. The specimen is submitted entirely in cassette A1. (CAA; 12/06/2021) QAC/QAC 12/06/2021 1042 Local . 02 Pathologist provided ICD-10: K52.9 . 02 CPT . 784795 Specimen Comment: A courtesy copy of this report has been sent to [phone] Specimen Comment: [phone], Specimen Comment: Report sent to , DR PABLO / DR WEISS Performed at: [address] [id number] MD Steffen Simental MD Phone: [phone] Performed at: [address] [address] PATHOLOGY RPT PROCEDURE Name: RAIJOHNATHON Jacobo Room #: 448-P DIS IN M.R.#: [id number] Admission: 11/30/21 Date of : 64 Discharge: 12/06/21 Report #: [id number] Path Case #: [id number] [address] [id number] MD Armando Reyna MD Phone: [phone]
== END 2021-12-06 16:47 | disposition home health service (06) | DRG 177 ==
LOC: ER 13:05 → 4S 20:42 → EROBS 20:42 → 4S 12-02 16:20
PROVIDERS: Emergency Medicine; Nurse Practitioner; Nurse Practitioner Family; Specialist; ADMIT Hospitalist; ATTEND Hospitalist
PROC: 0DJ08ZZ Inspection of Upper Intestinal Tract, Via Natural or Artificial Opening Endoscopic (ICD-10-PCS; principal; 2021-12-02)
PROC: 0DBE8ZX Excision of Large Intestine, Via Natural or Artificial Opening Endoscopic, Diagnostic (ICD-10-PCS; 2021-12-05)
DX: J69.0 Pneumonitis due to inhalation of food and vomit (principal); J96.21 Acute and chronic respiratory failure with hypoxia; E44.1 Mild protein-calorie malnutrition; J44.1 Chronic obstructive pulmonary disease with (acute) exacerbation; I69.354 Hemiplegia and hemiparesis following cerebral infarction affecting left non-dominant side; K52.839 Microscopic colitis, unspecified; K57.30 Diverticulosis of large intestine without perforation or abscess without bleeding; E87.6 Hypokalemia; Z21 Asymptomatic human immunodeficiency virus [HIV] infection status; D50.9 Iron deficiency anemia, unspecified; K44.9 Diaphragmatic hernia without obstruction or gangrene; Z20.822 Contact with and (suspected) exposure to COVID-19; I10 Essential (primary) hypertension; F41.9 Anxiety disorder, unspecified; E78.5 Hyperlipidemia, unspecified; G62.9 Polyneuropathy, unspecified; F32.9 Major depressive disorder, single episode, unspecified; K76.0 Fatty (change of) liver, not elsewhere classified; Z98.42 Cataract extraction status, left eye; Z98.41 Cataract extraction status, right eye; Z90.49 Acquired absence of other specified parts of digestive tract; Z90.81 Acquired absence of spleen; Z88.0 Allergy status to penicillin; Z88.2 Allergy status to sulfonamides; Z88.8 Allergy status to other drugs, medicaments and biological substances; Z91.041 Radiographic dye allergy status; Z80.0 Family history of malignant neoplasm of digestive organs; Z87.891 Personal history of nicotine dependence; Z87.11 Personal history of peptic ulcer disease
CPT/HCPCS: 10195; 62110; 62900; 70005